=== PATIENT | male | born 1950 | race Two or more races ===

== ENCOUNTER 2024-05-26 13:40 | Emergency (ER) | payer OTHER, SELFPAY ==
[2024-05-26 13:55] VITALS: BP 110/67; PULSE 75; RESP 20; TEMP 36.7; O2SAT 96; BMI 31.6
--- NOTE | 2024-05-26 14:04 | XR_ITS ---
Examination: AP chest single view Technique one AP upright portable chest single view Exam date and time: May 26, 2024 1440 hours INDICATIONS: Patient fell today with injury of the chest, chest pain FINDINGS: Moderate enlargement cardiac contour Central vascular congestion No pneumothorax Clavicles ribs appear intact IMPRESSION: No pneumothorax pulmonary contusion or hemothorax
--- NOTE | 2024-05-26 14:04 | EKG_ITS ---
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: : 1950 Requested By: Sonya Eden Order Number: [id number] Reading MD: Sonya Eden Measurements Intervals Gaines Rate: 73 P: 60 FL: 280 QRS: -85 QRSD: 170 T: 83 QT: 463 QTc: 513 Interpretive Statements SINUS RHYTHM WITH FIRST DEGREE AV BLOCK RIGHT BUNDLE BRANCH BLOCK [120+ ms QRS DURATION, UPRIGHT V1, 40+ ms S IN I/aVL/V4/V5/V6] POSSIBLE ANTERIOR MYOCARDIAL INFARCTION , OF INDETERMINATE AGE [30 ms Q WAVE IN V3/V4, OR R < 0.2 mV IN V4] INFERIOR MYOCARDIAL INFARCTION , POSSIBLY ACUTE [40+ ms Q WAVE AND/OR ST/T ABNORMALITY IN II/aVF] ACUTE [place] Compared to ECG 04/26/2024 18:10:35 Right bundle-branch block now present Ectopic atrial rhythm no longer present Intraventricular conduction delay no longer present Myocardial infarct finding still present /store/S0/[id number]
--- NOTE | 2024-05-26 14:05 | XR_ITS ---
Examination: CT cervical spine without contrast 2-D sagittal reconstructions 2-D coronal reconstructions 3-D reconstructions. Exam date and time:May 26, 2024 1424 hours INDICATIONS: Patient fell today with into the neck, neck pain CTDI:vol (mGy) 8.73 DLP: (mGycm) 202 Technique: Multiple 2 mm axial sections of the cervical spine have been obtained. The coronal and sagittal reconstructions have been obtained. 3-D reconstructions have been obtained. Low dose protocols were performed. One or more of the following dose reduction techniques were used; automated exposure control, adjustment of the mA and/or KV according to patient size, use of iterative reconstruction technique. Findings: Axial sections demonstrate intact base of the skull. C1 exhibit satisfactory relationship to the odontoid. No acute cervical vertebral body fracture seen. Alignment posterior spinous processes satisfactory. Impression: No acute cervical fracture.
--- NOTE | 2024-05-26 14:05 | XR_ITS ---
Examination: CT brain head without contrast. 2-D sagittal coronal reconstructions Date and time of exam:May 26, 2024 at 1424 hours INDICATIONS: Patient fell today with injury to the head, laceration scalp head pain CTDI: vol (mGy):58.3 DLP: (mGycm):1269 Technique: Multiple CT axial sections of the brain have been obtained, 5 mm slice thickness. Contrast has not been administered. 2-D sagittal, coronal reconstructions have been obtained Low dose protocols were performed. One or more of the following dose reduction techniques were used; automated exposure control, adjustment of the mA and/or KV according to patient size, use of iterative reconstruction technique. Findings: No significant ventricular enlargement. 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 No mass effect or midline shift Basal cisterns are not remarkable. Fourth ventricle is midline. Cranial vault intact. Impression: Negative for acute hemorrhage, mass effect or midline shift
--- NOTE | 2024-05-26 14:06 | EDNOTE_ITS ---
ED Head Injury RME/HPI General Chief complaint: Head Injury Stated complaint: HEAD INJURY POST FALL W/ LOC; PREV TIA & THINNERS Time Seen by Provider: 05/26/24 13:51 Arrival date/time: 05/26/24 13:40 RME / HPI RME / HPI Narrative: 74-year-old male patient with significant history of TIA, on blood thinner, came in for evaluation regarding syncope. Patient was on the porch suddenly developed sudden onset of dizziness, and fell on his face resulting into abrasion, laceration, left forehead. Patient denies any neck pain. Patient does not remember for few minutes what happened. Patient denies any upper or lower extremity weakness, did not denies any slurring of speech, patient is talking normal complete sentences. Denies any other complaints no medications taken prior to arrival. Related Data Home Medications ?Medication ?Instructions ?Recorded ?Confirmed albuterol sulfate 90 mcg/actuation 2 puff inhalation Q6H PRN Wheezing 10/09/18 04/25/24 aerosol inhaler (ProAir HFA) aspirin 81 mg capsule 81 mg PO QDAY 04/25/24 04/25/24 atorvastatin 80 mg tablet 80 mg PO QDAY 04/25/24 04/25/24 bumetanide 1 mg tablet 1 mg PO BID 04/25/24 04/25/24 empagliflozin 10 mg tablet 10 mg PO QDAY 04/25/24 04/25/24 metoprolol succinate 25 mg 25 mg PO QDAY 04/25/24 04/25/24 tablet,extended release 24 hr sacubitril 24 mg-valsartan 26 mg 1 tab PO BID 04/25/24 04/25/24 tablet sitagliptin 50 mg tablet 50 mg PO QDAY 04/25/24 04/25/24 Previous Rx's ?Medication ?Instructions ?Recorded cephalexin 500 mg capsule 500 mg PO TID 7 days #21 caps 05/26/24 Allergies Allergy/AdvReac Type Severity Reaction Status Date / Time No Known Drug Allergies Allergy Unknown Verified 05/26/24 13:43 Review of Systems Review of Systems Narrative Review of Systems: Review of system reviewed and within normal limits except mentioned in HPI ED Exam Narrative Physical exam: VITAL SIGNS: Reviewed. GENERAL APPEARANCE: Alert and interactive, follows commands, no acute distress, HEAD AND FACE: + 2 cm gaping laceration left forehead, with abrasions noted surrounding ENT: PERRL, pink conjunctivitis, eyelid no trauma, Mucous membrane moist. NECK: Supple, nontender, no nuchal rigidity. CHEST: No tenderness, no crepitus, no paradoxical movement, no retractions. LUNGS: Clear, well ventilated, symmetric, no rales, no wheezing, no ronchi, no stridor, good breath sounds bilaterally. HEART: Regular rate, regular rhythm, no murmur, no gallops. ABDOMEN: Soft, positive bowel sounds, nondistended, no guarding, nontender, no rebound, no masses, RECTAL: Deferred. GENITAL: Deferred. NEUROLOGICAL: Gross motor function intact sensory function intact, Appropriate for age. MUSCULOSKELETAL: low back nontender, full range of motion. EXTREMITIES: Nontender, full range of motion. SKIN: Color pink, dry, no rash, no lacerations, no abrasions, no contusions. LYMPHATICS: Deferred. Course Quality Measures none Orders Category Date Time Status EKG (ED ONLY) *Do not use* NOW Care 05/26/24 14:[address] cervical spine wo con Stat Exams 05/26/24 14:[address] head/brain wo con Stat Exams 05/26/24 14:05 Completed EKG (ED Only) Stat Exams 05/26/24 14:04 Draft XR chest 1V Stat Exams 05/26/24 14:04 Completed B-Type Natriuretic Peptide Stat Lab 05/26/24 14:37 Completed CBC Stat Lab 05/26/24 14:37 Completed Comprehensive Metabolic Panel Stat Lab 05/26/24 14:37 Completed Partial Thromboplastin Time Stat Lab 05/26/24 14:37 Completed Prothrombin Time with INR Stat Lab 05/26/24 14:37 Completed Troponin I Stat Lab 05/26/24 14:37 Completed Urinalysis, C/S if Indicated Stat Lab 05/26/24 15:50 Completed cephALEXin [Keflex] Med 05/26/24 16:31 Discontinued 500 mg PO X1 ONE Vital Signs Vital signs: Vital Signs Temperature 98.0 F 05/26/24 13:55 Pulse Rate 75 05/26/24 13:55 Respiratory Rate 20 05/26/24 13:55 Blood Pressure 110/67 05/26/24 13:55 Pulse Oximetry (%) 96 05/26/24 13:55 Oxygen Delivery Method Room Air 05/26/24 13:55 Procedures -ED Laceration Laceration 1: Site: face (Forehead) Side (If applicable): left Size (cm): 2 Description: linear and clean Depth: simple, single layer Local Anesthetic: lidocaine 1% Amount of anesthesia used (mL): 3 Pre-repair: wound explored, irrigated extensively and deep structures intact Skin layer closed with: nylon Size (cm): 4-0 Number of sutures: 3 Technique: simple, interrupted Head Injury MDM Narrative MDM Narrative:: CT scan of the head came back unremarkable. CT scan of the cervical spine came back unremarkable. Laboratory enriqueta came back unremarkable. Except for BNP of more than 3280. Creatinine was also noted to be 2.0, which is chronic patient's baseline. Patient data External records reviewed:: None Clinical information provided by:: patient Social determinants that could affect healthcare access:: none Patient has the following chronic illnesses:: Chronic kidney disease, congestive heart failure, How is presenting disease/condition affected by chronic disease/condition?: exacerbated by Evaluation data The following diagnostics were reviewed and interpreted by me:: lab results, radiology exam(s) and EKG tracing(s) Lab and/or radiology exams considered but not ordered:: None Interpretation Summary: EKG showed sinus rhythm, ventricular rate of 83 bpm, no ST segment elevation depression noted CT scan of the head came back unremarkable. CT scan of the cervical spine came back unremarkable. Chest x-ray showed no acute pathology. Medications / Prescriptions Medications or Prescriptions considered but not ordered:: None Medication administrations:: Medication Administration History Discontinued Medications Cephalexin HCl (Cephalexin 250 Mg Capsule) 500 mg PO X1 ONE Stop: 05/26/24 16:32 Keflex Consultations Consultation(s) initiated? (list below): No Diagnosis Differential diagnosis head injury: other (Fall, forehead laceration, syncope) Most likely diagnosis given after review of the tests above:: Forehead laceration, syncope Admission Indicated Admission indicated?: not indicated Explain why admission is indicated or not indicated:: Patient stable for discharge. Patient was noted to be ambulatory in the ED. As witnessed by me Admission Request Was there a request for admission?: No Disposition Plan Disposition Plan: Discharge Discharge Attestation Discharge Attestation: The patient was given an opportunity to ask questions and understood the discharge instructions. Discharge instructions specifically effects, indications for sooner follow up or return to the emergency department, and the expected course of current diagnosis. Patient condition: Stable Discharge Plan Plan Patient Disposition: HOME (Self Care) Disposition Comment: Stable Prescriptions/Referrals Prescriptions/Med Rec: New cephalexin 500 mg capsule 500 mg PO TID 7 Days Qty: 21 0RF No Action albuterol sulfate [ProAir HFA] 90 mcg/actuation Hfa Aerosol Inhaler 2 puff INHALATION Q6H PRN (Reason: Wheezing) atorvastatin 80 mg Tablet 80 mg PO QDAY bumetanide 1 mg Tablet 1 mg PO BID metoprolol succinate 25 mg Tablet Extended Release 24 Hr 25 mg PO QDAY empagliflozin 10 mg Tablet 10 mg PO QDAY sacubitril-valsartan 24-26 mg Tablet 1 tab PO BID aspirin 81 mg Capsule 81 mg PO QDAY sitagliptin 50 mg Tablet 50 mg PO QDAY Problem List Clinical Impression: Forehead laceration, Syncope Patient/Caregiver Discharge Instructions Discharge Activity: activity as tolerated Education Materials: ED Head Injury (Adult) Additional Instructions: Thank you for the opportunity for serving you today. You are stable for discharged . You are advised to: Follow-up with your PCP in 1 to 2 days Return to ED for worsening of symptoms Increase oral fluids Take medication as prescribed Daily dressing Congespirin For removal of stitches in 7 days Print Language: Nigerian Stand Alone Forms: Sloane Award Info., Patient Portal Info Letter THERESA/SHER Supervising Physician THERESA/SHER Supervising Physician: MD Joseph
[2024-05-26 15:16] LABS: Basophils % (Auto) 0 % (0-2.5); Eosinophils % (Auto) 0 % (0-10); Hematocrit 40.8 % (41.0-53.0); Hemoglobin 13.2 g/dL (13.5-16.0); Immature Granulocytes % (Auto) 0 % (0-0); Immature Granulocytes Auto 0.03 Thou/mm3 (0.00-0.00); Lymphocytes # (Auto) 0.5 Thou/mm3 (1.0-4.8); Lymphocytes % (Auto) 6 % (10-50); Mean Corpuscular HGB Conc 32.4 g/dl (31.0-37.0); Mean Corpuscular Hemoglobin 31.8 pg (25.0-35.0); Mean Corpuscular Volume 98 fL (80-100); Monocytes # (Auto) 0.4 Thou/mm3 (0.0-0.8); Monocytes % (Auto) 5 % (0-12); Neutrophils # (Auto) 7.4 Thou/mm3 (1.8-7.7); Neutrophils % (Auto) 89 % (37-80); Nucleated Red Blood Cell % 0 /100 WBC (0); Platelet Count 247 Thou/mm3 (140-440); Red Blood Count 4.15 Miln/mm3 (4.50-5.90); White Blood Count 8.3 Thou/mm3 (3.8-10.6)
[2024-05-26 15:48] LABS: B-Type Natriuretic Peptide > 3280 pg/mL (0-100)
[2024-05-26 15:51] LABS: Alanine Aminotransferase 16 U/L (10-49); Albumin/Globulin Ratio 1.3 (1.2-2.2); Alkaline Phosphatase 95 U/L (46-116); Anion Gap 8 (7-16); Aspartate Amino Transferase 21 U/L (0-34); BUN/Creatinine Ratio 34 Ratio (12-20); Bilirubin,Total 0.5 mg/dL (0.3-1.2); Blood Urea Nitrogen 68 mg/dL (9-23); Calcium 9.2 mg/dL (8.3-10.6); Calcium (Corrected) 9.2 mg/dL (8.5-10.1); Carbon Dioxide 27.8 mMol/L (20.0-31.0); Chloride 103 mMol/L (98-107); Glucose 174 mg/dL (74-106); Osmolality,Calculated 301 (275-295); Potassium 4.7 mMol/L (3.4-5.1); Sodium 139 mMol/L (136-145); Troponin I 0.032 ng/mL (0.0-0.045); eGFR 35 See Note
[2024-05-26 15:57] LABS: Collection Type, Urine Clean Catch; Squamous Epithelial Cell,Urine 0 /hpf (0-5)
[2024-05-26 15:58] LABS: INR 1.4 (0.9-1.3); Partial Thromboplastin Time 27.6 Seconds (22.0-36.0)
[2024-05-26 16:08] LABS: Bilirubin,Urine Negative (Negative); Blood,Urine Negative (Negative); Clarity,Urine Clear (Clear/Hazy); Color,Urine Lt-Yellow (Lt Yel-Yel); Culture Indicated,Urine Not Indicated; Glucose, Urine 4+ (Negative); Ketones,Urine Negative (Negative); Leukocyte Esterase,Urine Negative (Negative); Nitrite,Urine Negative (Negative); PH,Urine 6.5 (5.0-7.0); Protein,Urine Trace (Neg - Trace); RBC,Urine < 1 /hpf (0-3); Specific Gravity,Urine 1.015 (1.001-1.035); Urobilinogen,Urine Negative mg/dL (0.0-1.0); WBC,Urine 1 /hpf (0-5)
== END 2024-05-26 19:01 | disposition home or self-care (01) ==
LOC: SERX 19:16
PROVIDERS: Nurse Practitioner Family; Emergency Provider Emergency Medicine
DX: S01.81XA Laceration without foreign body of other part of head, initial encounter (principal); S29.9XXA Unspecified injury of thorax, initial encounter; R55 Syncope and collapse; I44.0 Atrioventricular block, first degree; I45.10 Unspecified right bundle-branch block; W18.39XA Other fall on same level, initial encounter
CPT/HCPCS: 12011; 36415; 70450; 71045; 72125; 80053; 81001; 83880; 84484; 85025; 85610; 85730; 93005; 99284

== ENCOUNTER 2024-06-08 15:38 | Emergency (ER) | payer MEDICARE, OTHER, SELFPAY ==
[2024-06-08 16:04] VITALS: BP 99/61; PULSE 66; RESP 18; TEMP 36.9; O2SAT 96
--- NOTE | 2024-06-08 16:21 | EDNOTE_ITS ---
ED General RME/HPI General Chief complaint: Medical Clearance Stated complaint: removal of stitches Time Seen by Provider: 06/08/24 16:16 Arrival date/time: 06/08/24 15:38 RME / HPI RME / HPI narrative: 74-year-old male patient came in for evaluation regarding request for removal of stitches in the forehead. Patient sustained a ground-level fall about 2 weeks ago, sustaining abrasion/laceration to the forehead. No complaints on the area. Patient is ambulatory denies fever. Related Data Home Medications ?Medication ?Instructions ?Recorded ?Confirmed albuterol sulfate 90 mcg/actuation 2 puff inhalation Q6H PRN Wheezing 10/09/18 05/28/24 aerosol inhaler (ProAir HFA) aspirin 81 mg capsule 81 mg PO QDAY 04/25/24 05/28/24 atorvastatin 80 mg tablet 80 mg PO QDAY 04/25/24 05/28/24 bumetanide 1 mg tablet 1 mg PO BID 04/25/24 05/28/24 empagliflozin 10 mg tablet 10 mg PO QDAY 04/25/24 05/28/24 sacubitril 24 mg-valsartan 26 mg 1 tab PO BID 04/25/24 05/28/24 tablet nicotine 14 mg/24 hr daily See Rx Instructions .Route .COMPLEX 05/28/24 05/28/24 transdermal patch (Nicoderm CQ) Previous Rx's ?Medication ?Instructions ?Recorded carvedilol 3.125 mg tablet 3.125 mg PO BID 30 days #60 tabs 06/01/24 Allergies Allergy/AdvReac Type Severity Reaction Status Date / Time No Known Drug Allergies Allergy Unknown Verified 05/26/24 13:43 Review of Systems Review of Systems Narrative Review of Systems: Review of system reviewed and within normal limits except mentioned in HPI ED Exam Narrative Physical exam: VITAL SIGNS: Reviewed. GENERAL APPEARANCE: Alert and interactive, follows commands, no acute distress, HEAD AND FACE: Healed laceration left side of the forehead with stitches x 3, no drainage noted no redness nontender ENT: PERRL, pink conjunctivitis, eyelid no trauma, Mucous membrane moist. NECK: Supple, nontender, no nuchal rigidity. CHEST: No tenderness, no crepitus, no paradoxical movement, no retractions. LUNGS: Clear, well ventilated, symmetric, no rales, no wheezing, no ronchi, no stridor, good breath sounds bilaterally. HEART: Regular rate, regular rhythm, no murmur, no gallops. ABDOMEN: Soft, positive bowel sounds, nondistended, no guarding, nontender, no rebound, no masses, RECTAL: Deferred. GENITAL: Deferred. NEUROLOGICAL: Gross motor function intact sensory function intact, Appropriate for age. MUSCULOSKELETAL: low back nontender, full range of motion. EXTREMITIES: Nontender, full range of motion. SKIN: Color pink, dry, no rash, no lacerations, no abrasions, no contusions. LYMPHATICS: Deferred. Course Quality Measures none Vital Signs Vital signs: Vital Signs Temperature 98.5 F 06/08/24 16:04 Pulse Rate 66 06/08/24 16:04 Respiratory Rate 18 06/08/24 16:04 Blood Pressure 99/61 06/08/24 16:04 Pulse Oximetry (%) 96 06/08/24 16:04 Oxygen Delivery Method Room Air 06/08/24 16:04 [facility] Patient data External records reviewed:: None Clinical information provided by:: none Social determinants that could affect healthcare access:: none Patient has the following chronic illnesses:: Hypertension congestive heart failure How is presenting disease/condition affected by chronic disease/condition?: uneffected by Evaluation data The following diagnostics were reviewed and interpreted by me:: other (specify) (None) Lab and/or radiology exams considered but not ordered:: None Interpretation Summary: Plan Medications Medications considered but not ordered:: None Medication administrations:: None Consultations Consultation(s) initiated? (list below): No Diagnosis Differential Diagnosis ED Complaint MDM: Encounter with removal of sutures, wound check Most likely diagnosis given after review of the tests above:: Encounter with removal of suture Admission Indicated Admission indicated?: not indicated Explain why admission is indicated or not indicated:: Stable for discharge Admission Request Was there a request for admission?: No Disposition Plan Disposition Plan: Discharge Discharge Attestation Discharge Attestation: The patient and all family members were given an opportunity to ask questions and understood the discharge instructions. Discharge instructions specifically effects, indications for sooner follow up or return to the emergency department, and the expected course of current diagnosis. Patient condition: Stable Medical Decision Making Differential Diagnosis Differential Diagnosis: Encounter with removal of sutures, wound check Discharge Plan Plan Patient Disposition: HOME (Self Care) Disposition Comment: Stable Prescriptions/Referrals Prescriptions/Med Rec: No Action albuterol sulfate [ProAir HFA] 90 mcg/actuation Hfa Aerosol Inhaler 2 puff INHALATION Q6H PRN (Reason: Wheezing) atorvastatin 80 mg Tablet 80 mg PO QDAY bumetanide 1 mg Tablet 1 mg PO BID empagliflozin 10 mg Tablet 10 mg PO QDAY sacubitril-valsartan 24-26 mg Tablet 1 tab PO BID Hold Instructions: Resume on 06/01/24. Restart after seeing your PCP or Dr. Horta, depending on your BP. aspirin 81 mg Capsule 81 mg PO QDAY nicotine [Nicoderm CQ] 14 mg/24 hr Patch 24 Hour See Rx Instructions .ROUTE .COMPLEX Rx Instructions: for smoking cessation carvedilol 3.125 mg Tablet 3.125 mg PO BID 30 Days Qty: 60 0RF Problem List Clinical Impression: Encounter for removal of sutures Patient/Caregiver Discharge Instructions Discharge Activity: activity as tolerated Education Materials: ED Stitches/Staple Removal No ... Additional Instructions: Thank you for the opportunity for serving you today. You are stable for discharged . You are advised to: Follow-up with your PCP in 1 to 2 days Return to ED for worsening of symptoms Increase oral fluids Print Language: Hungarian Stand Alone Forms: Sloane Award Info., Patient Portal Info Letter THERESA/SHER Supervising Physician THERESA/SHER Supervising Physician: MD maryjo
== END 2024-06-08 16:24 | disposition home or self-care (01) ==
LOC: SERX 16:23
PROVIDERS: Emergency Provider Emergency Medicine
DX: S01.81XD Laceration without foreign body of other part of head, subsequent encounter (principal); W18.30XD Fall on same level, unspecified, subsequent encounter
CPT/HCPCS: 99282

== ENCOUNTER 2024-06-10 04:29 | Emergency (ER) | payer OTHER, SELFPAY ==
[2024-06-10 04:30] VITALS: BMI 34.4
[2024-06-10 04:33] VITALS: BP 121/83; PULSE 81; RESP 16; TEMP 36.7; O2SAT 97
--- NOTE | 2024-06-10 05:26 | EDRME_ITS ---
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 Patient denies CP and SOB. Patient has been taking his meds as prescribed. Chief Complaint: Extremity Problem,Nontraumatic Vital signs: Vital Signs Temperature 98.1 F 06/10/24 04:33 Pulse Rate 81 06/10/24 04:33 Respiratory Rate 16 06/10/24 04:33 Blood Pressure 121/83 06/10/24 04:33 Pulse Oximetry (%) 97 06/10/24 04:33 Oxygen Delivery Method Room Air 06/10/24 04:33
--- NOTE | 2024-06-10 05:42 | PD.EDEXREM ---
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 Patient denies CP and SOB. Patient has been taking his meds as prescribed. Dr. Laurent: Patient denies any emergency medical condition. Related Data Home Medications ?Medication ?Instructions ?Recorded ?Confirmed albuterol sulfate 90 mcg/actuation 2 puff inhalation Q6H PRN Wheezing 10/09/18 05/28/24 aerosol inhaler (ProAir HFA) aspirin 81 mg capsule 81 mg PO QDAY 04/25/24 05/28/24 atorvastatin 80 mg tablet 80 mg PO QDAY 04/25/24 05/28/24 bumetanide 1 mg tablet 1 mg PO BID 04/25/24 05/28/24 empagliflozin 10 mg tablet 10 mg PO QDAY 04/25/24 05/28/24 sacubitril 24 mg-valsartan 26 mg 1 tab PO BID 04/25/24 05/28/24 tablet nicotine 14 mg/24 hr daily See Rx Instructions .Route .COMPLEX 05/28/24 05/28/24 transdermal patch (Nicoderm CQ) Previous Rx's ?Medication ?Instructions ?Recorded carvedilol 3.125 mg tablet 3.125 mg PO BID 30 days #60 tabs 06/01/24 Allergies Allergy/AdvReac Type Severity Reaction Status Date / Time No Known Drug Allergies Allergy Unknown Verified 06/10/24 04:32 Review of Systems Review of Systems Systems Reviewed: All systems reviewed, normal except as documented ED Exam Narrative Physical exam: Patient is [place] General Limitations: Present no limitations General appearance: Present alert and in no apparent distress Eye Eye exam: Present normal appearance Neck Neck exam: Present normal inspection Respiratory Respiratory exam: Present normal lung sounds bilaterally and respiratory distress Cardiovascular Cardiovascular exam: Present regular rate and normal rhythm Abdominal Exam Abdominal exam: Present soft Extremities Exam Extremities exam: Present other (Patient has 2+ BLE pretibial edema as well as chronic stasis dermatitis of BLE) Course Quality Measures none Orders Category Date Time Status BNP [B-Type Natriuretic Peptide] Stat Lab 06/10/24 05:48 Completed CBC Stat Lab 06/10/24 05:48 Completed CMP [Comprehensive Metabolic Panel] Stat Lab 06/10/24 05:48 Completed Urinalysis, C/S if Indicated Stat Lab 06/10/24 07:03 Completed Vital Signs Vital signs: Vital Signs Temperature 98.1 F 06/10/24 04:33 Pulse Rate 81 06/10/24 04:33 Respiratory Rate 16 06/10/24 04:33 Blood Pressure 121/83 06/10/24 04:33 Pulse Oximetry (%) 97 06/10/24 04:33 Oxygen Delivery Method Room Air 06/10/24 04:33 Extremity Problem Patient data External records reviewed:: [facility] previous records Clinical information provided by:: patient Social determinants that could affect healthcare access:: none Patient has the following chronic illnesses:: Meth. CHF How is presenting disease/condition affected by chronic disease/condition?: caused by Evaluation data The following diagnostics were reviewed and interpreted by me:: lab results Lab and/or radiology exams considered but not ordered:: Noted Interpretation Summary: Noted Medications / Prescriptions Medications or Prescriptions considered but not ordered:: Patient eloped Medication administrations:: NA Consultations Consultation(s) initiated? (list below): No Diagnosis Most likely diagnosis given after review of the tests above:: Edema Admission Indicated Admission indicated?: not indicated Admission Request Was there a request for admission?: No Disposition Plan Disposition Plan: Discharge Discharge Attestation Discharge Attestation: The patient and all family members were given an opportunity to ask questions and understood the discharge instructions. Discharge instructions specifically effects, indications for sooner follow up or return to the emergency department, and the expected course of current diagnosis. Patient condition: Stable Discharge Plan Plan Patient Disposition: Elopement Prescriptions/Referrals Prescriptions/Med Rec: No Action albuterol sulfate [ProAir HFA] 90 mcg/actuation Hfa Aerosol Inhaler 2 puff INHALATION Q6H PRN (Reason: Wheezing) atorvastatin 80 mg Tablet 80 mg PO QDAY bumetanide 1 mg Tablet 1 mg PO BID empagliflozin 10 mg Tablet 10 mg PO QDAY sacubitril-valsartan 24-26 mg Tablet 1 tab PO BID Hold Instructions: Resume on 06/01/24. Restart after seeing your PCP or Dr. Horta, depending on your BP. aspirin 81 mg Capsule 81 mg PO QDAY nicotine [Nicoderm CQ] 14 mg/24 hr Patch 24 Hour See Rx Instructions .ROUTE .COMPLEX Rx Instructions: for smoking cessation carvedilol 3.125 mg Tablet 3.125 mg PO BID 30 Days Qty: 60 0RF Referrals: No Primary/Family,Physician [Primary Care Provider] - In 1 week Problem List Clinical Impression: Edema Patient/Caregiver Discharge Instructions Print Language: Slovenian
[2024-06-10 06:16] LABS: Basophils # (Auto) 0.1 Thou/mm3 (0.0-0.2); Basophils % (Auto) 1 % (0-2.5); Eosinophils # (Auto) 0.3 Thou/mm3 (0.0-0.5); Eosinophils % (Auto) 4 % (0-10); Hematocrit 39.1 % (41.0-53.0); Hemoglobin 12.6 g/dL (13.5-16.0); Immature Granulocytes % (Auto) 0 % (0-0); Immature Granulocytes Auto 0.03 Thou/mm3 (0.00-0.00); Lymphocytes # (Auto) 1.5 Thou/mm3 (1.0-4.8); Lymphocytes % (Auto) 16 % (10-50); Mean Corpuscular HGB Conc 32.2 g/dl (31.0-37.0); Mean Corpuscular Hemoglobin 30.9 pg (25.0-35.0); Mean Corpuscular Volume 96 fL (80-100); Monocytes # (Auto) 0.7 Thou/mm3 (0.0-0.8); Monocytes % (Auto) 8 % (0-12); Neutrophils # (Auto) 6.5 Thou/mm3 (1.8-7.7); Neutrophils % (Auto) 72 % (37-80); Nucleated Red Blood Cell % 0 /100 WBC (0); Platelet Count 144 Thou/mm3 (140-440); RDW Standard Deviation 56.7 fL (35.1-43.9); Red Blood Count 4.08 Miln/mm3 (4.50-5.90)
[2024-06-10 06:53] LABS: Alanine Aminotransferase 19 U/L (10-49); Albumin, Serum 3.9 gm/dL (3.4-4.8); Albumin/Globulin Ratio 1.4 (1.2-2.2); Alkaline Phosphatase 100 U/L (46-116); Anion Gap 5 (7-16); Aspartate Amino Transferase 26 U/L (0-34); BUN/Creatinine Ratio 22 Ratio (12-20); Blood Urea Nitrogen 44 mg/dL (9-23); Calcium 9.5 mg/dL (8.3-10.6); Calcium (Corrected) 9.6 mg/dL (8.5-10.1); Carbon Dioxide 29.4 mMol/L (20.0-31.0); Chloride 108 mMol/L (98-107); Estimated Creatinine Clearance 37.6 mL/min (>60); Globulin 2.7 gm/dL (2.3-3.5); Glucose 103 mg/dL (74-106); Osmolality,Calculated 294 (275-295); Potassium 4.6 mMol/L (3.4-5.1); Sodium 142 mMol/L (136-145); Total Protein 6.6 gm/dL (5.7-8.2); eGFR 35 See Note
[2024-06-10 07:28] LABS: Collection Type, Urine Clean Catch
[2024-06-10 07:46] LABS: Bilirubin,Urine Negative (Negative); Blood,Urine Negative (Negative); Clarity,Urine Clear (Clear/Hazy); Color,Urine Lt-Yellow (Lt Yel-Yel); Culture Indicated,Urine Not Indicated; Glucose, Urine 4+ (Negative); Ketones,Urine Negative (Negative); Leukocyte Esterase,Urine Negative (Negative); Nitrite,Urine Negative (Negative); PH,Urine 6.5 (5.0-7.0); Protein,Urine Trace (Neg - Trace); RBC,Urine < 1 /hpf (0-3); Specific Gravity,Urine 1.017 (1.001-1.035); Squamous Epithelial Cell,Urine < 1 /hpf (0-5); Urobilinogen,Urine Negative mg/dL (0.0-1.0); WBC,Urine < 1 /hpf (0-5)
[2024-06-10 07:58] VITALS: BP 129/77; PULSE 79; RESP 20; TEMP 36.9; O2SAT 97
--- NOTE | 2024-06-10 10:18 | PC.NURSE ---
pt eloped from triage @1000
[2024-06-10 11:09] LABS: Bilirubin,Total 0.6 mg/dL (0.3-1.2)
[2024-06-10 12:05] LABS: B-Type Natriuretic Peptide > 3280 pg/mL (0-100)
== END 2024-06-10 10:00 | disposition left against medical advice (07) ==
PROVIDERS: Physician Assistant; Emergency Provider Emergency Medicine
DX: R60.0 Localized edema (principal)
CPT/HCPCS: 36415; 80053; 81001; 83880; 85025; 99283

== ENCOUNTER 2024-06-22 10:13 | Emergency (ER) | payer OTHER, SELFPAY ==
[2024-06-22] VITALS (8 sets, daily range): BP systolic 105–121; BP diastolic 70–89; PULSE 60–72; RESP 13–24; TEMP 36.8–37.1; O2SAT 90–99; BMI 31.6
--- NOTE | 2024-06-22 10:25 | EKG_ITS ---
[facility] Test Date: 2024-06-22 Pat Name: MEREDITH AYALA Department: Room: - Gender: Male Director Mortgage: : 1950 Requested By: Wei Prince (CLARA) Order Number: [id number] Reading MD: Wei Prince (DEMURRAGE WORKER) Measurements Intervals Jachin Rate: 61 P: -48 MD: 314 QRS: 252 QRSD: 187 T: 82 QT: 479 QTc: 484 Interpretive Statements ELECTRONIC ATRIAL PACEMAKER ELECTRONIC VENTRICULAR PACEMAKER ABNORMAL RHYTHM ECG Compared to ECG 05/28/2024 08:59:56 Sinus rhythm no longer present Ventricular premature complex(es) no longer present First degree AV block no longer present Left-axis deviation no longer present Intraventricular conduction delay no longer present Myocardial infarct finding no longer present /store/S0/[id number]
--- NOTE | 2024-06-22 10:31 | PD.EDRME ---
Rapid Medical Screening Exam RME Arrival date/time: 06/22/24 10:13 74-year-old male with history of hypertension, CHF, methamphetamine abuse presents the emergency department today with complaints of shortness of breath Chief Complaint: Extremity Problem,Nontraumatic Time Seen by Provider: 06/22/24 10:23 Vital signs: Vital Signs Temperature 98.2 F 06/22/24 10:30 Pulse Rate 60 06/22/24 10:30 Respiratory Rate 22 H 06/22/24 10:30 Blood Pressure 121/79 06/22/24 10:30 Pulse Oximetry (%) 95 06/22/24 10:30 Oxygen Delivery Method Room Air 06/22/24 10:30
[2024-06-22 10:57] LABS: Basophils # (Auto) 0.1 Thou/mm3 (0.0-0.2); Basophils % (Auto) 1 % (0-2.5); Eosinophils # (Auto) 0.4 Thou/mm3 (0.0-0.5); Eosinophils % (Auto) 5 % (0-10); Hematocrit 40.8 % (41.0-53.0); Hemoglobin 12.9 g/dL (13.5-16.0); Immature Granulocytes % (Auto) 0 % (0-0); Immature Granulocytes Auto 0.02 Thou/mm3 (0.00-0.00); Lymphocytes # (Auto) 1.3 Thou/mm3 (1.0-4.8); Lymphocytes % (Auto) 19 % (10-50); Mean Corpuscular HGB Conc 31.6 g/dl (31.0-37.0); Mean Corpuscular Hemoglobin 30.6 pg (25.0-35.0); Mean Corpuscular Volume 97 fL (80-100); Monocytes # (Auto) 0.6 Thou/mm3 (0.0-0.8); Monocytes % (Auto) 8 % (0-12); Neutrophils # (Auto) 4.6 Thou/mm3 (1.8-7.7); Neutrophils % (Auto) 67 % (37-80); Nucleated Red Blood Cell % 0 /100 WBC (0); Platelet Count 137 Thou/mm3 (140-440); RDW Standard Deviation 56.3 fL (35.1-43.9); Red Blood Count 4.22 Miln/mm3 (4.50-5.90); White Blood Count 6.9 Thou/mm3 (3.8-10.6)
--- NOTE | 2024-06-22 10:58 | XR_ITS ---
Examination: AP chest single view TECHNIQUE: AP portable upright chest single view Exam date and time: June 22, 2024 1126 hours Comparison May 28, 2024 INDICATIONS: Shortness of breath today FINDINGS: Bilateral moderate enlargement cardiac contour Moderate vascular congestion Opacity right base consistent with pneumonia Moderate osteopenia IMPRESSION: Right base pneumonia
[2024-06-22] MEDS: predniSONE 20 MG TABLET 60 MG PO (11:07)
[2024-06-22] MEDS: FUROSEMIDE INJ 10 MG/ML 4ML VIAL 40 MG IVP ×2 (11:07→12:51)
[2024-06-22 11:12] LABS: INR 1.4 (0.9-1.3)
[2024-06-22] MEDS: ALBUTEROL RT 2.5 MG/0.5 ML NEBU 10 MG INH (11:14)
[2024-06-22] MEDS: IPRATROPIUM RT 0.5 MG/ 2.5 ML NEBU 1 MG INH (11:14)
[2024-06-22 11:27] LABS: Alanine Aminotransferase 24 U/L (10-49); Albumin, Serum 4.2 gm/dL (3.4-4.8); Albumin/Globulin Ratio 1.4 (1.2-2.2); Alkaline Phosphatase 119 U/L (46-116); Anion Gap 6 (7-16); Aspartate Amino Transferase 30 U/L (0-34); BUN/Creatinine Ratio 26 Ratio (12-20); Bilirubin,Total 0.7 mg/dL (0.3-1.2); Blood Urea Nitrogen 52 mg/dL (9-23); Calcium 9.3 mg/dL (8.3-10.6); Calcium (Corrected) 9.3 mg/dL (8.5-10.1); Carbon Dioxide 26.9 mMol/L (20.0-31.0); Chloride 106 mMol/L (98-107); Globulin 3.1 gm/dL (2.3-3.5); Glucose 92 mg/dL (74-106); Magnesium 2.9 mg/dL (1.6-2.6); Osmolality,Calculated 291 (275-295); Potassium 4.6 mMol/L (3.4-5.1); Sodium 139 mMol/L (136-145); Total Protein 7.3 gm/dL (5.7-8.2); Troponin I 0.029 ng/mL (0.0-0.045); eGFR 35 See Note
[2024-06-22 11:32] LABS: B-Type Natriuretic Peptide > 3280 pg/mL (0-100)
[2024-06-22 11:49] LABS: Amphetamine/Methamp Scrn,U Negative (Negative); Barbiturate Screen,Urine Negative (Negative); Benzodiazepines Screen,Urine Negative (Negative); Benzoylecgonine Screen, Ur Negative (Negative); Fentanyl Screen,Urine Negative (Negative); Opiate Screen,Urine Negative (Negative); THC Screen,Urine Negative (Negative)
--- NOTE | 2024-06-22 12:59 | PC.NURSE ---
Pt given sandwich, hips, and drink, per pt request.
--- NOTE | 2024-06-22 17:02 | PD.EDSOB ---
ED SOB =RME/HPI General Chief Complaint: Extremity Problem,Nontraumatic Stated Complaint: BILAT LEG SWELLING AND SOB/WHEEZING X YESTERDAY Time Seen by Provider: 06/22/24 10:23 Arrival date/time: 06/22/24 10:13 RME / HPI RME / HPI Narrative: 06/22/24 10:13 74-year-old male with history of hypertension, CHF, methamphetamine abuse presents the emergency department today with complaints of shortness of breath KUAH HPI: 74-year-old male with a history of CHF, COPD (on 2 L nasal cannula), past methamphetamine use (last use over 1 year ago) who presents to the emergency department with worsening shortness of breath, productive cough, and lower extremity swelling. He denies chest pain. He denies fevers chills or sweats. He denies sick contact. He notes copious productive action of yellow to green sputum without blood or brawny streaks. Related Data Home Medications ?Medication ?Instructions ?Recorded ?Confirmed albuterol sulfate 90 mcg/actuation 2 puff inhalation Q6H PRN Wheezing 10/09/18 05/28/24 aerosol inhaler (ProAir HFA) aspirin 81 mg capsule 81 mg PO QDAY 04/25/24 05/28/24 atorvastatin 80 mg tablet 80 mg PO QDAY 04/25/24 05/28/24 bumetanide 1 mg tablet 1 mg PO BID 04/25/24 05/28/24 empagliflozin 10 mg tablet 10 mg PO QDAY 04/25/24 05/28/24 sacubitril 24 mg-valsartan 26 mg 1 tab PO BID 04/25/24 05/28/24 tablet nicotine 14 mg/24 hr daily See Rx Instructions .Route .COMPLEX 05/28/24 05/28/24 transdermal patch (Nicoderm CQ) Previous Rx's ?Medication ?Instructions ?Recorded carvedilol 3.125 mg tablet 3.125 mg PO BID 30 days #60 tabs 06/01/24 doxycycline monohydrate 100 mg 100 mg PO BID #10 caps 06/22/24 capsule oseltamivir 75 mg capsule (Tamiflu) 75 mg PO Q12H 5 days #10 caps 06/22/24 prednisone 50 mg tablet 50 mg PO QDAY 5 days #5 tabs 06/22/24 Allergies Allergy/AdvReac Type Severity Reaction Status Date / Time No Known Drug Allergies Allergy Unknown Verified 06/22/24 10:14 Review of Systems Review of Systems Systems Reviewed: All systems reviewed, normal except as documented ED Exam Narrative Physical exam: GENERAL APPEARANCE: AxOx4, chronically ill-appearing, tachypneic, with audible coarse rhonchi when speaking HEENT: NC, AT. MMM. EOMI, clear conjunctiva, oropharynx clear. NECK: Supple without lymphadenopathy. No stiffness or restricted ROM. HEART: Normal rate and regular rhythm, normal S1/S1, no m/r/g LUNGS: Diminished breath sounds in all lung burton, marte expiratory wheezes, diffuse rhonchi in all lung burton. ABDOMEN: Soft, nontender, nondistended with good bowel sounds heard. BACK: No midline C/T/L spine pain or deformity, No CVAT, no obvious deformity. EXTREMITIES: Without cyanosis, clubbing or 3+ bilateral lower extremity pitting edema. MUSCULOSKELETAL: FROM of all major joints, no chest tenderness NEUROLOGICAL: Grossly nonfocal. Alert and oriented, moving all 4 extremities. CN not formally tested but appear grossly intact. Observed to ambulate with normal gait. Skin: Warm and dry without any rash. Course Quality Measures none Orders Category Date Time Status EKG (ED ONLY) *Do not use* NOW Care 06/22/24 10:25 Completed EKG (ED Only) Stat Exams 06/22/24 10:25 Draft XR chest 1V Stat Exams 06/22/24 10:58 Completed B-Type Natriuretic Peptide Stat Lab 06/22/24 10:43 Completed CBC Stat Lab 06/22/24 10:43 Completed Comprehensive Metabolic Panel Stat Lab 06/22/24 10:43 Completed Drug Screen,Urine Stat Lab 06/22/24 11:25 Completed Magnesium Stat Lab 06/22/24 10:43 Completed Partial Thromboplastin Time Stat Lab 06/22/24 10:43 Completed Prothrombin Time with INR Stat Lab 06/22/24 10:43 Completed Troponin I Stat Lab 06/22/24 10:43 Completed ALBUTEROL RT 0.5ml [Proventil Rt 0.5ml] Med 06/22/24 10:57 Discontinued 10 mg INH X1 ONE Furosemide Inj [Lasix Inj] Med 06/22/24 10:57 Discontinued 40 mg IVP X1 ONE Furosemide Inj [Lasix Inj] Med 06/22/24 12:20 Discontinued 40 mg IVP X1 ONE Ipratropium [place] Rt Kayleigh [Atrovent Rt Kayleigh] Med 06/22/24 10:57 Discontinued 1 mg INH X1 ONE Sodium Chloride Rt Kayleigh 0.9% [NS Rt Kayleigh 0.9%] Med 06/22/24 10:57 Active 3 ml INH PRN PRN predniSONE Med 06/22/24 10:57 Discontinued 60 mg PO X1 ONE Reevaluation(s) Reevaluation #1: Patient noted little over 1 urinal container of urine output since diuresis. He is able to ambulate to the bathroom and back with minimal shortness of breath. He feels like he would like to go home. Time: 16:30 Vital Signs Vital signs: Vital Signs Temperature 98.2 F 06/22/24 10:30 Pulse Rate 60 06/22/24 10:30 Respiratory Rate 22 H 06/22/24 10:30 Blood Pressure 121/79 06/22/24 10:30 Pulse Oximetry (%) 95 06/22/24 10:30 Oxygen Delivery Method Room Air 06/22/24 10:30 SpO2 95% on room air, patient is not hypoxic Shortness of Breath / Dyspnea MDM Narrative MDM Narrative:: Mr. Rudd has a history of CHF and COPD who presents with clinical exam more consistent with a COPD exacerbation with acute bronchitis. As a result he was treated aggressively with nebulized bronchodilators and oral steroids while in the emergency department. Laboratory testing was sent via the [facility] process which is significant for normal white blood cell count, a borderline elevated creatinine at 2.0 (baseline compared to previous laboratory testing) and a BNP of 3200. I suspect this is more of a component of chronic CHF and renal insufficiency based on his physical exam. However since he does have chronic CHF he was diuresed as well here in the emergency department. After aggressive treatment he noted significant improvement in his respiratory effort and feels comfortable going home. He is ambulatory here in the emergency department does feel much and appear much better. Chest x-ray my interpretation shows cardiomegaly, and faint interstitial margin consistent with a mild CHF exacerbation. I did review the radiology interpretation and find that the right lower lobe infiltrate is questionable as he has several leads and wires that are blocking the diaphragm. Regardless given he does have a relatively copious productive cough he will require oral antibiotics in addition to oral steroids to treat his COPD exacerbation. Regardless his he is now improved significantly symptomatically, as stable vital signs, he is appropriate for outpatient management. Patient data External records reviewed:: [facility] previous records Clinical information provided by:: patient Social determinants that could affect healthcare access:: none Patient has the following chronic illnesses:: CHF, COPD, chronic renal insufficiency How is presenting disease/condition affected by chronic disease/condition?: caused by Evaluation data The following diagnostics were reviewed and interpreted by me:: lab results, radiology exam(s) and EKG tracing(s) Lab and/or radiology exams considered but not ordered:: None Interpretation Summary: EKG shows a paced rhythm without acute ST or T wave changes. None Medications / Prescriptions Medications or Prescriptions considered but not ordered:: None Medication administrations:: Medication Administration History Sodium Chloride (Sodium Chloride Rt Kayleigh 0.9% 3 Ml Nebu) 3 ml INH PRN PRN PRN Reason: SOLN Stop: 07/22/24 10:56 Discontinued Medications Albuterol (Albuterol Rt 2.5 Mg/0.5 Ml Nebu) 10 mg INH X1 ONE Stop: 06/22/24 10:58 Last Admin: 06/22/24 11:14 Dose: 10 mg Documented By: LO Furosemide (Furosemide Inj 10 Mg/Ml 4ml Vial) 40 mg IVP X1 ONE Stop: 06/22/24 10:58 Last Admin: 06/22/24 11:07 Dose: 40 mg Documented By: AM Furosemide (Furosemide Inj 10 Mg/Ml 4ml Vial) 40 mg IVP X1 ONE Stop: 06/22/24 12:21 Last Admin: 06/22/24 12:51 Dose: 40 mg Documented By: AM Ipratropium [place] (Ipratropium Rt 0.5 Mg/ 2.5 Ml Nebu) 1 mg INH X1 ONE Stop: 06/22/24 10:58 Last Admin: 06/22/24 11:14 Dose: 1 mg Documented By: LO Prednisone (Prednisone 20 Mg Tablet) 60 mg PO X1 ONE Stop: 06/22/24 10:58 Last Admin: 06/22/24 11:07 Dose: 60 mg Documented By: AM Above Consultations Consultation(s) initiated? (list below): No Diagnosis Shortness of Breath Differential Diagnosis: acute exacerbation of chronic obstructive airways disease, congestive heart failure, community acquired pneumonia and asthma with exacerbation Most likely diagnosis given after review of the tests above:: See below Admission Indicated Admission indicated?: not indicated Admission Request Was there a request for admission?: No Disposition Plan Disposition Plan: Discharge Discharge Attestation Discharge Attestation: The patient and all family members were given an opportunity to ask questions and understood the discharge instructions. Discharge instructions specifically effects, indications for sooner follow up or return to the emergency department, and the expected course of current diagnosis. Patient condition: Stable Critical Care Time Critical Care Time Critical Care Time: Yes Total Critical Care Time (min.): 35 Attestation: Excluding billable procedures for the rapid response, analysis, management, treatment, and documentation to vent the very possible risk of cardio pulmonary decompensation or Discharge Plan Plan Patient Disposition: HOME (Self Care) Prescriptions/Referrals Prescriptions/Med Rec: New doxycycline monohydrate 100 mg capsule 100 mg PO BID Qty: 10 0RF oseltamivir [Tamiflu] 75 mg capsule 75 mg PO Q12H 5 Days Qty: 10 0RF prednisone 50 mg tablet 50 mg PO QDAY 5 Days Qty: 5 0RF No Action albuterol sulfate [ProAir HFA] 90 mcg/actuation Hfa Aerosol Inhaler 2 puff INHALATION Q6H PRN (Reason: Wheezing) atorvastatin 80 mg Tablet 80 mg PO QDAY bumetanide 1 mg Tablet 1 mg PO BID empagliflozin 10 mg Tablet 10 mg PO QDAY sacubitril-valsartan 24-26 mg Tablet 1 tab PO BID Hold Instructions: Resume on 06/01/24. Restart after seeing your PCP or Dr. Horta, depending on your BP. aspirin 81 mg Capsule 81 mg PO QDAY nicotine [Nicoderm CQ] 14 mg/24 hr Patch 24 Hour See Rx Instructions .ROUTE .COMPLEX Rx Instructions: for smoking cessation carvedilol 3.125 mg Tablet 3.125 mg PO BID 30 Days Qty: 60 0RF Referrals: No Primary/Family,Physician [Primary Care Provider] - In 1 week Problem List Clinical Impression: Acute exacerbation of chronic obstructive airways disease, CHF (congestive heart failure), Bronchitis Patient/Caregiver Discharge Instructions Education Materials: ED Bronchitis with Wheezing (Adult), ED COPD Flare Additional Instructions: Stop smoking cigarettes. Increase your home oxygen to 3 L for the next 3 days. Use your inhaler 1 puff every 6 hours while awake for the next 3 days. Steroids and antibiotics tablets have been sent to the pharmacy, please pharmacy picking technician tomorrow morning and take as prescribed. Follow-up with your primary care doctor in 2 to 3 days for recheck. You can return to your nearest emergency department symptoms worsen or if you notice any new, concerning issues. Print Language: Bengali Stand Alone Forms: [facility] Award Info., Patient Portal Info Letter
== END 2024-06-22 17:03 | disposition home or self-care (01) ==
PROVIDERS: Nurse Practitioner Primary Care; Emergency Provider Emergency Medicine
DX: J44.1 Chronic obstructive pulmonary disease with (acute) exacerbation (principal); J44.0 Chronic obstructive pulmonary disease with (acute) lower respiratory infection; J20.9 Acute bronchitis, unspecified; I11.0 Hypertensive heart disease with heart failure; I50.9 Heart failure, unspecified; R94.31 Abnormal electrocardiogram [ECG] [EKG]; Z95.0 Presence of cardiac pacemaker; Z99.81 Dependence on supplemental oxygen
CPT/HCPCS: 36415; 71045; 80053; 80307; 83735; 83880; 84484; 85025; 85610; 85730; 93005; 94640; 96374; 96375; 99291; J1940; J7512

== ENCOUNTER 2024-07-07 09:29 | Inpatient (IN) | payer OTHER, SELFPAY ==
[2024-07-07] VITALS (16 sets, daily range): BP systolic 92–114; BP diastolic 63–77; PULSE 54–91; RESP 13–92; TEMP 36.2–36.8; O2SAT 92–100; BMI 30.9
--- NOTE | 2024-07-07 10:09 | EKG_ITS ---
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) [place] Order Number: [id number] Reading MD: Cherlele Mahoney ([facility]) [place] Measurements Intervals Boss Rate: 60 P: 61 WY: 135 QRS: 227 QRSD: 235 T: 58 QT: 538 QTc: 538 Interpretive Statements ELECTRONIC ATRIAL PACEMAKER ELECTRONIC VENTRICULAR PACEMAKER ABNORMAL RHYTHM ECG Compared to ECG 06/22/2024 10:39:10 No significant changes /store/S0/[id number].pdf
--- NOTE | 2024-07-07 10:09 | XR_ITS ---
Examination: AP chest single view Technique one AP portable upright chest single view Exam date and time: July 07, 2024 1043 hours Comparison March 23, 2024 INDICATIONS: Onset chest pain today. FINDINGS: Early heart failure Mild enlargement cardiac contour Prominent vascular congestion including central vascular engorgement Early septal edema at the lung bases Stable position cardiac leads IMPRESSION: Early heart failure
--- NOTE | 2024-07-07 10:09 | PD.EDRME ---
Rapid Medical Screening Exam RME Arrival date/time: 07/07/24 09:29 This is a 74-year-old male presents to the emergency department with complaints of shortness of breath chest pain. I have greeted and performed a focused initial assessment of this patient. Initial appropriate labs ordered at this time. A comprehensive ED assessment and evaluation of the patient and analysis of all test and completion of medical decision making process will be conducted by additional ED provider. Chief Complaint: Shortness of Breath/Dyspnea Time Seen by Provider: 07/07/24 10:02 Vital signs: Vital Signs Pulse Rate 65 07/07/24 09:34 Respiratory Rate 22 H 07/07/24 09:34 Pulse Oximetry (%) 93 L 07/07/24 09:34 Oxygen Delivery Method Room Air 07/07/24 09:34
[2024-07-07 10:34] LABS: Basophils # (Auto) 0.1 Thou/mm3 (0.0-0.2); Basophils % (Auto) 1 % (0-2.5); Eosinophils # (Auto) 0.6 Thou/mm3 (0.0-0.5); Eosinophils % (Auto) 6 % (0-10); Hematocrit 41.5 % (41.0-53.0); Hemoglobin 12.8 g/dL (13.5-16.0); Immature Granulocytes % (Auto) 0 % (0-0); Immature Granulocytes Auto 0.03 Thou/mm3 (0.00-0.00); Lymphocytes # (Auto) 1.2 Thou/mm3 (1.0-4.8); Lymphocytes % (Auto) 12 % (10-50); Mean Corpuscular HGB Conc 30.8 g/dl (31.0-37.0); Mean Corpuscular Hemoglobin 30.3 pg (25.0-35.0); Mean Corpuscular Volume 98 fL (80-100); Monocytes # (Auto) 0.8 Thou/mm3 (0.0-0.8); Monocytes % (Auto) 9 % (0-12); Neutrophils % (Auto) 73 % (37-80); Nucleated Red Blood Cell % 0 /100 WBC (0); Platelet Count 132 Thou/mm3 (140-440); Red Blood Count 4.23 Miln/mm3 (4.50-5.90); White Blood Count 9.6 Thou/mm3 (3.8-10.6)
[2024-07-07 10:52] LABS: INR 1.3 (0.9-1.3); Partial Thromboplastin Time 30.9 Seconds (22.0-36.0); Prothrombin Time 13.7 Seconds (9.0-12.2)
--- NOTE | 2024-07-07 10:58 | EDNOTE_ITS ---
ED SOB =RME/HPI General Chief Complaint: Shortness of Breath/Dyspnea Stated Complaint: SOB Time Seen by Provider: 07/07/24 10:02 Arrival date/time: 07/07/24 09:29 RME / HPI RME / HPI Narrative: 07/07/24 09:29 This is a 74-year-old male presents to the emergency department with complaints of shortness of breath chest pain. I have greeted and performed a focused initial assessment of this patient. Initial appropriate labs ordered at this time. A comprehensive ED assessment and evaluation of the patient and analysis of all test and completion of medical decision making process will be conducted by additional ED provider. DR. ESQUIVEL MAIN ED EVALUATION 74 year old male with history of CVA, cardiomyopathy, HFrEF 10-15% 04/2024, on 2L nasal cannula, hypertension presents to the ED for complaint of shortness of breath beginning 4 days ago. Accompanied by a cough producing yellow phlegm. Denies fevers, chest pain, nausea, vomiting, diarrhea, abdominal pain, or urinary symptoms. No known modifying factors at home. Patient mentioned he quit smoking 4 days ago. Related Data Home Medications ?Medication ?Instructions ?Recorded ?Confirmed albuterol sulfate 90 mcg/actuation 2 puff inhalation Q6H PRN Wheezing 10/09/18 05/28/24 aerosol inhaler (ProAir HFA) aspirin 81 mg capsule 81 mg PO QDAY 04/25/24 05/28/24 atorvastatin 80 mg tablet 80 mg PO QDAY 04/25/24 05/28/24 bumetanide 1 mg tablet 1 mg PO BID 04/25/24 05/28/24 empagliflozin 10 mg tablet 10 mg PO QDAY 04/25/24 05/28/24 sacubitril 24 mg-valsartan 26 mg 1 tab PO BID 04/25/24 05/28/24 tablet nicotine 14 mg/24 hr daily See Rx Instructions .Route .COMPLEX 05/28/24 05/28/24 transdermal patch (Nicoderm CQ) Previous Rx's ?Medication ?Instructions ?Recorded doxycycline monohydrate 100 mg 100 mg PO BID #10 caps 06/22/24 capsule Allergies Allergy/AdvReac Type Severity Reaction Status Date / Time No Known Drug Allergies Allergy Unknown Verified 07/07/24 11:17 Review of Systems Review of Systems Narrative Review of Systems: GEN: No fever, no chills, no weight loss EYES: No discharge, no visual changes, no pain HEENT: No ear pain, no congestion, no sore throat PULM: + shortness of breath, +cough CV: No chest pain, no palpitations GI: No nausea, no vomiting, no diarrhea, no pain, no constipation : No frequency, no urgency and no dysuria MUSC/SKEL No joint pain, no back pain SKIN: No rash NEURO: No weakness, no headache Past Medical History Past Medical History NEUROLOGIC: Positive Cerebrovascular Accident CARDIAC: Positive Cardiac Disorders, Angina, Coronary Artery Disease, Congestive Heart Failure, Edema and Hypertension RESPIRATORY: Positive Asthma and Bronchitis MUSCULOSKELETAL: Positive Musculoskeletal Disorders PSYCHO/SOCIAL: Positive Recreational Drug Use Family History FAMILY HISTORY: Positive Family Cardiac Disorders Social History SMOKING STATUS: Current some day smoker SUBSTANCE USE: former substance user, amphetamines and methamphetamine ED Exam Narrative Physical exam: GENERAL APPEARANCE: Well hydrated, well nourished, in no acute distress. VITALS: All vitals were reviewed and the pulse ox is 93% on room air which is low. HEENT: Normocephalic, atramatic, EOMI, EACs are patent. There is no bulge or retraction. Throat without erythema or exudate. Moist oromucosa. No jaundice NECK: Supple, no JVD or bruits. CARDIOVASCULAR: Heart regular without S3-S4 or murmur. No rubs or gallops. LUNGS/CHEST: Wheezing and rhonchi bilaterally. No rales. ABDOMEN: Soft, nontender, with normal bowel sounds. No pulsatile masses. No rebound, rigidity, or guarding. No incarcerated hernia. Normal inspection and palpation. EXTREMITIES: Normal inspection and palpation. No edema, clubbing, or cyanosis. Intact CSM SKIN: Warm and dry without rashes. Normal inspection. MUSCULOSKELETAL: Normal inspection. No gross deformity, full ROM all extremities NEURO: Alert and oriented x3. Cranial nerves II through XII grossly intact. There are no other motor or sensory deficits noted. PSYCHIATRIC: Normal mood and affect. No psychosis. Course Course Course Narrative: chest xray ordered to help determine etiology of shortness of breath. Quality Measures none Orders Category Date Time Status Process Engineering Intern STAT Care 07/07/24 10:09 Active Continuous Pulse Oximetry ONCE Care 07/07/24 10:09 Completed EKG (ED ONLY) *Do not use* NOW Care 07/07/24 10:09 Completed Insert IV STAT Care 07/07/24 10:09 Active EKG (ED Only) Stat Exams 07/07/24 10:09 Draft XR chest 1V portable Stat Exams 07/07/24 10:09 Completed B-Type Natriuretic Peptide Stat Lab 07/07/24 10:22 Completed CBC Stat Lab 07/07/24 10:22 Completed Comprehensive Metabolic Panel Stat Lab 07/07/24 10:22 Completed Lipase Stat Lab 07/07/24 10:22 Completed Magnesium Stat Lab 07/07/24 10:22 Completed Partial Thromboplastin Time Stat Lab 07/07/24 10:22 Completed Prothrombin Time with INR Stat Lab 07/07/24 10:22 Completed Troponin I Stat Lab 07/07/24 10:22 Completed ALBUTEROL RT 0.5ml [Proventil Rt 0.5ml] Med 07/07/24 11:05 Discontinued 10 mg HHN X1 ONE Bumetanide Inj [Bumex Inj] Med 07/07/24 11:05 Discontinued 1 mg IVP X1 ONE MethylPREDNISolone.* [SoluMEDROL Inj] Med 07/07/24 11:06 Discontinued 125 mg IVP X1 ONE Sodium Chloride Rt Kayleigh 0.9% [NS Rt Kayleigh 0.9%] Med 07/07/24 11:05 Active 3 ml INH PRN PRN BiPAP / CPAP NOW RT 07/07/24 11:05 Active Oxygen Delivery NOW RT 07/07/24 10:09 Active Vital Signs Vital signs: Vital Signs Pulse Rate 65 07/07/24 09:34 Respiratory Rate 22 H 07/07/24 09:34 Pulse Oximetry (%) 93 L 07/07/24 09:34 Oxygen Delivery Method Room Air 07/07/24 09:34 Shortness of Breath / Dyspnea MDM Narrative MDM Narrative:: Meera Farooq am scribing for and in the presence of Dr. Esquivel. On exam the patient lungs she is wheezing and rhonchitic. Nebulizer treatment being given. And BiPAP is being given. Solu-Medrol also given. Bumex is also given. Chest x-ray interpreted by me: Enlarged heart. Pacemaker. Evidence of mild CHF. No infiltrate. Normal mediastinum. Normal bones. Twelve-lead EKG that was done at 10:17 AM and interpreted by me: Pacemaker rhythm. Heart rate of 60. No ST elevation or depression. No PVC. No STEMI. Regular rate and rhythm. CBC unremarkable. CMP showing a creatinine of 1.8 consistent with chronic renal insufficiency. Lipase negative. Troponin negative. BNP is more than 3000 consistent with CHF. Magnesium is 2.7. 11:50 AM, I spoke to and discussed with Dr. Dell Madrigal, resident on-call. She accepted to admit the patient for further evaluation and treatment. Thank you very much Critical care time is approximately 35 minutes excluding any procedure. The high probability of sudden, clinically significant deterioration in the patient?s condition required the highest level of my preparedness to intervene urgently. The services I provided to this patient were to treat and/or prevent clinically significant deterioration. Services included the following: chart data review, reviewing nursing notes and/or old charts, documentation time, senior compensation consultant collaboration regarding findings and treatment options, medication orders and management, direct patient care, vital sign assessments and ordering, interpreting and reviewing diagnostic studies and lab tests. Aggregate critical care time includes only time during which I was engaged in work directly related to the patient?s care, as described above, whether at bedside or elsewhere in the Emergency Department. It did not include time spent performing other reported procedures or the services of residents, students, nurses or physician assistants. Patient data External records reviewed:: [facility] previous records (I reviewed ED visit on 06/22/2024) Clinical information provided by:: patient Social determinants that could affect healthcare access:: other (specify) (Tobacco smoker) Patient has the following chronic illnesses:: CVA, cardiomyopathy, HFrEF 10-15% 04/2024, on 2L nasal cannula, hypertension How is presenting disease/condition affected by chronic disease/condition?: exacerbated by Evaluation data The following diagnostics were reviewed and interpreted by me:: lab results, radiology exam(s) and EKG tracing(s) Lab and/or radiology exams considered but not ordered:: None Interpretation Summary: Ordering Physician: Cherelle Mahoney Date of Service: 07/07/24 Procedure(s): XR chest 1V portable Accession Number(s): [id number] cc: Andrew Eddy MD; Cherelle Mahoney~ Examination: AP chest single view Technique one AP portable upright chest single view Exam date and time: July 07, 2024 1043 hours Comparison March 23, 2024 INDICATIONS: Onset chest pain today. FINDINGS: Early heart failure Mild enlargement cardiac contour Prominent vascular congestion including central vascular engorgement Early septal edema at the lung bases Stable position cardiac leads IMPRESSION: Early heart failure Dictated By: Andrew Eddy MD Signed By: <Electronically signed by Andrew dEdy MD in OV> 07/07/24 1039 Medications / Prescriptions Medications or Prescriptions considered but not ordered:: None Medication administrations:: Medication Administration History Sodium Chloride (Sodium Chloride Rt Kayleigh 0.9% 3 Ml Nebu) 3 ml INH PRN PRN PRN Reason: SOLN Stop: 08/06/24 11:04 Last Admin: 07/07/24 11:34 Dose: 3 ml Documented By: LO Discontinued Medications Albuterol (Albuterol Rt 2.5 Mg/0.5 Ml Nebu) 10 mg HHN X1 ONE Stop: 07/07/24 11:06 Last Admin: 07/07/24 11:34 Dose: 10 mg Documented By: LO Bumetanide (Bumetanide Inj 0.25 Mg/Ml Vial 4 Ml) 1 mg IVP X1 ONE Stop: 07/07/24 11:06 Last Admin: 07/07/24 11:24 Dose: 1 mg Documented By: AM Methylprednisolone Sodium Succinate (Methylprednisolone Sod Succ 62.5 Mg/Ml 2ml Vial) 125 mg IVP X1 ONE Stop: 07/07/24 11:07 Last Admin: 07/07/24 11:24 Dose: 125 mg Documented By: AM See above Consultations Consultation(s) initiated? (list below): Yes Consultation #1 (Physician, Specialty, Details): I spoke with hospitalist team regarding admission as noted above. Diagnosis Shortness of Breath Differential Diagnosis: acute exacerbation of chronic obstructive airways disease, congestive heart failure, community acquired pneumonia and other (Viral illness) Most likely diagnosis given after review of the tests above:: CHF Acute exacerbation of COPD Admission Indicated Admission indicated?: indicated Admission Request Was there a request for admission?: Yes Admission Attestation Admission request attestation: Discussed case with [] from Hospitalist service regarding admission. Discussed patients ED course, exam findings, labs, and radiology results. The Hospitalist [agrees,declines] to accept the patient for admission. Disposition Plan Disposition Plan: Admit Discharge Plan Plan Patient Disposition: Admit Acute Care w/in Hospital Disposition Comment: Stable for admit Prescriptions/Referrals Prescriptions/Med Rec: No Action albuterol sulfate [ProAir HFA] 90 mcg/actuation Hfa Aerosol Inhaler 2 puff INHALATION Q6H PRN (Reason: Wheezing) atorvastatin 80 mg Tablet 80 mg PO QDAY bumetanide 1 mg Tablet 1 mg PO BID empagliflozin 10 mg Tablet 10 mg PO QDAY sacubitril-valsartan 24-26 mg Tablet 1 tab PO BID Hold Instructions: Resume on 06/01/24. Restart after seeing your PCP or Dr. Horta, depending on your BP. aspirin 81 mg Capsule 81 mg PO QDAY nicotine [Nicoderm CQ] 14 mg/24 hr Patch 24 Hour See Rx Instructions .ROUTE .COMPLEX Rx Instructions: for smoking cessation doxycycline monohydrate 100 mg capsule 100 mg PO BID Qty: 10 0RF Referrals: No Primary/Family,Physician [Primary Care Provider] - In 1 week Problem List Clinical Impression: CHF (congestive heart failure), Acute exacerbation of chronic obstructive airways disease Patient/Caregiver Discharge Instructions Print Language: Amharic Stand Alone Forms: [facility] Info., Patient Portal Info Letter
[2024-07-07 11:01] LABS: Alanine Aminotransferase 22 U/L (10-49); Albumin, Serum 4.3 gm/dL (3.4-4.8); Albumin/Globulin Ratio 1.7 (1.2-2.2); Alkaline Phosphatase 97 U/L (46-116); Anion Gap 7 (7-16); Aspartate Amino Transferase 27 U/L (0-34); BUN/Creatinine Ratio 22 Ratio (12-20); Bilirubin,Total 0.8 mg/dL (0.3-1.2); Blood Urea Nitrogen 39 mg/dL (9-23); Calcium 8.9 mg/dL (8.3-10.6); Calcium (Corrected) 8.9 mg/dL (8.5-10.1); Carbon Dioxide 30.6 mMol/L (20.0-31.0); Chloride 102 mMol/L (98-107); Creatinine (Component) 1.8 mg/dL (0.6-1.3); Estimated Creatinine Clearance 40.9 mL/min (>60); Globulin 2.6 gm/dL (2.3-3.5); Glucose 102 mg/dL (74-106); Lipase 33 U/L (12-53); Magnesium 2.7 mg/dL (1.6-2.6); Osmolality,Calculated 288 (275-295); Potassium 3.5 mMol/L (3.4-5.1); Sodium 140 mMol/L (136-145); Total Protein 6.9 gm/dL (5.7-8.2); Troponin I 0.031 ng/mL (0.0-0.045); eGFR 39 See Note
[2024-07-07 11:08] LABS: B-Type Natriuretic Peptide > 3280 pg/mL (0-100)
--- NOTE | 2024-07-07 11:18 | PC.NURSE ---
Pt placed on bipap now
[2024-07-07] MEDS: BUMETANIDE INJ 0.25 MG/ML VIAL 4 ML 1 MG IVP (11:24)
[2024-07-07] MEDS: MethylPREDNISolone SOD SUCC 62.5 MG/ML 2ML VIAL 125 MG IVP (11:24)
[2024-07-07] MEDS: SODIUM CHLORIDE RT SOL 0.9% 3 ML NEBU INH (11:34)
[2024-07-07] MEDS: ALBUTEROL RT 2.5 MG/0.5 ML NEBU 10 MG HHN (11:34)
--- NOTE | 2024-07-07 13:48 | PD.RESHP ---
Documentation for date of: 07/07/24 [facility] History of Present Illness History of present illness: CC: Shortness of Breath Patient is a 74 year old male with a past medical history of CHF Systolic Dysfunciton EF 10-15% (04/25/2024) RSVP 50 mmHg, HTN, HLD, CKD, Chronic Obstuctive Pulmonary Disease-smoking 1 pack of day for greater than 20 years, obstructive sleep apnea, CVA, history of methamphetamine use who was admitted for acute CHF exacerbation and possible COPD exacerbation. Enoc presented to the emergency room with a chief complain of dyspnea who was who uses home oxygen at home during sleep and when he feels short of breath. Patient stated he has had a cronchi cough that began 4 days ago, which is product appearing yellow and transparent. Pateint's grandchild was sick with an upper respiratory infection. Patient has continued smoking about 1 pack per day and stopped about 4 days ago when symptoms worsened. Patient is unsure if he has orthopnea or NPO as he sleeps with oxygen on board, likely given history of CHF. Enoc denied chest pain. Patient denied fever or chills. Unsure he has ever been diagnosed with COPD but per cardiology note in 2020-noted to have Chronic Obstructive Pulmonary Disease. Past Surgical History: Back Surgery Colonoscopy (07/10/2024): Diverticulosis and Hemorrhoids Home Medication: Aspirin 81 mg Metoprolol 25 mg Qday Entrestro Atorvastatin Bumex 1 mg Qday Empagliflozin Sitagliptin Social History: Smoker >20+ with history of smoking 1 pack per day history of substance use disorder Allergies: None Code Status: Full Code Review of Systems Review of Systems Narrative Review of Systems: General appearance: NO weight change, NO fatigue, NO weakness, NO fever, NO chills, NO night sweats, Yes cough-increasing cough Skin: NO rash, NO itching, NO sores, NO moles HEENT: NO Trauma, NO nausea, NO vomiting, NO visual changes, NO blurry vision, NO double vision, NO tinnitus, NO vertigo, NO ear discharge, NO rhinorrhea, NO stuffiness, NO sneezing, NO allergy, NO epistaxis. NO Hoarseness, NO sore throat, NO swollen neck. Cardiac: NO Palpitations, YES dyspnea on exertion, YES orthopnea, NO paroxysmal nocturnal dyspnea-does use oxygen at night-thus possible PND, Yes edema Respiratory: NO Shortness of Breath, NO Wheezing, YES Cough, YES Sputum, NO hemoptysis GI:NO appetite, NO nausea, NO vomiting, NO dysphagia, NO changes in bowel frequency, NO stool color, NO diarrhea, NO constipation, NO hemetemesis, NO hemorrhoids, NO melena, NO hematechezia, NO abdominal pain, NO jaundice Renal: NO frequency, NO hesitancy, NO urgency, NO hematuria, NO nocturia, NO incontinence MSK: NO muscle weakness, NO gout, NO arthritis, NO muscle stiffness Neuro: NO headaches, NO tremors, NO weakness, NO paralysis, NO seizures, NO loss of consciousness, NO numbness. Hem: NO anemia, NO easy bruising/bleeding, NO petechiae, NO purpura Endo: NO heat/cold intolerance, NO excessive sweating, NO polyuria, NO polydipsia, NO polyphagia, NO thyroid problems, NO diabetes Pysch: NO mood, NO anxiety, NO depression Exam Vital Signs Temp Pulse Resp BP Pulse Ox O2 Del Method FiO2 97.6 F 61 23 H 92/72 100 Room Air 40 07/07/24 12:30 07/07/24 12:30 07/07/24 12:30 07/07/24 12:30 07/07/24 12:30 07/07/24 12:30 07/07/24 11:35 Narrative Exam General Appearance: Alert & Oriented X3, well-nourished male who is lying in bed in mild discomfort with increased work of breathing HEENT: Skull symmetrical and atraumatic. Conjunctivae pink and moist. Pupils equal, round, reactive to light and accommodation (PERRL). External ear without lesion or discharge. Straight, nares patient, mucosa pink, no discharge. Cardio: Normal Rate and Rhythm with S1 and S2 heart sounds. No murmurs difficult to appreciate given body habits. No bruits on carotid. 2 peripheral edema. No JVD appreciated. Lungs: Symmetric with good expansion. Chest and back non-tender. Breath sounds vesicular without crackles, wheezing or rhonchi Abdomen: Non-tender, Non-distended, Normal Reactive Bowel Sounds Neuro: Alert, cooperative, oriented to person, place, and time. Speech clear. CN grossly intact. Upper motor strength 5/5 and Lower motor strength 5/5. Sensation intact. Results: Labs 07/08/24 04:55 07/08/24 04:55 Labs: Short CBC 07/07/24 Range/Units 10:22 WBC 9.6 (3.8-10.6) Thou/mm3 Hgb 12.8 L (13.5-16.0) g/dL Hct 41.5 (41.0-53.0) % Plt Count 132 L (140-440) Thou/mm3 BMP 07/07/24 10:22 Sodium 140 Potassium 3.5 Chloride 102 Carbon Dioxide 30.6 BUN 39 H Creatinine 1.8 H Glucose 102 Calcium 8.9 Cardiac Enzymes 07/07/24 Range/Units 10:22 Troponin I 0.031 (0.0-0.045) ng/mL Liver Function 07/07/24 Range/Units 10:22 Total Bilirubin 0.8 (0.3-1.2) mg/dL AST 27 (0-34) U/L ALT 22 (10-49) U/L Alkaline Phosphatase 97 (46-116) U/L Albumin 4.3 (3.4-4.8) gm/dL Quality Measures Quality Measures none Advance care planning discussed with:: patient and child Medications Home Medications and Allergies Home Medications ?Medication ?Instructions ?Recorded ?Confirmed ?Type albuterol sulfate 90 mcg/actuation 2 puff inhalation Q6H PRN Wheezing 10/09/18 07/07/24 History aerosol inhaler (ProAir HFA) aspirin 81 mg capsule 81 mg PO QDAY 04/25/24 07/07/24 History atorvastatin 80 mg tablet 40 mg PO HS 04/25/24 07/07/24 History bumetanide 1 mg tablet 3 mg PO BID 04/25/24 07/07/24 History empagliflozin 10 mg tablet 10 mg PO QDAY 04/25/24 07/07/24 History sacubitril 24 mg-valsartan 26 mg 0.5 tab PO BID 04/25/24 07/07/24 History tablet metoprolol succinate 25 mg 12.5 mg PO DAILY 07/07/24 07/07/24 History tablet,extended release 24 hr sitagliptin 25 mg tablet 25 mg PO DAILY 07/07/24 07/07/24 History Allergies Allergy/AdvReac Type Severity Reaction Status Date / Time No Known Drug Allergies Allergy Unknown Verified 07/07/24 11:17 Visit Medications Acetaminophen (Acetaminophen 325 Mg Tablet) 650 mg PO Q6H PRN PRN Reason: Mild Pain 1-3 or Fever >100.4 Stop: 08/06/24 12:44 Albuterol/Ipratropium (Albuterol/Ipratropium (Duoneb) Rt Kayleigh 3 Ml Nebu) 3 ml INH Q4HRRT PRN PRN Reason: shortness Stop: 08/06/24 14:59 Aspirin (Aspirin Ec 81 Mg Tabec) 81 mg PO QDAY [facility] Stop: 08/06/24 13:14 Atorvastatin Calcium (Atorvastatin Calcium 20 Mg Tablet) 80 mg PO HS [facility] Stop: 08/06/24 20:59 Bumetanide (Bumetanide 0.5 Mg Tablet) 2 mg PO QDAY [facility] Stop: 08/06/24 13:29 Dextrose (Dextrose 50%-Water Inj 50 Ml Syringe) 25 ml IV Q15MIN PRN PRN Reason: BG 50-70 responsive npo pt Stop: 08/06/24 12:48 Dextrose (Dextrose 50%-Water Inj 50 Ml Syringe) 50 ml IV Q15MIN PRN PRN Reason: BG <50 OR BG <70 & pt unresponsive Stop: 08/06/24 12:48 Glucagon (Glucagon Inj 1 Mg Vial) 1 mg IM Q15MIN PRN PRN Reason: BG <70, and no IV access Heparin Sodium (Porcine) (Heparin Sod Inj 5000 Unit/Ml Vial) 5,000 unit SC Q12HR [facility] Stop: 07/21/24 20:59 Insulin Human Lispro (Insulin Lispro (Admelog) 1 Unit/0.01 Ml Unit) 0 unit SC [facility]; Protocol Stop: 08/06/24 16:59 Nicotine (Nicotine Patch 7 Mg/24 Hr Patch.Td24) 7 mg TOP QDAY [facility] Stop: 08/06/24 12:59 Sodium Chloride (Sodium Chloride Rt Kayleigh 0.9% 3 Ml Nebu) 3 ml INH PRN PRN PRN Reason: SOLN Stop: 08/06/24 11:04 Last Admin: 07/07/24 11:34 Dose: 3 ml Discontinued Medications Albuterol (Albuterol Rt 2.5 Mg/0.5 Ml Nebu) 10 mg HHN X1 ONE Stop: 07/07/24 11:06 Last Admin: 07/07/24 11:34 Dose: 10 mg Albuterol/Ipratropium (Albuterol/Ipratropium (Duoneb) Rt Kayleigh 3 Ml Nebu) 3 ml INH Q4HRRT [facility] Stop: 08/06/24 14:59 Bumetanide (Bumetanide Inj 0.25 Mg/Ml Vial 4 Ml) 1 mg IVP X1 ONE Stop: 07/07/24 11:06 Last Admin: 07/07/24 11:24 Dose: 1 mg Azithromycin 500 mg/ Sodium (Chloride) 250 mls @ 250 mls/hr IV QDAY [facility] Stop: 07/14/24 12:48 Furosemide 200 mg/ Sodium (Chloride) 100 mls @ 5 mls/hr IV .Q20H [facility] Stop: 08/06/24 13:29 Methylprednisolone Sodium Succinate (Methylprednisolone Sod Succ 62.5 Mg/Ml 2ml Vial) 125 mg IVP X1 ONE Stop: 07/07/24 11:07 Last Admin: 07/07/24 11:24 Dose: 125 mg Assessment & Plan Plan Patient is a 74 year old male with a past medical history of CHF Systolic Dysfunciton EF 10-15% (04/25/2024) RSVP 50 mmHg, HTN, HLD, CKD, Chronic Obstuctive Pulmonary Disease-smoking 1 pack of day for greater than 20 years, obstructive sleep apnea, CVA, history of methamphetamine use who was admitted for acute CHF exacerbation. #Acute hypoxic respiratory failure, placed on Bipap #Congestive Heart Failure Systolic Dysfunction EF 10-15% #RSVP 50 mmHg #Obstructive Sleep Apnea Etiology: CHF exacerbation can not be ruled out given poor systolic dysfunction with a severely reduce EF. Lower pedal edema noted. Pulmonary vascular congestion on Cxr. Elevated BNP which could be falsely high given BMI and entresto use. CHF exacerbation likely triggered by viral infection DDx: COPD can not be ruled out given history of chronic smoker with albuterol use at home and clinically appearing as a chronic bronchitis patient. Breathing treatments add, consider Azithromycin vs CA less likey given within range troponins. TSH (07/07/2024): 1.16 Lipid (04/26/2024): Triglycerides 46, Cholesterol 90, LDL 44, HDL 37 NYHA Class: IV Well's Criteria 0 Plan: -Bumex 1 mg PO Qday -Duonebs Q4HR Scheduled -Add Cpap at night, call respiratory AM -Covid, influenza, and blood cultures pending -K>4 and Mg >2 -Fluid Restriction and Sodium Restriction 2 g per day -SpO <90%, support PRN -Daily Weights, Strict Ins and Outs, Fluid Striation (1500), Sodium Restriction 2 grams per day -Cardiology Consult, Dr. Horta, appreciate recommendations. #CKD III #HTN Patient has a past medical history of chronic kidney disease. Previous BUN 52 and CR 2.0 which hovers near patients baseline.No change in Cr >0.3. Less likely TYLOR from pre-renal causes. Intrinsci injury secondary to cardio renal and to diabetes mellitus type II. Diagnostics: -Previous GFR 35 BUN 52 Cr 2.0-->(07/07/2024): BUN 39, Cr 1.8, GFR 39, Crcl 40.9, BUN/Cr 22 Plan: -Holding Metoprolol and Entresto -Renally dose medication -avoid nephrotoxins -follow on Cr #CVA #HLD Patient has a past medical history of stroke with no motor function deficits as reported by daughter at bedside. Continue home medication. ASCVD Risk-31% risk of cardio vascular event in 10 years High intensity statin Plan: Aspirin 81 mg QDay Atorvastatin 80 mg HS #Diabetes Mellitus Type 6-gea-iabpiip Dependent Patient has a past medical history of diabetes mellitus type 2 non-insulin dependent with a previous A1c 5.5 on home medication Empagliflozin and sitagliptin. Plan -Sliding scale Lispro -Follow up with Fasting Morning Glucose -Empagliflozin (SLGT-2) caution in GFR <30, Sitagliptin (DDP 4) caution in GFR <45/Heart failure risk (HOME MEDICATION) #Active Smoker Plan -Nicotine Patch #Polysubstance Use Disorder, Meth Preferred drug of choice, Meth. Last positive urine toxicology-April 2024. Plan -Consider Utox in AM .-No acitve intervention Health Maintenance: Disp: Pt is currently admitted to floors for further management of CHF exacerbation, awaiting clinical improvement FEN: Cardiac, 2 gram Na DVT: on subQ heparin Code: Full Code - The patient's plan was discussed with attending Dr. Diane Orourke MD PGY1 Internal Medicine Attending Provider Attestation/Addendum I reviewed labs, imaging, EKG, home medications and prior available records. Face to face evaluation was performed by me. I have personally examined the patient and discussed assessment and plan with the IM team. I reviewed the resident note and agree with the plan with exceptions as below. Acute hypoxic respiratory failure CHF exacerbation Severe cardiomyopathy EF 10 to 15% status post AICD History of methamphetamine abuse CKD stage IIIb Type 2 diabetes mellitus History of CVA Start the patient on IV diuretics Avoid beta-blockers and calcium channel blockers in the setting of possible cardiogenic shock Monitor I's and O's. Fluid restriction Consult cardiology Monitor kidney function. Avoid nephrotoxins. Renally dosed medications.
[2024-07-07] MEDS: ASPIRIN EC 81 MG TABEC PO (13:49)
[2024-07-07 14:12] LABS: D-Dimer 354 ng/mL (<600)
[2024-07-07] MEDS: BUMETANIDE 0.5 MG TABLET 2 MG PO (14:33)
[2024-07-07] MEDS: NICOTINE PATCH 7 MG/24 HR PATCH.TD24 TOP (14:34)
--- NOTE | 2024-07-07 15:39 | PC.NURSE ---
Pt sleeping in [facility]. No distress. Pt has been on nasal cannula and satting 98% on 4 L nc.
--- NOTE | 2024-07-07 17:25 | ESCONSULT_ITS ---
<Statement entered by Anurag Horta MD - 07/08/24 13:17> I evaluated the patient along with the resident physician in the emergency department patient continues to have shortness of breath underwent DOCUMENTATION CLERK defibrillator implant he recently has mild congestive heart failure symptoms as well and multiple issues I agree with the treatment plan recommendation patient clinically appears to have a lot of bronchospasm more than heart failure could be due to heart failure causing bronchospasm versus bronchitis recommend treating with bronchodilators including inhaled steroids. Agree with the treatment treatment plan recommendation as documented by Dr. 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 Patient recently underwent DOCUMENTATION CLERK-D implantation on 05/31/2024. At bedside, patient's is accompanying him and states that patient has been compliant with his medication but for the last 2 days he has been having increasing shortness of breath with mild exertion and yellow phlegm productive cough. Patient denied fever, chills, palpitations, chest pain/pressure, abdominal pain, dysuria or other associated symptoms. Patient is a 20 pack-year chronic cigarette smoker (quit cigarettes 4 days ago). On last admission patient was discharged on home oxygen, currently using 2 to 3 L. In ED patient was saturating 93% on room air, rest of vitals were significant for BP 94/64 and respiratory rate of 22. Labs were significant for BNP greater than 3280, creatinine of 1.8 (baseline 1.7) and troponin was negative. Chest x-ray reading indicated early heart failure. Cardiology was consulted for further management. Medical Hx: Nonischemic cardiomyopathy, HFrEF (EF 10 to 15%), methamphetamine abuse, DM2, HTN, SEGUNDO, CVA, chronic smoker Medications (need reconciliation): Metoprolol XL 25 Mg, ASA 81 mg, Entresto, Bumex 1 Mg, atorvastatin, empagliflozin, sitagliptin Surgeries: Back surgery Social Hx: More than [id number] cigarette smoking, history of methamphetamine abuse, lives with Allergies: NKDA CODE STATUS full code 07/07/24: Patient examined at bedside, labs and x-ray reviewed. Patient does not seem to be fluid overloaded, he does have bilateral wheezing. Given his history of chronic cigarette smoking, shortness of breath and productive yellow cough, symptoms seem to be asthma/COPD exacerbation. On physical exam patient does not seem to be fluid overloaded. Patient should receive scheduled breathing treatments and continued home medications as tolerated with Bumex 1 mg daily. cc:: cc: Karel Contreras MD Review of Systems Review of Systems Systems Reviewed: All systems reviewed, normal except as documented Exam Vital Signs Temp Pulse Resp BP Pulse Ox O2 Del Method O2 Flow Rate 97.2 F 79 27 H 114/77 96 Nasal Cannula 6 07/07/24 16:29 07/07/24 16:29 07/07/24 16:29 07/07/24 16:29 07/07/24 16:29 07/07/24 16:29 07/07/24 16:29 FiO2 28 07/07/24 13:51 Narrative Exam Constitutional: well-developed, well-nourished, in no acute distress, lying in bed HEENT: NCAT, EOMI, reactive round pupils b/l, patent nares b/l, moist mucous membranes Lung: Vesicular breathing with b/l wheezing, no crackles or rhonchi Heart: Regular S1S2, no murmurs, gallops, or rubs Abdomen: Soft, non-distended, non-tender, bowel sounds present throughout Extremities: No cyanosis, clubbing, + trace edema, LE pulses present b/l Neurologic: No focal sensory or motor deficits noted, AOx3, appropriate affect Skin: Warm, dry, no lesions or rashes noted Results Labs 07/07/24 10:22 07/07/24 10:22 Labs: Short CBC 07/07/24 Range/Units 10:22 WBC 9.6 (3.8-10.6) Thou/mm3 Hgb 12.8 L (13.5-16.0) g/dL Hct 41.5 (41.0-53.0) % Plt Count 132 L (140-440) Thou/mm3 BMP 07/07/24 10:22 Sodium 140 Potassium 3.5 Chloride 102 Carbon Dioxide 30.6 BUN 39 H Creatinine 1.8 H Glucose 102 Calcium 8.9 Cardiac Enzymes 07/07/24 Range/Units 10:22 Troponin I 0.031 (0.0-0.045) ng/mL Liver Function 07/07/24 Range/Units 10:22 Total Bilirubin 0.8 (0.3-1.2) mg/dL AST 27 (0-34) U/L ALT 22 (10-49) U/L Alkaline Phosphatase 97 (46-116) U/L Albumin 4.3 (3.4-4.8) gm/dL Quality Measures Quality Measures none Advance care planning discussed with:: other Medications Home Medications and Allergies Home Medications ?Medication ?Instructions ?Recorded ?Confirmed ?Type albuterol sulfate 90 mcg/actuation 2 puff inhalation Q6H PRN Wheezing 10/09/18 07/07/24 History aerosol inhaler (ProAir HFA) aspirin 81 mg capsule 81 mg PO QDAY 04/25/24 07/07/24 History atorvastatin 80 mg tablet 40 mg PO HS 04/25/24 07/07/24 History bumetanide 1 mg tablet 3 mg PO BID 04/25/24 07/07/24 History empagliflozin 10 mg tablet 10 mg PO QDAY 04/25/24 07/07/24 History sacubitril 24 mg-valsartan 26 mg 0.5 tab PO BID 04/25/24 07/07/24 History tablet metoprolol succinate 25 mg 12.5 mg PO DAILY 07/07/24 07/07/24 History tablet,extended release 24 hr sitagliptin 25 mg tablet 25 mg PO DAILY 07/07/24 07/07/24 History Allergies Allergy/AdvReac Type Severity Reaction Status Date / Time No Known Drug Allergies Allergy Unknown Verified 07/07/24 11:17 Visit Medications Acetaminophen (Acetaminophen 325 Mg Tablet) 650 mg PO Q6H PRN PRN Reason: Mild Pain 1-3 or Fever >100.4 Stop: 08/06/24 12:44 Albuterol/Ipratropium (Albuterol/Ipratropium (Duoneb) Rt Kayleigh 3 Ml Nebu) 3 ml INH Q4HRRT PRN PRN Reason: shortness Stop: 08/06/24 14:59 Aspirin (Aspirin Ec 81 Mg Tabec) 81 mg PO QDAY PINKY Stop: 08/06/24 13:14 Last Admin: 07/07/24 13:49 Dose: 81 mg Atorvastatin Calcium (Atorvastatin Calcium 20 Mg Tablet) 80 mg PO HS [facility] Stop: 08/06/24 20:59 Bumetanide (Bumetanide 0.5 Mg Tablet) 1 mg PO QDAY [facility] Stop: 08/07/24 08:59 Dextrose (Dextrose 50%-Water Inj 50 Ml Syringe) 25 ml IV Q15MIN PRN PRN Reason: BG 50-70 responsive npo pt Stop: 08/06/24 12:48 Dextrose (Dextrose 50%-Water Inj 50 Ml Syringe) 50 ml IV Q15MIN PRN PRN Reason: BG <50 OR BG <70 & pt unresponsive Stop: 08/06/24 12:48 Glucagon (Glucagon Inj 1 Mg Vial) 1 mg IM Q15MIN PRN PRN Reason: BG <70, and no IV access Heparin Sodium (Porcine) (Heparin Sod Inj 5000 Unit/Ml Vial) 5,000 unit SC Q12HR [facility] Stop: 07/21/24 20:59 Insulin Human Lispro (Insulin Lispro (Admelog) 1 Unit/0.01 Ml Unit) 0 unit SC [facility]; Protocol Stop: 08/06/24 16:59 Nicotine (Nicotine Patch 7 Mg/24 Hr Patch.Td24) 7 mg TOP QDAY [facility] Stop: 08/06/24 12:59 Last Admin: 07/07/24 14:34 Dose: 7 mg Sodium Chloride (Sodium Chloride Rt Kayleigh 0.9% 3 Ml Nebu) 3 ml INH PRN PRN PRN Reason: SOLN Stop: 08/06/24 11:04 Last Admin: 07/07/24 11:34 Dose: 3 ml Discontinued Medications Albuterol (Albuterol Rt 2.5 Mg/0.5 Ml Nebu) 10 mg HHN X1 ONE Stop: 07/07/24 11:06 Last Admin: 07/07/24 11:34 Dose: 10 mg Albuterol/Ipratropium (Albuterol/Ipratropium (Duoneb) Rt Kayleigh 3 Ml Nebu) 3 ml INH Q4HRRT [facility] Stop: 08/06/24 14:59 Bumetanide (Bumetanide Inj 0.25 Mg/Ml Vial 4 Ml) 1 mg IVP X1 ONE Stop: 07/07/24 11:06 Last Admin: 07/07/24 11:24 Dose: 1 mg Bumetanide (Bumetanide 0.5 Mg Tablet) 2 mg PO QDAY [facility] Stop: 08/06/24 13:29 Last Admin: 07/07/24 14:33 Dose: 2 mg Azithromycin 500 mg/ Sodium (Chloride) 250 mls @ 250 mls/hr IV QDAY PINKY Stop: 07/14/24 12:48 Last Admin: 07/07/24 14:33 Dose: Not Given Furosemide 200 mg/ Sodium (Chloride) 100 mls @ 5 mls/hr IV .Q20H PINKY Stop: 08/06/24 13:29 Methylprednisolone Sodium Succinate (Methylprednisolone Sod Succ 62.5 Mg/Ml 2ml Vial) 125 mg IVP X1 ONE Stop: 07/07/24 11:07 Last Admin: 07/07/24 11:24 Dose: 125 mg Assessment & Plan Plan 74-year-old male patient with significant medical history of 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 Patient recently underwent DOCUMENTATION CLERK-D implantation on 05/31/2024. Patient admitted for AHRF 2/2 to CHF vs COPD exacerbation. 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 Moderate RV dilation. Moderate RV dysfunction. Estimated RVSP 50 mmHg. Severe biatrial dilation. Plan: - Admit to telemetry - Continue home Bumex 1mg Qday - Withhold ESTEFANI/ARBs in setting of TYLOR - GDMT as tolerated by patient - Strict TERRY's - Low sodium diet - Keep Mag > 2 and K > 4 - Fluid restriction - Daily weights - DuoNeb breathing treatments scheduled - Consider Azithromycin #Hyperlipidemia #Hx of CVA Patient with history of non-residual deficit TIA Plan: - Continue ASA and statin #TYLOR #DM2 #Polysubstance abuse -Management per primary team This patient care was discussed with my attending Dr. Mychal Davis MD PGY-2 Disclaimer: Minor errors in chemist organic may be present since this note was dictated by speech recognition software.
[2024-07-07 17:33] LABS: Base Excess 3 (-3-3); HCO3 30 mEq/L (20-26); Inspired O2, VO2 Liters 4 L/min; Inspired Oxygen, FIO2 21 %; O2 Saturation 94 % (91-98); PCO2 54 mmHg (32.0-48.0); PO2 73 mmHg (83-108); pH, Arterial 7.36 (7.35-7.45)
[2024-07-07 17:40] LABS: Allen Test Performed/OK; Puncture Site Right Radial
[2024-07-07] MEDS: INSULIN LISPRO (AdmeLOG) 1 UNIT/0.01 ML UNIT SC ×2 (18:02→21:52)
[2024-07-07] MEDS: ATORVASTATIN CALCIUM 20 MG TABLET 80 MG PO (21:51)
[2024-07-07] MEDS: HEPARIN SOD INJ 5000 UNIT/ML VIAL SC (21:52)
[2024-07-07] MEDS: ALBUTEROL/IPRATROPIUM (Duoneb) RT SOL 3 ML NEBU INH (22:30)
[2024-07-08] VITALS (15 sets, daily range): BP systolic 95–110; BP diastolic 58–73; PULSE 66–93; RESP 15–28; TEMP 36.1–36.7; O2SAT 95–99
[2024-07-08 05:21] LABS: Basophils % (Auto) 0 % (0-2.5); Eosinophils % (Auto) 0 % (0-10); Hematocrit 40.9 % (41.0-53.0); Hemoglobin 12.9 g/dL (13.5-16.0); Immature Granulocytes % (Auto) 0 % (0-0); Immature Granulocytes Auto 0.04 Thou/mm3 (0.00-0.00); Lymphocytes # (Auto) 0.6 Thou/mm3 (1.0-4.8); Lymphocytes % (Auto) 5 % (10-50); Mean Corpuscular HGB Conc 31.5 g/dl (31.0-37.0); Mean Corpuscular Hemoglobin 30.6 pg (25.0-35.0); Mean Corpuscular Volume 97 fL (80-100); Monocytes # (Auto) 0.2 Thou/mm3 (0.0-0.8); Monocytes % (Auto) 2 % (0-12); Neutrophils % (Auto) 92 % (37-80); Nucleated Red Blood Cell % 0 /100 WBC (0); Platelet Count 142 Thou/mm3 (140-440); RDW Standard Deviation 56.6 fL (35.1-43.9); Red Blood Count 4.22 Miln/mm3 (4.50-5.90); White Blood Count 10.9 Thou/mm3 (3.8-10.6)
[2024-07-08 05:53] LABS: Anion Gap 9 (7-16); BUN/Creatinine Ratio 25 Ratio (12-20); Blood Urea Nitrogen 45 mg/dL (9-23); Calcium 8.9 mg/dL (8.3-10.6); Carbon Dioxide 30.3 mMol/L (20.0-31.0); Cardiac Risk Estimate 2.4 RATIO (4.0-6.7); Chloride 104 mMol/L (98-107); Cholesterol 106 mg/dL (132-200); Creatinine (Component) 1.8 mg/dL (0.6-1.3); Estimated Creatinine Clearance 40.7 mL/min (>60); Glucose 146 mg/dL (74-106); HDL Cholesterol 44 mg/dL (40-60); LDL Cholesterol,Calculated 52 mg/dL (0-130); Magnesium 2.7 mg/dL (1.6-2.6); Osmolality,Calculated 299 (275-295); Phosphorous 3.3 mg/dL (2.4-5.1); Sodium 143 mMol/L (136-145); Triglycerides 48 mg/dL (30-150); eGFR 39 See Note
--- NOTE | 2024-07-08 06:07 | PC.NURSE ---
SPOKE W/DR. LANDON REGARDING BIGEMINAL PVC'S. MOST CURRENT BP 96/54.PT ASYMPTOMATIC. CONTINUES TO HAVE FINE CRACKLES, CONGESTED. PT HOME MED INCLUDES METOPROLOL BUT NOT CURRENTLY TAKING IN HOSPITAL, ALSO RELAYED THAT PT IS ON BUMEX 3 MG PO BID AT HOME WHILE HE IS ON 1 MG PO DAILY IN HOSPITAL. STATES THAT SHE WILL SPEAK WITH HAND OFF TEAM AND DECIDE IF OK TO START HOME MEDS.
[2024-07-08] MEDS: INSULIN LISPRO (AdmeLOG) 1 UNIT/0.01 ML UNIT SC ×3 (08:09→20:23)
[2024-07-08] MEDS: ASPIRIN EC 81 MG TABEC PO (08:10)
[2024-07-08] MEDS: BUMETANIDE 0.5 MG TABLET 1 MG PO (08:10)
[2024-07-08] MEDS: NICOTINE PATCH 7 MG/24 HR PATCH.TD24 TOP (08:11)
[2024-07-08] MEDS: HEPARIN SOD INJ 5000 UNIT/ML VIAL SC ×2 (08:20→20:23)
[2024-07-08] MEDS: AZITHROMYCIN 250 MG TABLET 500 MG PO (09:13)
[2024-07-08] MEDS: ALBUTEROL/IPRATROPIUM (Duoneb) RT SOL 3 ML NEBU INH ×4 (10:13→22:52)
[2024-07-08] MEDS: BENZONATATE 100 MG CAPSULE 200 MG PO (10:31)
[2024-07-08 10:42] LABS: Influenza A Ag Negative; Influenza B Ag Negative
[2024-07-08 11:21] LABS: Amphetamine/Methamp Scrn,U Negative (Negative); Barbiturate Screen,Urine Negative (Negative); Benzodiazepines Screen,Urine Negative (Negative); Benzoylecgonine Screen, Ur Negative (Negative); Fentanyl Screen,Urine Negative (Negative); Opiate Screen,Urine Negative (Negative); THC Screen,Urine Negative (Negative)
--- NOTE | 2024-07-08 12:35 | PD.RESPRO ---
Documentation for date of: 07/08/24 Subjective Subjective Interval history: Patient is a 74 year old male with a past medical history of CHF Systolic Dysfunciton EF 10-15% (04/25/2024) RSVP 50 mmHg, HTN, HLD, CKD, Chronic Obstuctive Pulmonary Disease-smoking 1 pack of day for greater than 20 years, obstructive sleep apnea, CVA, history of methamphetamine who was admitted on 07/07/2024 for possible CHF exacerbation. Overnight, PVC reported. Patient examined at beside, denied any chest pain overnight. Patient is off bipap and on N.C with improved work of breathing and improved dyspnea. Denied any fevers overnight. On telemetry box, during morning rounds, it was noted to be reading at HR 40 bpm. Manual pulse taken, reading at 80 bph. Updated nursing staff twice and asked for telemetry boxed to be switched out, likely secondary to leads being faulty. Exam Vital Signs Temp Pulse Resp BP Pulse Ox O2 Del Method O2 Flow Rate 97.0 F 93 22 H 105/73 98 Nasal Cannula 2 07/08/24 08:00 07/08/24 10:14 07/08/24 10:14 07/08/24 08:10 07/08/24 10:14 07/08/24 08:00 07/08/24 10:14 FiO2 28 07/08/24 08:00 Narrative Exam General Appearance: Alert & Oriented X3, well-nourished male who is lying in bed in mild discomfort with increased work of breathing HEENT: Skull symmetrical and atraumatic. Conjunctivae pink and moist. Pupils equal, round, reactive to light and accommodation (PERRL). External ear without lesion or discharge. Straight, nares patient, mucosa pink, no discharge. Cardio: Normal Rate and Rhythm with S1 and S2 heart sounds. No murmurs difficult to appreciate given body habits. No bruits on carotid. 1 peripheral edema. No JVD appreciated. Lungs: Symmetric with good expansion. Chest and back non-tender. Breath sounds vesicular with Wheezing noted. Abdomen: Non-tender, Non-distended, Normal Reactive Bowel Sounds Neuro: Alert, cooperative, oriented to person, place, and time. Speech clear. CN grossly intact. Upper motor strength 5/5 and Lower motor strength 5/5. Sensation intact. Objective Labs 07/09/24 05:04 12/22/24 05:04 Labs: Laboratory Results - last 24 hr 07/07/24 07/07/24 07/08/24 10:22 17:21 04:55 WBC 10.9 H RBC 4.22 L Hgb 12.9 L Hct 40.9 L MCV 97 MCH 30.6 MCHC 31.5 RDW Std Deviation 56.6 H Plt Count 142 Neut % (Auto) 92 H Lymph % (Auto) 5 L Johnson % (Auto) 2 Eos % (Auto) 0 Baso % (Auto) 0 Neut # (Auto) 10.0 H Lymph # (Auto) 0.6 L Johnson # (Auto) 0.2 Eos # (Auto) 0.0 Baso # (Auto) 0.0 Immature Gran # (Auto) 0.04 H Absolute Nucleated RBC 0.00 Immature Gran % 0 Nucleated RBC % 0 D-Dimer 354 Puncture Site Right Radial ABG pH 7.36 ABG pCO2 54 H ABG pO2 73 L ABG HCO3 30 H ABG O2 Saturation 94 ABG Base Excess 3 Oxygen Liter Flow 4 FiO2 21 Sodium 143 Potassium 4.0 D Chloride 104 Carbon Dioxide 30.3 Anion Gap 9 BUN 45 H Creatinine 1.8 H Estim Creat Clear Calc 40.7 L eGFR 39 L BUN/Creatinine Ratio 25 H Glucose 146 H Calculated Osmolality 299 H Calcium 8.9 Phosphorus 3.3 Magnesium 2.7 H Triglycerides 48 Cholesterol 106 L LDL Cholesterol, Calc 52 HDL Cholesterol 44 Cholesterol/HDL Ratio 2.4 L Urine Opiates Screen Urine Fentanyl Screen Ur Barbiturates Screen U Amphetamin/Meth Scrn U Benzodiazepines Scrn U Cocaine Metab Screen U Marijuana (THC) Screen Influenza A (Rapid) Influenza B (Rapid) 07/08/24 07/08/24 08:22 08:34 WBC RBC Hgb Hct MCV MCH MCHC RDW Std Deviation Plt Count Neut % (Auto) Lymph % (Auto) Johnson % (Auto) Eos % (Auto) Baso % (Auto) Neut # (Auto) Lymph # (Auto) Johnson # (Auto) Eos # (Auto) Baso # (Auto) Immature Gran # (Auto) Absolute Nucleated RBC Immature Gran % Nucleated RBC % D-Dimer Puncture Site ABG pH ABG pCO2 ABG pO2 ABG HCO3 ABG O2 Saturation ABG Base Excess Oxygen Liter Flow FiO2 Sodium Potassium Chloride Carbon Dioxide Anion Gap BUN Creatinine Estim Creat Clear Calc eGFR BUN/Creatinine Ratio Glucose Calculated Osmolality Calcium Phosphorus Magnesium Triglycerides Cholesterol LDL Cholesterol, Calc HDL Cholesterol Cholesterol/HDL Ratio Urine Opiates Screen Negative Urine Fentanyl Screen Negative Ur Barbiturates Screen Negative U Amphetamin/Meth Scrn Negative U Benzodiazepines Scrn Negative U Cocaine Metab Screen Negative U Marijuana (THC) Screen Negative Influenza A (Rapid) Negative Influenza B (Rapid) Negative ABG Interpretation ABG results: 07/07/24 17:21 ABG pH 7.36 ABG pCO2 54 H ABG pO2 73 L ABG HCO3 30 H ABG O2 Saturation 94 ABG Base Excess 3 Quality Measures Quality Measures none Advance care planning discussed with:: patient Assessment & Plan Assessment Current Active Medications: Generic Name Dose Route Start Last Admin Trade Name Freq PRN Reason Stop Dose Admin Acetaminophen 650 mg 07/07/24 12:45 Acetaminophen 325 Mg Tablet PO 08/06/24 12:44 Q6H PRN Mild Pain 1-3 or Fever >100.4 Albuterol/Ipratropium 3 ml 07/08/24 11:00 07/08/24 10:13 Albuterol/Ipratropium (Duoneb) Rt Kayleigh 3 Ml Nebu INH 08/07/24 10:59 3 ml Q4HRRT PINKY Administration Aspirin 81 mg 07/07/24 13:15 07/08/24 08:10 Aspirin Ec 81 Mg Tabec PO 08/06/24 13:14 81 mg QDAY PINKY Administration Atorvastatin Calcium 80 mg 07/07/24 21:00 07/07/24 21:51 Atorvastatin Calcium 20 Mg Tablet PO 08/06/24 20:59 80 mg HS PINKY Administration Azithromycin 500 mg 07/08/24 09:00 07/08/24 09:13 Azithromycin 250 Mg Tablet PO 07/15/24 08:59 500 mg QDAY PINKY Administration Benzonatate 200 mg 07/08/24 10:22 07/08/24 10:31 Benzonatate 100 Mg Capsule PO 08/07/24 10:21 200 mg Q8HR PRN Administration COUGH Protocol Bumetanide 1 mg 07/08/24 09:00 07/08/24 08:10 Bumetanide 0.5 Mg Tablet PO 08/07/24 08:59 1 mg QDAY PINKY Administration Dextrose 25 ml 07/07/24 12:49 Dextrose 50%-Water Inj 50 Ml Syringe IV 08/06/24 12:48 Q15MIN PRN BG 50-70 responsive npo pt Dextrose 50 ml 07/07/24 12:49 Dextrose 50%-Water Inj 50 Ml Syringe IV 08/06/24 12:48 Q15MIN PRN BG <50 OR BG <70 & pt unresponsive Glucagon 1 mg 07/07/24 12:49 Glucagon Inj 1 Mg Vial IM Q15MIN PRN BG <70, and no IV access Guaifenesin 600 mg 07/08/24 21:00 Guaifenesin Er 600 Mg Tabcr PO 08/07/24 20:59 BID PINKY Heparin Sodium (Porcine) 5,000 unit 07/07/24 21:00 07/08/24 08:20 Heparin Sod Inj 5000 Unit/Ml Vial SC 07/21/24 20:59 5,000 unit Q12HR PINKY Administration Insulin Human Lispro 0 unit 07/07/24 17:00 07/08/24 11:27 Insulin Lispro (Admelog) 1 Unit/0.01 Ml Unit SC 08/06/24 16:59 1 unit ACHS PINKY Administration Protocol Nicotine 7 mg 07/07/24 13:00 07/08/24 08:11 Nicotine Patch 7 Mg/24 Hr Patch.Td24 TOP 08/06/24 12:59 7 mg QDAY PINKY Administration Sodium Chloride 3 ml 07/07/24 11:05 07/07/24 11:34 Sodium Chloride Rt Kayleigh 0.9% 3 Ml Nebu INH 08/06/24 11:04 3 ml PRN PRN Administration SOLN Plan Patient is a 74 year old male with a past medical history of CHF Systolic Dysfunciton EF 10-15% (04/25/2024) RSVP 50 mmHg, HTN, HLD, CKD, Chronic Obstuctive Pulmonary Disease-smoking 1 pack of day for greater than 20 years, obstructive sleep apnea, CVA, history of methamphetamine use who was admitted for acute CHF exacerbation. #COPD exacerbation Etiology: Likely COPD exacerbation as wheezing was hear on physical exam this morning. Patient has an extensive history of smoking, although x-ray does not have a flatten diaphgram or elongated torso. Patient does pursed lips when blowing off oxygen. Patient clinically appears as a chronic bronchitis patient. Plan -Continue duonebs -Azithromycin (07/08/2024-) -Goal: SpO2 88%-92% #Acute hypoxic respiratory failure, improved #Congestive Heart Failure Systolic Dysfunction EF 10-15% #RSVP 50 mmHg #Obstructive Sleep Apnea Etiology: CHF exacerbation can not be ruled out given poor systolic dysfunction with a severely reduce EF. Lower pedal edema noted. Pulmonary vascular congestion on Cxr. Elevated BNP which could be falsely high given BMI and entresto use. CHF exacerbation likely triggered by viral infection. Denied Carvedilol but previous discharge summary listed as such. Pending medication reconciliation. DDx: COPD can not be ruled out given history of chronic smoker with albuterol use at home and clinically appearing as a chronic bronchitis patient. Breathing treatments add, consider Azithromycin vs ME less likey given within range troponins. TSH (07/07/2024): 1.16 Lipid (04/26/2024): Triglycerides 46, Cholesterol 90, LDL 44, HDL 37 Influenza NEGATIVE and COVID NEGATIVE Weight 05/07/2024 92.136-->07/08/2024 91.172 NYHA Class: IV Well's Criteria 0 Plan: -Bumex 1 mg PO Qday -Metoprolol Succinate 25 PO Daily, if this is too much, go down to 12.5 mg PO Qday as this is listed under instructions -Holding Entresto, considering adding based on cardiology recs. -Duonebs Q4HR Scheduled -Add Cpap at night, call respiratory AM--> patient stated he does not want to use it. -Covid, influenza, and blood cultures pending -K>4 and Mg >2 -Fluid Restriction and Sodium Restriction 2 g per day -SpO <90%, support PRN -Daily Weights, Strict Ins and Outs, Fluid Striation (1500), Sodium Restriction 2 grams per day -Cardiology Consult, Dr. Horta, appreciate recommendations. #CKD III #HTN Patient has a past medical history of chronic kidney disease. Previous BUN 52 and CR 2.0 which hovers near patients baseline.No change in Cr >0.3. Less likely TYLOR from pre-renal causes. Intrinsci injury secondary to cardio renal and to diabetes mellitus type II. Plan: -Holding Entresto -Renally dose medication -avoid nephrotoxins -follow on Cr #CVA #HLD Patient has a past medical history of stroke with no motor function deficits as reported by daughter at bedside. Continue home medication. ASCVD Risk-31% risk of cardio vascular event in 10 years High intensity statin Plan: Aspirin 81 mg QDay Atorvastatin 80 mg HS #Diabetes Mellitus Type 3-[id number] Dependent Patient has a past medical history of diabetes mellitus type 2 non-insulin dependent with a previous A1c 5.5 on home medication Empagliflozin and sitagliptin. Plan -Sliding scale Lispro -Follow up with Fasting Morning Glucose -Empagliflozin (SLGT-2) caution in GFR <30, Sitagliptin (DDP 4) caution in GFR <45/Heart failure risk (HOME MEDICATION) #Active Smoker Plan -Nicotine Patch #Polysubstance Use Disorder, Meth Preferred drug of choice, Meth. Last positive urine toxicology-April 2024. Plan -Consider Utox in AM .-No acitve intervention Health Maintenance: Disp: Pt is currently admitted to floors for further management of CHF exacerbation, awaiting clinical improvement FEN: Cardiac, 2 gram Na DVT: on subQ heparin Code: Full Code - The patient's plan was discussed with attending Dr. Elder and senior Dr. Paolo Orourke MD PGY1 Internal Medicine Attending Provider Attestation/Addendum I have discussed and was present for the essential components of the history, physical examination, diagnosis, and treatment plan with the resident. I agree with the patient's care as documented by the resident and amended herein by me. Prem Elder DO. Although this document has been carefully reviewed, there may still be some phonetic and other typographical errors. These errors are purely grammatical due to imperfections in the software program and should not be construed in any way to compromise the substance of the patient's medical care during this visit.
[2024-07-08] MEDS: POLYETHYLENE GLYCOL 17 GM PACKET PO (16:53)
[2024-07-08] MEDS: METOPROLOL SUCCINATE XL 25 MG TABCR PO (16:54)
[2024-07-08] MEDS: guaiFENesin ER 600 MG TABCR PO (20:24)
[2024-07-08] MEDS: ATORVASTATIN CALCIUM 20 MG TABLET 80 MG PO (20:24)
[2024-07-08] MEDS: SENNA TABLET 1 TAB PO (23:33)
[2024-07-09] VITALS (16 sets, daily range): BP systolic 99–117; BP diastolic 65–75; PULSE 58–85; RESP 16–28; TEMP 35.9–36.6; O2SAT 92–100
[2024-07-09] MEDS: ALBUTEROL/IPRATROPIUM (Duoneb) RT SOL 3 ML NEBU INH ×6 (02:28→22:20)
[2024-07-09 06:05] LABS: Anion Gap 6 (7-16); BUN/Creatinine Ratio 29 Ratio (12-20); Blood Urea Nitrogen 46 mg/dL (9-23); Calcium 9.1 mg/dL (8.3-10.6); Chloride 103 mMol/L (98-107); Creatinine (Component) 1.6 mg/dL (0.6-1.3); Estimated Creatinine Clearance 46.3 mL/min (>60); Glucose 111 mg/dL (74-106); Magnesium 2.8 mg/dL (1.6-2.6); Osmolality,Calculated 294 (275-295); Phosphorous 3.5 mg/dL (2.4-5.1); Potassium 3.9 mMol/L (3.4-5.1); Sodium 141 mMol/L (136-145); eGFR 45 See Note
[2024-07-09 06:47] LABS: Basophils % (Auto) 0 % (0-2.5); Eosinophils # (Auto) 0.1 Thou/mm3 (0.0-0.5); Eosinophils % (Auto) 1 % (0-10); Hematocrit 40.1 % (41.0-53.0); Hemoglobin 12.6 g/dL (13.5-16.0); Immature Granulocytes % (Auto) 0 % (0-0); Immature Granulocytes Auto 0.05 Thou/mm3 (0.00-0.00); Lymphocytes # (Auto) 1.7 Thou/mm3 (1.0-4.8); Lymphocytes % (Auto) 12 % (10-50); Mean Corpuscular HGB Conc 31.4 g/dl (31.0-37.0); Mean Corpuscular Hemoglobin 30.2 pg (25.0-35.0); Mean Corpuscular Volume 96 fL (80-100); Monocytes # (Auto) 0.7 Thou/mm3 (0.0-0.8); Monocytes % (Auto) 5 % (0-12); Neutrophils # (Auto) 11.8 Thou/mm3 (1.8-7.7); Neutrophils % (Auto) 82 % (37-80); Nucleated Red Blood Cell % 0 /100 WBC (0); Platelet Count 129 Thou/mm3 (140-440); RDW Standard Deviation 57.9 fL (35.1-43.9); Red Blood Count 4.17 Miln/mm3 (4.50-5.90); White Blood Count 14.3 Thou/mm3 (3.8-10.6)
[2024-07-09] MEDS: ASPIRIN EC 81 MG TABEC PO (08:00)
[2024-07-09] MEDS: BUMETANIDE 0.5 MG TABLET 1 MG PO ×2 (08:00→21:02)
[2024-07-09] MEDS: POLYETHYLENE GLYCOL 17 GM PACKET PO (08:00)
[2024-07-09] MEDS: NICOTINE PATCH 7 MG/24 HR PATCH.TD24 TOP (08:00)
[2024-07-09] MEDS: AZITHROMYCIN 250 MG TABLET 500 MG PO (08:00)
[2024-07-09] MEDS: METOPROLOL SUCCINATE XL 25 MG TABCR PO (08:00)
[2024-07-09] MEDS: guaiFENesin ER 600 MG TABCR PO ×2 (08:01→21:00)
[2024-07-09] MEDS: HEPARIN SOD INJ 5000 UNIT/ML VIAL SC ×2 (08:01→20:59)
--- NOTE | 2024-07-09 08:58 | XR_ITS ---
Examination: AP chest single view Technique one AP portable semiupright chest single view Exam date and time: June 09, 2024 0923 hrs. Comparison July 07, 2024 Indications: Inpatient with worsening hypoxia shortness of breath Findings: Mild to moderate CHF Moderate enlargement cardiac contour Prominent vascular congestion central vascular engorgement Perihilar basilar edema Cardiac leads stable position Impression: Mild to moderate CHF
--- NOTE | 2024-07-09 09:26 | ESPR_ITS ---
Documentation for date of: 07/09/24 Subjective Subjective Interval history: Patient was seen and examined at the bedside. Patient reported that he does not feel short of breath and has been feeling better since yesterday. No acute overnight events were reported. Vitals showed blood pressure on softer side with 101/65 regular heart rate and saturating well on 4 L NC. Labs revealed mild elevation in white count with stable hemoglobin. Mild drop in platelet count. Mild contraction alkalosis with bicarb 32. Kidney functions improved with BUN 46 and creatinine 1.6. Repeat chest x-ray showed mild heart failure pattern. Patient did not show good diuresis output therefore Bumex dose was increased to 1 p.o. twice daily continue metoprolol succinate 25 mg once daily. Antibiotics were discontinued given less concern for pneumonia as blood cultures showing no growth for 24 hours. Cardiology recommendations pending. Exam Vital Signs Temp Pulse Resp BP Pulse Ox O2 Del Method O2 Flow Rate 97.8 F 68 17 105/75 98 High Flow Nasal Cannula 40 07/09/24 07:57 07/09/24 08:00 07/09/24 07:57 07/09/24 08:00 07/09/24 07:57 07/09/24 07:57 07/09/24 07:57 FiO2 100 07/09/24 07:57 Narrative Exam GENERAL APPEARANCE: Patient is AOx3, conversational saturating well on 4 l NC. HEENT: NC, AT. MMM. EOMI, clear conjunctiva, oropharynx clear. NECK: Supple without lymphadenopathy. No stiffness or restricted ROM. HEART: Regular rate and regular rhythm, normal S1/S2, no m/r/g LUNGS: Bilateral decreased breath sounds with mild inspiratory crackles on auscultation ABDOMEN: Soft, nontender, nondistended with good bowel sounds heard. BACK: No CVAT, no obvious deformity. EXTREMITIES: Without cyanosis, clubbing or edema. NEUROLOGICAL: Grossly nonfocal. Alert and oriented, moving all 4 extremities. CN not formally tested but appear grossly intact. Skin: Warm and dry without any rash. Psych: Appropriate mood and affect Objective Labs 07/09/24 05:04 07/09/24 05:04 Labs: Laboratory Results - last 24 hr 07/08/24 07/08/24 07/09/24 08:22 08:34 05:04 WBC 14.3 H RBC 4.17 L Hgb 12.6 L Hct 40.1 L MCV 96 MCH 30.2 MCHC 31.4 RDW Std Deviation 57.9 H Plt Count 129 L Neut % (Auto) 82 H Lymph % (Auto) 12 [place] % (Auto) 5 Eos % (Auto) 1 Baso % (Auto) 0 Neut # (Auto) 11.8 H Lymph # (Auto) 1.7 [place] # (Auto) 0.7 Eos # (Auto) 0.1 Baso # (Auto) 0.0 Immature Gran # (Auto) 0.05 H Absolute Nucleated RBC 0.00 Immature Gran % 0 Nucleated RBC % 0 Sodium 141 Potassium 3.9 Chloride 103 Carbon Dioxide 32.0 H Anion Gap 6 L BUN 46 H Creatinine 1.6 H Estim Creat Clear Calc 46.3 L eGFR 45 L BUN/Creatinine Ratio 29 H Glucose 111 H Calculated Osmolality 294 Calcium 9.1 Phosphorus 3.5 Magnesium 2.8 H Urine Opiates Screen Negative Urine Fentanyl Screen Negative Ur Barbiturates Screen Negative U Amphetamin/Meth Scrn Negative U Benzodiazepines Scrn Negative U Cocaine Metab Screen Negative U Marijuana (THC) Screen Negative Influenza A (Rapid) Negative Influenza B (Rapid) Negative ABG Interpretation ABG results: 07/07/24 17:21 ABG pH 7.36 ABG pCO2 54 H ABG pO2 73 L ABG HCO3 30 H ABG O2 Saturation 94 ABG Base Excess 3 Quality Measures Quality Measures VTE prophylaxis Advance care planning discussed with:: patient Assessment & Plan Assessment Current Active Medications: Generic Name Dose Route Start Last Admin Trade Name Freq PRN Reason Stop Dose Admin Acetaminophen 650 mg 07/07/24 12:45 Acetaminophen 325 Mg Tablet PO 08/06/24 12:44 Q6H PRN Mild Pain 1-3 or Fever >100.4 Albuterol/Ipratropium 3 ml 07/08/24 11:00 07/09/24 06:48 Albuterol/Ipratropium (Duoneb) Rt Kayleigh 3 Ml Nebu INH 08/07/24 10:59 3 ml Q4HRRT PINKY Administration Aspirin 81 mg 07/07/24 13:15 07/09/24 08:00 Aspirin Ec 81 Mg Tabec PO 08/06/24 13:14 81 mg QDAY PINKY Administration Atorvastatin Calcium 80 mg 07/07/24 21:00 07/08/24 20:24 Atorvastatin Calcium 20 Mg Tablet PO 08/06/24 20:59 80 mg HS PINKY Administration Azithromycin 500 mg 07/08/24 09:00 07/09/24 08:00 Azithromycin 250 Mg Tablet PO 07/15/24 08:59 500 mg QDAY PINKY Administration Benzonatate 200 mg 07/08/24 10:22 07/08/24 10:31 Benzonatate 100 Mg Capsule PO 08/07/24 10:21 200 mg Q8HR PRN Administration COUGH Protocol Bumetanide 1 mg 07/09/24 21:00 Bumetanide 0.5 Mg Tablet PO 08/08/24 20:59 BID PINKY Dextrose 25 ml 07/07/24 12:49 Dextrose 50%-Water Inj 50 Ml Syringe IV 08/06/24 12:48 Q15MIN PRN BG 50-70 responsive npo pt Dextrose 50 ml 07/07/24 12:49 Dextrose 50%-Water Inj 50 Ml Syringe IV 08/06/24 12:48 Q15MIN PRN BG <50 OR BG <70 & pt unresponsive Glucagon 1 mg 07/07/24 12:49 Glucagon Inj 1 Mg Vial IM Q15MIN PRN BG <70, and no IV access Guaifenesin 600 mg 07/08/24 21:00 07/09/24 08:01 Guaifenesin Er 600 Mg Tabcr PO 08/07/24 20:59 600 mg BID PINKY Administration Heparin Sodium (Porcine) 5,000 unit 07/07/24 21:00 07/09/24 08:01 Heparin Sod Inj 5000 Unit/Ml Vial SC 07/21/24 20:59 5,000 unit Q12HR PINKY Administration Insulin Human Lispro 0 unit 07/07/24 17:00 07/09/24 07:14 Insulin Lispro (Admelog) 1 Unit/0.01 Ml Unit SC 08/06/24 16:59 Not Given ACHS PINKY Protocol Metoprolol Succinate 25 mg 07/08/24 16:45 07/09/24 08:00 Metoprolol Succinate Xl 25 Mg Tabcr PO 08/07/24 16:44 25 mg QDAY PINKY Administration Mupirocin 0 gm 07/09/24 08:00 Mupirocin Oint 2% 22 Gm Tube TOP 07/16/24 07:59 TID PINKY Nicotine 7 mg 07/07/24 13:00 07/09/24 08:00 Nicotine Patch 7 Mg/24 Hr Patch.Td24 TOP 08/06/24 12:59 7 mg QDAY PINKY Administration Polyethylene Glycol 17 gm 07/08/24 16:45 07/09/24 08:00 Polyethylene Glycol 17 Gm Packet PO 08/07/24 16:44 17 gm QDAY PINKY Administration Sodium Chloride 3 ml 07/07/24 11:05 07/07/24 11:34 Sodium Chloride Rt Kayleigh 0.9% 3 Ml Nebu INH 08/06/24 11:04 3 ml PRN PRN Administration SOLN Plan This patient is a 74 year old male with a past medical history of CHF Systolic Dysfunciton EF 10-15% (04/25/2024) RSVP 50 mmHg, HTN, HLD, CKD, Chronic Obstuctive Pulmonary Disease-smoking 1 pack of day for greater than 20 years, obstructive sleep apnea, CVA, history of methamphetamine use who was admitted for acute CHF exacerbation. Currently continuing p.o. diuresis with Bumex 1 mg twice daily. #Acute hypoxic respiratory failure, improved #Congestive Heart Failure Systolic Dysfunction EF 10-15% #RSVP 50 mmHg #Obstructive Sleep Apnea Etiology: CHF exacerbation can not be ruled out given poor systolic dysfunction with a severely reduce EF. Lower pedal edema noted. Pulmonary vascular congestion on Cxr. Elevated BNP which could be falsely high given BMI and entresto use. CHF exacerbation likely triggered by viral infection. Denied Carvedilol but previous discharge summary listed as such. Pending medication reconciliation. DDx: COPD can not be ruled out given history of chronic smoker with albuterol use at home and clinically appearing as a chronic bronchitis patient. Breathing treatments add, consider Azithromycin vs KS less likey given within range troponins. TSH (07/07/2024): 1.16 Lipid (04/26/2024): Triglycerides 46, Cholesterol 90, LDL 44, HDL 37 Influenza NEGATIVE and COVID NEGATIVE Weight 05/07/2024 92.136-->07/08/2024 91.172 NYHA Class: IV Well's Criteria 0 Plan: -Increase Bumex to 1 mg p.o. twice daily for good diuresis, 07/09 -Continuing Metoprolol Succinate 25 PO Daily, if this is too much, go down to 12.5 mg PO Qday as this is listed under instructions -Holding Entresto, considering adding based on cardiology recs. -Duonebs Q4HR Scheduled -Add Cpap at night, call respiratory AM--> patient stated he does not want to use it. -Covid, influenza, and blood cultures negative for first 24 hours -K>4 and Mg >2 -Fluid Restriction and Sodium Restriction 2 g per day -SpO <90%, support PRN -Daily Weights, Strict Ins and Outs, Fluid Striation (1500), Sodium Restriction 2 grams per day -Cardiology Consult, Dr. Horta, appreciate recommendations. #COPD exacerbation Etiology: Likely COPD exacerbation as wheezing was hear on physical exam this morning. Patient has an extensive history of smoking, although x-ray does not have a flatten diaphgram or elongated torso. Patient does pursed lips when blowing off oxygen. Patient clinically appears as a chronic bronchitis patient. Plan -Continue duonebs -Discontinued azithromycin (07/08/2024-07/09/2024) -Goal: SpO2 88%-92% #CKD STAGE III #HTN Patient has a past medical history of chronic kidney disease. Previous BUN 52 and CR 2.0 which hovers near patients baseline.No change in Cr >0.3. Less likely TYLOR from pre-renal causes. Intrinsci injury secondary to cardio renal and to diabetes mellitus type II. Plan: -Kidney functions showing improvement with diuresis -Holding Entresto -Renally dose medication -avoid nephrotoxins -follow on Cr #CVA #HLD Patient has a past medical history of stroke with no motor function deficits as reported by daughter at bedside. Continue home medication. ASCVD Risk-31% risk of cardio vascular event in 10 years High intensity statin Plan: Aspirin 81 mg QDay Atorvastatin 80 mg HS #Diabetes Mellitus Type 1-lib-slbdasj Dependent Patient has a past medical history of diabetes mellitus type 2 non-insulin dependent with a previous A1c 5.5 on home medication Empagliflozin and sitagliptin. Plan -Sliding scale Lispro -Follow up with Fasting Morning Glucose -Empagliflozin (SLGT-2) caution in GFR <30, Sitagliptin (DDP 4) caution in GFR <45/Heart failure risk (HOME MEDICATION) #Active Smoker Plan -Nicotine Patch #Polysubstance Use Disorder, Meth Preferred drug of choice, Meth. Last positive urine toxicology-April 2024. Plan -Consider Utox in AM -No acitve intervention Health Maintenance: FEN: Cardiac, 2 gram Na DVT: on subQ heparin Code: Full Code Disp: Pt is currently admitted to floors for further management of CHF exacerbation, awaiting clinical improvement on p.o. diuresis. Community- acquired pneumonia was ruled out. - Patient was seen and discussed with attending physician, Dr. Jael Daily MD, PGY 2 Attending Provider Attestation/Addendum I have discussed and was present for the essential components of the history, physical examination, diagnosis, and treatment plan with the resident. I agree with the patient's care as documented by the resident and amended herein by me. Prem Elder, DO. No acute events overnight, vital signs stable, patient afebrile, I/oh 1440/1375. White count slight uptrending to 14 today, creatinine down trended to 1.6, BUN 46. Will continue Bumex 1 mg twice daily today, GDMT as tolerated, continue aspirin, atorvastatin and metoprolol succinate. Repeat chest x-ray also ordered today for increased O2 requirements early a.m. although patient has been weaned down at time of bedside visit. Cardiology consulted, appreciate recommendations. Although this document has been carefully reviewed, there may still be some phonetic and other typographical errors. These errors are purely grammatical due to imperfections in the software program and should not be construed in any way to compromise the substance of the patient's medical care during this visit.
[2024-07-09] MEDS: MUPIROCIN OINT 2% 22 GM TUBE TOP ×3 (09:51→21:11)
[2024-07-09] MEDS: POTASSIUM CHLORIDE 20 mEq TABCR 40 MEQ PO (11:20)
[2024-07-09] MEDS: INSULIN LISPRO (AdmeLOG) 1 UNIT/0.01 ML UNIT SC ×2 (11:20→20:59)
--- NOTE | 2024-07-09 14:54 | PC.SS ---
This is 74-year-old, , male who presented to the ED due to suffering from shortness of breath. Patient appeared alert and oriented to self, place and situation. Patient was pleasant. Patient resides at home with her daughter and grandsons. Patient reported that he uses a cane and 2L of O2 at home. Patient is semi-independent with ADLs. Patient assigned his daughter, Kory Gaytan ([phone]) as his medical decision maker. Patient's PCP is at the [facility] in [place] and grommet man is in [place]. When medically clear, patient will return home, no transportation needed. Discharge plan: return home Next of Kin: kory Gaytan, daughter.
[2024-07-09] MEDS: ATORVASTATIN CALCIUM 20 MG TABLET 80 MG PO (21:06)
[2024-07-10] VITALS (14 sets, daily range): BP systolic 96–124; BP diastolic 1–83; PULSE 65–84; RESP 17–28; TEMP 36.2–36.6; O2SAT 90–100
[2024-07-10] MEDS: ALBUTEROL/IPRATROPIUM (Duoneb) RT SOL 3 ML NEBU INH ×3 (02:48→10:17)
[2024-07-10] MEDS: MUPIROCIN OINT 2% 22 GM TUBE TOP ×2 (05:41→14:09)
[2024-07-10 06:01] LABS: Basophils # (Auto) 0.1 Thou/mm3 (0.0-0.2); Basophils % (Auto) 1 % (0-2.5); Eosinophils # (Auto) 0.3 Thou/mm3 (0.0-0.5); Eosinophils % (Auto) 2 % (0-10); Hematocrit 41.9 % (41.0-53.0); Immature Granulocytes % (Auto) 0 % (0-0); Immature Granulocytes Auto 0.05 Thou/mm3 (0.00-0.00); Lymphocytes # (Auto) 1.8 Thou/mm3 (1.0-4.8); Lymphocytes % (Auto) 14 % (10-50); Mean Corpuscular Hemoglobin 30.7 pg (25.0-35.0); Mean Corpuscular Volume 99 fL (80-100); Monocytes # (Auto) 0.7 Thou/mm3 (0.0-0.8); Monocytes % (Auto) 6 % (0-12); Neutrophils # (Auto) 10.4 Thou/mm3 (1.8-7.7); Neutrophils % (Auto) 78 % (37-80); Nucleated Red Blood Cell % 0 /100 WBC (0); Platelet Count 173 Thou/mm3 (140-440); RDW Standard Deviation 58.8 fL (35.1-43.9); Red Blood Count 4.23 Miln/mm3 (4.50-5.90); White Blood Count 13.4 Thou/mm3 (3.8-10.6)
[2024-07-10 06:25] LABS: Anion Gap 8 (7-16); BUN/Creatinine Ratio 29 Ratio (12-20); Blood Urea Nitrogen 47 mg/dL (9-23); Calcium 9.1 mg/dL (8.3-10.6); Chloride 102 mMol/L (98-107); Creatinine (Component) 1.6 mg/dL (0.6-1.3); Estimated Creatinine Clearance 46.4 mL/min (>60); Glucose 91 mg/dL (74-106); Magnesium 2.7 mg/dL (1.6-2.6); Osmolality,Calculated 291 (275-295); Phosphorous 3.2 mg/dL (2.4-5.1); Potassium 4.4 mMol/L (3.4-5.1); Sodium 140 mMol/L (136-145); eGFR 45 See Note
[2024-07-10] MEDS: guaiFENesin ER 600 MG TABCR PO (08:37)
[2024-07-10] MEDS: METOPROLOL SUCCINATE XL 25 MG TABCR PO (08:37)
[2024-07-10] MEDS: NICOTINE PATCH 7 MG/24 HR PATCH.TD24 TOP (08:37)
[2024-07-10] MEDS: POLYETHYLENE GLYCOL 17 GM PACKET PO (08:38)
[2024-07-10] MEDS: BUMETANIDE 0.5 MG TABLET 1 MG PO (08:38)
[2024-07-10] MEDS: HEPARIN SOD INJ 5000 UNIT/ML VIAL SC (08:39)
[2024-07-10] MEDS: ASPIRIN EC 81 MG TABEC PO (08:39)
--- NOTE | 2024-07-10 13:50 | PC.SS ---
SS received a call from patient's nurse Jaz and informed SS that patient does not have full 02 tank. SS attempted to contact Nayeli, however does not answer. SS was on hold for 15 Min.
--- NOTE | 2024-07-10 14:40 | ESPR_ITS ---
<Statement entered by Anurag Horta MD - 07/12/24 19:13> The patient evaluated by me personally along with resident physician agree with the treatment plan recommendation as documented by Dr. 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 Patient recently underwent INVENTORY ACCOUNTANT-D implantation on 05/31/2024. At bedside, patient's is accompanying him and states that patient has been compliant with his medication but for the last 2 days he has been having increasing shortness of breath with mild exertion and yellow phlegm productive cough. Patient denied fever, chills, palpitations, chest pain/pressure, abdominal pain, dysuria or other associated symptoms. Patient is a 20 pack-year chronic cigarette smoker (quit cigarettes 4 days ago). On last admission patient was discharged on home oxygen, currently using 2 to 3 L. In ED patient was saturating 93% on room air, rest of vitals were significant for BP 94/64 and respiratory rate of 22. Labs were significant for BNP greater than 3280, creatinine of 1.8 (baseline 1.7) and troponin was negative. Chest x-ray reading indicated early heart failure. Cardiology was consulted for further management. 07/07/24: Patient examined at bedside, labs and x-ray reviewed. Patient does not seem to be fluid overloaded, he does have bilateral wheezing. Given his history of chronic cigarette smoking, shortness of breath and productive yellow cough, symptoms seem to be asthma/COPD exacerbation. On physical exam patient does not seem to be fluid overloaded. Patient should receive scheduled breathing treatments and continued home medications as tolerated with Bumex 1 mg daily. 07/10/24: No significant overnight events. Vitals and labs stable. From cardiology point of view, patient safe to be discharged on Metoprolol XL 25 mg, 1/2 tab Entresto and Bumex 1 mg Qday Exam Vital Signs Temp Pulse Resp BP Pulse Ox O2 Del Method O2 Flow Rate 97.8 F 84 18 108/83 100 Nasal Cannula 2 07/10/24 12:00 07/10/24 14:30 07/10/24 14:30 07/10/24 12:00 07/10/24 14:30 07/10/24 12:00 07/10/24 14:30 FiO2 100 07/10/24 12:00 Narrative Exam Constitutional: well-developed, well-nourished, in no acute distress, lying in bed HEENT: NCAT, EOMI, reactive round pupils b/l, patent nares b/l, moist mucous membranes Lung: Vesicular breathing with b/l wheezing, no crackles or rhonchi Heart: Regular S1S2, no murmurs, gallops, or rubs Abdomen: Soft, non-distended, non-tender, bowel sounds present throughout Extremities: No cyanosis, clubbing, no edema, LE pulses present b/l Neurologic: No focal sensory or motor deficits noted, AOx3, appropriate affect Skin: Warm, dry, no lesions or rashes noted Objective Labs 07/10/24 05:04 07/10/24 05:04 Labs: Laboratory Results - last 24 hr 07/10/24 05:04 WBC 13.4 H RBC 4.23 L Hgb 13.0 L Hct 41.9 MCV 99 MCH 30.7 MCHC 31.0 RDW Std Deviation 58.8 H Plt Count 173 D Neut % (Auto) 78 Lymph % (Auto) 14 [place] % (Auto) 6 Eos % (Auto) 2 Baso % (Auto) 1 Neut # (Auto) 10.4 H Lymph # (Auto) 1.8 [place] # (Auto) 0.7 Eos # (Auto) 0.3 Baso # (Auto) 0.1 Immature Gran # (Auto) 0.05 H Absolute Nucleated RBC 0.00 Immature Gran % 0 Nucleated RBC % 0 Sodium 140 Potassium 4.4 D Chloride 102 Carbon Dioxide 30.0 Anion Gap 8 BUN 47 H Creatinine 1.6 H Estim Creat Clear Calc 46.4 L eGFR 45 L BUN/Creatinine Ratio 29 H Glucose 91 Calculated Osmolality 291 Calcium 9.1 Phosphorus 3.2 Magnesium 2.7 H ABG Interpretation ABG results: 07/07/24 17:21 ABG pH 7.36 ABG pCO2 54 H ABG pO2 73 L ABG HCO3 30 H ABG O2 Saturation 94 ABG Base Excess 3 Quality Measures Quality Measures VTE prophylaxis Advance care planning discussed with:: other Assessment & Plan Assessment Current Active Medications: Generic Name Dose Route Start Last Admin Trade Name Gay PRN Reason Stop Dose Admin Acetaminophen 650 mg 07/07/24 12:45 Acetaminophen 325 Mg Tablet PO 08/06/24 12:44 Q6H PRN Mild Pain 1-3 or Fever >100.4 Albuterol/Ipratropium 3 ml 07/08/24 11:00 07/10/24 10:17 Albuterol/Ipratropium (Duoneb) Rt Kayleigh 3 Ml Nebu INH 08/07/24 10:59 3 ml Q4HRRT PINKY Administration Aspirin 81 mg 07/07/24 13:15 07/10/24 08:39 Aspirin Ec 81 Mg Tabec PO 08/06/24 13:14 81 mg QDAY PINKY Administration Atorvastatin Calcium 80 mg 07/07/24 21:00 07/09/24 21:06 Atorvastatin Calcium 20 Mg Tablet PO 08/06/24 20:59 80 mg HS PINKY Administration Benzonatate 200 mg 07/08/24 10:22 07/08/24 10:31 Benzonatate 100 Mg Capsule PO 08/07/24 10:21 200 mg Q8HR PRN Administration COUGH Protocol Bumetanide 1 mg 07/09/24 21:00 07/10/24 08:38 Bumetanide 0.5 Mg Tablet PO 08/08/24 20:59 1 mg BID PINKY Administration Dextrose 25 ml 07/07/24 12:49 Dextrose 50%-Water Inj 50 Ml Syringe IV 08/06/24 12:48 Q15MIN PRN BG 50-70 responsive npo pt Dextrose 50 ml 07/07/24 12:49 Dextrose 50%-Water Inj 50 Ml Syringe IV 08/06/24 12:48 Q15MIN PRN BG <50 OR BG <70 & pt unresponsive Glucagon 1 mg 07/07/24 12:49 Glucagon Inj 1 Mg Vial IM Q15MIN PRN BG <70, and no IV access Guaifenesin 600 mg 07/08/24 21:00 07/10/24 08:37 Guaifenesin Er 600 Mg Tabcr PO 08/07/24 20:59 600 mg BID PINKY Administration Heparin Sodium (Porcine) 5,000 unit 07/07/24 21:00 07/10/24 08:39 Heparin Sod Inj 5000 Unit/Ml Vial SC 07/21/24 20:59 5,000 unit Q12HR PINKY Administration Insulin Human Lispro 0 unit 07/07/24 17:00 07/10/24 13:14 Insulin Lispro (Admelog) 1 Unit/0.01 Ml Unit SC 08/06/24 16:59 Not Given ACHS PINKY Protocol Metoprolol Succinate 25 mg 07/08/24 16:45 07/10/24 08:37 Metoprolol Succinate Xl 25 Mg Tabcr PO 08/07/24 16:44 25 mg QDAY PINKY Administration Mupirocin 0 gm 07/09/24 08:00 07/10/24 14:09 Mupirocin Oint 2% 22 Gm Tube TOP 07/16/24 07:59 1 appln TID PINKY Administration Nicotine 7 mg 07/07/24 13:00 07/10/24 08:37 Nicotine Patch 7 Mg/24 Hr Patch.Td24 TOP 08/06/24 12:59 7 mg QDAY PINKY Administration Polyethylene Glycol 17 gm 07/08/24 16:45 07/10/24 08:38 Polyethylene Glycol 17 Gm Packet PO 08/07/24 16:44 17 gm QDAY PINKY Administration Sodium Chloride 3 ml 07/07/24 11:05 07/07/24 11:34 Sodium Chloride Rt Kayleigh 0.9% 3 Ml Nebu INH 08/06/24 11:04 3 ml PRN PRN Administration SOLN Plan 74-year-old male patient with significant medical history of 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 Patient recently underwent INVENTORY ACCOUNTANT-D implantation on 05/31/2024. Patient admitted for AHRF 2/2 to CHF vs COPD exacerbation. #AHRF 2/2 #HFrEF (EF 10-15%) vs Asthma/COPD exacerbation #s/p INVENTORY ACCOUNTANT-D on 05/31/24 #Nonischemic cardiomyopathy #Hx of hypertension Patient with history of nonischemic cardiomyopathy secondary to chronic methamphetamine abuse Recently underwent INVENTORY ACCOUNTANT-D implantation on 05/31/24 On admission patient complaining of yellow productive cough and shortness of breath Patient on 2 L home oxygen post last hospital admission Patient with > 20 pack-year smoking history Admission labs significant for BNP > 3000, CXR reading showed early HF Most recent echocardiogram indicated: dilated cardiomyopathy with marked LV and diastolic diameter 7.5 cm with severe global hypokinesis and severe systolic dysfunction left ventricle EF 10-15%. Moderate RV dilation. Moderate RV dysfunction. Estimated RVSP 50 mmHg. Severe biatrial dilation. Plan: - Continue home Bumex 1mg Qday - Continue Metoprolol XL 25 mg Qday - Continue 1/2 tablet Entresto Qday - Strict TERRY's - Low sodium diet - Keep Mag > 2 and K > 4 - Fluid restriction - Daily weights - DuoNeb breathing treatments scheduled - Continue Azithromycin #Hyperlipidemia #Hx of CVA Patient with history of non-residual deficit TIA Plan: - Continue ASA and statin #TYLOR #DM2 #Polysubstance abuse -Management per primary team This patient care was discussed with my attending Dr. Mychal Davis MD PGY-2 Disclaimer: Minor errors in adult daycare coordinator may be present since this note was dictated by speech recognition software.
--- NOTE | 2024-07-10 14:48 | PC.SS ---
SS contacted patient's daughter Maria Esther however did not answer. SS contacted patient's grand daughter, Joana [phone], She informed that 02 Agency patient is established through [facility]. SS contacted Kori from [facility] and she informed they will deliver 02 at bedside. SS notified patient's nurse
--- NOTE | 2024-07-10 15:15 | ESDS_ITS ---
<Statement entered by Bradley Segovia MD - 07/11/24 06:45> I discussed with and supervised my co-resident involved in the care of this patient. I agree with the assessment and plan as documented above. Bradley Segovia,PGY-3 Disclaimer: Despite multiple revisions, due to the dictation software being used, the document below may not be free of grammatical errors including phonetic/typographic errors. However, this does not deter from our commitment to providing health care in the patient's best interest in mind. Planned Discharge Date 07/10/24 DS: Providers Provider Date of admission: 07/07/24 12:43 Primary care physician: Physician No Primary/Family Admitting Provider: Karel Contreras MD Attending Provider on Admission: Karel Contreras MD Consults: 07/07/24 12:56 Consult to Cardiology Urgent Comment: Consulting Provider: Anurag Horta Attending Provider on DC: Lana Orourke MD Discharging Provider: Lana Orourke MD DS: Diagnosis Problem List Completed Was Problem List Reviewed/Reconciled?: Yes Hospital Course Hospital Course Hospital course: Summary: Patient is a 74 year old male with a past medical history of CHF Systolic Dysfunciton EF 10-15% (04/25/2024) RSVP 50 mmHg, HTN, HLD, CKD, Chronic Obstuctive Pulmonary Disease-smoking 1 pack of day for greater than 20 years, obstructive sleep apnea, CVA, history of methamphetamine use who was admitted for Hypoxic Respiratory Failure secondary to acute CHF exacerbation and COPD exacerbation with wheezing on physical exam. ER Course: Vital: HR 65, RR 22, spO2 93 on RA with increased work of breathing, wheezing noted per chart review WBC 9.6, Hgb 12.8, Hct 41.5, MCV 98 CMP: Na 140, K 3.5, BUN 39, Cr 1.8, GFR 39, BUN/CR 22, BNP >3280 Troponin 0.031 Cxr (07/09/2024): Mild to Moderate CHF Hospital Course: On floors, patient was restarted on Bumex 2 mg once titrated down to Bumex 1 mg once a day. Metoprolol 25 mg daily reintroduced and Entresto half a tablet twice daily added again. Please follow-up with cardiology as outpatient, COPD exacerbation treated with Azithromycin, Duonebs, and oxygen support. Nicotine patch added.Dr. Horta. Patient likely experienced acute hypoxic respiratory failure secondary to CHF exacerbation and COPD exacerbation secondary to smoking requiring increased oxygen support from home based usually at 2 L. Patient placed on BiPAP and eventually down to a nasal cannula. Blood cultures returned negative for bacteria. Dry weight 94.064 kg. Instructions: -Bumex dosage was changed to 1 mg oral once day to reduce swelling from heart failure -Please continue metoprolol succinate 25 mg once a day for your heart failure -Please continue Entresto 24-26 mg, half a tablet twice a day for your heart failure -Please track your weight every day, if you notice an increase greater than 2 lbs within one day period, please follow up with your drying rack changer. You may need to increase your water pill (Bumex) -Please restrict your salt consumption to 2 grams per day to reduce water retention -Please continue Atorvastatin 40 mg once per night -Please continue Aspirin 81 mg one a day for stroke prevention -Please continue Albuterol inhaler for wheezing 2 puffs as needed every 6 hours -Please continue your diabetic medication Empagliflozin and Sitagliptin, please follow closely your renal function with your primary care provider or drying rack changer. -Morning glucose goal of under 130, please keep blood glucose after meals under 200. -If symptoms worsen, please seek immediate medical attention and return to the nearest emergency room -if you do not have a Primary Care Provider, may follow up with [facility], [address], [place] [address]; Phone Disposition: Home, Dry weight 94.064 kg #Acute hypoxic respiratory failure, improved #Congestive Heart Failure Systolic Dysfunction EF 10-15% #RSVP 50 mmHg #Obstructive Sleep Apnea #COPD exacerbation, improved #CKD STAGE III #HTN #CVA #HLD #Diabetes Mellitus Type 9-fco-weonwyt Dependent #Active Smoker #Polysubstance Use Disorder, Meth - The patient's plan was discussed with attending Dr. Elder and senior residents Dr. Juliette Orourke MD PGY1 Internal Medicine Time Spent with Patient Time attestation: Total time spent providing and/or coordinating discharge services:at least 35 minutes Exam Vital Signs Temp Pulse Resp BP Pulse Ox O2 Del Method O2 Flow Rate 97.8 F 84 18 108/83 100 Nasal Cannula 2 12/23/24 12:00 07/10/24 14:30 07/10/24 14:30 07/10/24 12:00 07/10/24 14:30 07/10/24 12:00 07/10/24 14:30 FiO2 100 07/10/24 12:00 Narrative Exam General Appearance: Alert & Oriented X3, well-nourished male who is lying in bed in no acute distress, with improved work of breathing back to baseline of home oxygen-2Liters HEENT: Skull symmetrical and atraumatic. Conjunctivae pale pink and moist. Pupils equal, round, reactive to light and accommodation (PERRL). External ear without lesion or discharge. Straight, nares patient, mucosa pink, no discharge. Cardio: Normal Rate and Rhythm with S1 and S2 heart sounds. No murmurs or extra heart sounds auscultated. No bruits on carotid auscultation. No peripheral edema or cyanosis. Lungs: Symmetric with good expansion. Chest and back non-tender. Breath sounds vesicular without crackles, wheezing or rhonchi Abdomen: Non-tender, Non-distended, Normal Reactive Bowel Sounds Neuro: Alert, cooperative, oriented to person, place, and time. Speech clear. CN grossly intact. Upper motor strength 5/5 and Lower motor strength 5/5. Sensation intact. Discharge Plan Plan Patient Disposition: HOME (Self Care) Disposition Comment: Stable for admit Care Plan Goals: Instructions: -Bumex dosage was changed to 1 mg oral once day to reduce swelling from heart failure -Please continue metoprolol succinate 25 mg once a day for your heart failure -Please continue Entresto 24-26 mg, half a tablet twice a day for your heart failure -Please track your weight every day, if you notice an increase greater than 2 lbs within one day period, please follow up with your drying rack changer. You may need to increase your water pill (Bumex) -Please restrict your salt consumption to 2 grams per day to reduce water retention -Please continue Atorvastatin 40 mg once per night -Please continue Aspirin 81 mg one a day for stroke prevention -Please continue Albuterol inhaler for wheezing 2 puffs as needed every 6 hours -Please continue your diabetic medication Empagliflozin and Sitagliptin, please follow closely your renal function with your primary care provider or drying rack changer. -Morning glucose goal of under 130, please keep blood glucose after meals under 200. -If symptoms worsen, please seek immediate medical attention and return to the nearest emergency room -if you do not have a Primary Care Provider, may follow up with [facility], [address], [place] [address]; Phone Prescriptions/Referrals Prescriptions/Med Rec: New metoprolol succinate 25 mg Tablet Extended Release 24 Hr 25 mg PO QDAY Qty: 30 0RF Continued albuterol sulfate [ProAir HFA] 90 mcg/actuation Hfa Aerosol Inhaler 2 puff INHALATION Q6H PRN (Reason: Wheezing) sitagliptin 25 mg Tablet 25 mg PO DAILY atorvastatin 80 mg Tablet 40 mg PO HS empagliflozin 10 mg Tablet 10 mg PO QDAY sacubitril-valsartan 24-26 mg Tablet 0.5 tab PO BID Hold Instructions: Resume on 06/01/24. Restart after seeing your PCP or Dr. Horta, depending on your BP. aspirin 81 mg Capsule 81 mg PO QDAY Changed bumetanide 1 mg Tablet 1 mg PO QDAY Qty: 30 0RF Discontinued metoprolol succinate 25 mg Tablet Extended Release 24 Hr 12.5 mg PO DAILY Referrals: No Primary/Family,Physician [Primary Care Provider] - Patient/Caregiver Discharge Instructions Discharge Activity: as per physical therapy Other Discharge Activity Instructions:: -Bumex dosage was changed to 1 mg oral once day to reduce swelling from heart failure -Please continue metoprolol succinate 25 mg once a day for your heart failure -Please continue Entresto 24-26 mg, half a tablet twice a day for your heart failure -Please track your weight every day, if you notice an increase greater than 2 lbs within one day period, please follow up with your drying rack changer. You may need to increase your water pill (Bumex) -Please restrict your salt consumption to 2 grams per day to reduce water retention -Please continue Atorvastatin 40 mg once per night -Please continue Aspirin 81 mg one a day for stroke prevention -Please continue Albuterol inhaler for wheezing 2 puffs as needed every 6 hours -Please continue your diabetic medication Empagliflozin and Sitagliptin, please follow closely your renal function with your primary care provider or drying rack changer. -Morning glucose goal of under 130, please keep blood glucose after meals under 200. -If symptoms worsen, please seek immediate medical attention and return to the nearest emergency room -if you do not have a Primary Care Provider, may follow up with [facility], [address], [place] [address]; Phone Education Materials: Quit-Smoking Tools Help for ..., Heart Failure Meds, What Is Heart Failure, Heart Failure Signs of Flare-Up, Heart Failure: Tracking Your Weight, Heart Failure: Being Active, Coping with Smoking Withdrawal, Staying Smoke-Free, Coping with Heart Failure, Discharge Instructions: COPD, Heart Failure Dc, Heart Failure Print Language: Citizen Of [place] Stand Alone Forms: [facility] Award Info., Patient Portal Info Letter Discharge Order Discharge Orders: Discharge (Routine); Ordered 07/10/24 Ordered By: Bradley Segovia Quality Discharge Quality Measures VTE prophylaxis MD Attestestation MD Attestation I have discussed and was present for the essential components of the discharge history, physical examination, diagnosis, and discharge treatment plan with the resident. I agree with the patient's discharge care as documented by the resident and amended herein by me. Prem Elder DO. The patient understood all discharge instructions, all questions were answered satisfactorily. The patient was instructed to return to the Emergency Department is symptoms worsened or persisted. Patient was afebrile, stable and tolerating p.o. intake at time of discharge. Although this document has been carefully reviewed, there may still be some phonetic and other typographical errors. These errors are purely grammatical due to imperfections in the software program and should not be construed in any way to compromise the substance of the patient's medical care during this visit.
[2024-07-10] MEDS: INSULIN LISPRO (AdmeLOG) 1 UNIT/0.01 ML UNIT SC (16:35)
== END 2024-07-10 17:35 | disposition home or self-care (01) | DRG 291 ==
LOC: SERX 11:51 → SERHOLD 12:58 → S2NX 20:38
PROVIDERS: Nurse Practitioner Primary Care; Admitting Provider Student in an Organized Health Care Education/Training Program; Emergency Provider Emergency Medicine; Visit Provider Student in an Organized Health Care Education/Training Program
DX: I13.0 Hypertensive heart and chronic kidney disease with heart failure and stage 1 through stage 4 chronic kidney disease, or unspecified chronic kidney disease (principal); I50.23 Acute on chronic systolic (congestive) heart failure; J96.01 Acute respiratory failure with hypoxia; E87.3 Alkalosis; J44.1 Chronic obstructive pulmonary disease with (acute) exacerbation; G47.33 Obstructive sleep apnea (adult) (pediatric); N18.32 Chronic kidney disease, stage 3b; F17.210 Nicotine dependence, cigarettes, uncomplicated; Z86.73 Personal history of transient ischemic attack (TIA), and cerebral infarction without residual deficits; E78.5 Hyperlipidemia, unspecified; E11.22 Type 2 diabetes mellitus with diabetic chronic kidney disease; F15.10 Other stimulant abuse, uncomplicated; I49.3 Ventricular premature depolarization; I42.0 Dilated cardiomyopathy
CPT/HCPCS: 36415; 36600; 71045; 80048; 80053; 80061; 80307; 82803; 83690; 83735; 83880; 84100; 84484; 85025; 85379; 85610; 85730; 87040; 87502; 87811; 93005; 94640; 94644; 94660; 94664; 96372; 96374; 96375; 99291; A9270; J1643; J1815; J2919; J3490; J1644

== ENCOUNTER 2024-07-10 21:50 | Inpatient (IN) | payer OTHER, SELFPAY ==
[2024-07-10 21:50] VITALS: BMI 30.4
--- NOTE | 2024-07-10 22:14 | EKG_ITS ---
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
[2024-07-10 22:24] VITALS: BP 110/76; PULSE 74; RESP 40; TEMP 37.2; O2SAT 94
--- NOTE | 2024-07-10 22:31 | XR_ITS ---
Examination: PA chest lateral 2 views Technique: PA lateral chest upright 2 views Exam date and time: July 10, 2024 10:44 PM Indications: Chest pain today. Findings: Mild heart failure Moderate enlargement cardiac contour Prominent vascular congestion including central vascular engorgement Early septal edema at the lung bases Cardiac leads satisfactory position Impression: Mild CHF
--- NOTE | 2024-07-10 22:33 | PD.EDRME ---
Rapid Medical Screening Exam RME Arrival date/time: 07/10/24 21:50 74-year-old male past medical history of CHF and COPD with home O2 presents emergency department complaining of difficulty breathing and shortness of breath. Chief Complaint: Shortness of Breath/Dyspnea Time Seen by Provider: 07/10/24 22:26 Vital signs: Vital Signs Temperature 98.9 F 07/10/24 22:24 Pulse Rate 74 07/10/24 22:24 Respiratory Rate 40 H 07/10/24 22:24 Blood Pressure 110/76 07/10/24 22:24 Pulse Oximetry (%) 94 L 07/10/24 22:24 Oxygen Delivery Method Room Air 07/10/24 22:24 Vital signs reviewed by provider: Yes
[2024-07-10] MEDS: ALBUTEROL/IPRATROPIUM (Duoneb) RT SOL 3 ML NEBU INH (23:15)
[2024-07-10 23:17] VITALS: PULSE 83; RESP 28; O2SAT 96
[2024-07-10 23:34] LABS: Basophils # (Auto) 0.1 Thou/mm3 (0.0-0.2); Basophils % (Auto) 1 % (0-2.5); Eosinophils # (Auto) 0.3 Thou/mm3 (0.0-0.5); Eosinophils % (Auto) 2 % (0-10); Hematocrit 44.2 % (41.0-53.0); Hemoglobin 13.5 g/dL (13.5-16.0); Immature Granulocytes % (Auto) 1 % (0-0); Immature Granulocytes Auto 0.07 Thou/mm3 (0.00-0.00); Lymphocytes # (Auto) 1.6 Thou/mm3 (1.0-4.8); Lymphocytes % (Auto) 12 % (10-50); Mean Corpuscular HGB Conc 30.5 g/dl (31.0-37.0); Mean Corpuscular Hemoglobin 29.9 pg (25.0-35.0); Mean Corpuscular Volume 98 fL (80-100); Monocytes # (Auto) 0.9 Thou/mm3 (0.0-0.8); Monocytes % (Auto) 6 % (0-12); Neutrophils # (Auto) 11.2 Thou/mm3 (1.8-7.7); Neutrophils % (Auto) 79 % (37-80); Nucleated Red Blood Cell % 0 /100 WBC (0); Platelet Count 153 Thou/mm3 (140-440); RDW Standard Deviation 57.9 fL (35.1-43.9); Red Blood Count 4.52 Miln/mm3 (4.50-5.90); White Blood Count 14.1 Thou/mm3 (3.8-10.6)
[2024-07-10 23:52] LABS: INR 1.3 (0.9-1.3); Partial Thromboplastin Time 29.1 Seconds (22.0-36.0); Prothrombin Time 13.7 Seconds (9.0-12.2)
[2024-07-10 23:53] LABS: B-Type Natriuretic Peptide > 3280 pg/mL (0-100)
[2024-07-10 23:54] LABS: Alanine Aminotransferase 48 U/L (10-49); Albumin, Serum 4.3 gm/dL (3.4-4.8); Albumin/Globulin Ratio 1.5 (1.2-2.2); Alkaline Phosphatase 107 U/L (46-116); Anion Gap 7 (7-16); Aspartate Amino Transferase 52 U/L (0-34); BUN/Creatinine Ratio 28 Ratio (12-20); Blood Urea Nitrogen 45 mg/dL (9-23); Calcium 9.5 mg/dL (8.3-10.6); Calcium (Corrected) 9.5 mg/dL (8.5-10.1); Carbon Dioxide 29.6 mMol/L (20.0-31.0); Chloride 101 mMol/L (98-107); Creatinine (Component) 1.6 mg/dL (0.6-1.3); Estimated Creatinine Clearance 45.6 mL/min (>60); Globulin 2.8 gm/dL (2.3-3.5); Glucose 102 mg/dL (74-106); Magnesium 2.6 mg/dL (1.6-2.6); Osmolality,Calculated 287 (275-295); Potassium 4.7 mMol/L (3.4-5.1); Sodium 138 mMol/L (136-145); Total Protein 7.1 gm/dL (5.7-8.2); Troponin I 0.034 ng/mL (0.0-0.045); eGFR 45 See Note
[2024-07-11] VITALS (19 sets, daily range): BP systolic 92–130; BP diastolic 54–83; PULSE 62–93; RESP 16–90; TEMP 35.7–37.4; O2SAT 93–100
--- NOTE | 2024-07-11 00:41 | PD.EDSOB ---
ED SOB =RME/HPI General Chief Complaint: Shortness of Breath/Dyspnea Stated Complaint: SOB D/C TODAY Time Seen by Provider: 07/10/24 22:26 Arrival date/time: 07/10/24 21:50 RME / HPI RME / HPI Narrative: 07/10/24 21:50 74-year-old male past medical history of CHF and COPD with home O2 presents emergency department complaining of difficulty breathing and shortness of breath. ---- This section includes all my notes and documentations, including HPI, PE, and ED course. Mitchell Flannery MD HPI: 74yo male with a history of CHF, COPD on 2L at home, HTN, HLD presents to the ED for a chief complaint of shortness of breath. Patient was just discharged from this facility a few hours ago after being admitted for COPD and CHF exacerbation. Patient states when he was discharged, he initially felt okay, but states when he got home and tried to get around the house, he became severely short of breath, so he came back in for further evaluation. He has an associated cough. He denies any fever, chills or any other associated symptoms. No other complaints reported. ROS: All negative except as documented in HPI. Physical Exam: General: Alert and oriented. In moderate to severe respiratory distress. Eyes: Conjunctivae and lids clear. ENT: No nasal congestion. Neck: Supple. No JVD. Heart: RRR. Lungs: Moderate to severe respiratory distress. Moderately decreased air movement with diffuse Rales. Abdomen: Soft and nontender. Legs: No clubbing, cyanosis, edema. Skin: Warm and dry. Neuro: Alert and oriented X 3. I reviewed all diagnostic test results. My interpretation of the EKG is paced rhythm. My interpretation of the chest x-ray is increased vascular congestion. My review of the chest CT report is pneumonia and CHF. Blood tests and urine tests remarkable for hypoxia, WBC 14.1, negative troponin, and BNP > 3280. At this point, diagnoses include acute respiratory failure with hypoxia, severe CHF, and hospital-acquired pneumonia. Treatment here included Lasix and morphine and topical NTG and vancomycin and cefepime. No significant improvement noted. I discussed the case with our hospitalist. About the presentation and exam and diagnostics and treatments here. And need of further care in the hospital. Will accept the patient. Mitchell Flannery MD Related Data Home Medications ?Medication ?Instructions ?Recorded ?Confirmed albuterol sulfate 90 mcg/actuation 2 puff inhalation Q6H PRN Wheezing 10/09/18 07/07/24 aerosol inhaler (ProAir HFA) aspirin 81 mg capsule 81 mg PO QDAY 04/25/24 07/07/24 atorvastatin 80 mg tablet 40 mg PO HS 04/25/24 07/07/24 empagliflozin 10 mg tablet 10 mg PO QDAY 04/25/24 07/07/24 sacubitril 24 mg-valsartan 26 mg 0.5 tab PO BID 04/25/24 07/07/24 tablet sitagliptin 25 mg tablet 25 mg PO DAILY 07/07/24 07/07/24 Previous Rx's ?Medication ?Instructions ?Recorded bumetanide 1 mg tablet 1 mg PO QDAY #30 tabs 07/10/24 metoprolol succinate 25 mg 25 mg PO QDAY #30 tabs 07/10/24 tablet,extended release 24 hr Allergies Allergy/AdvReac Type Severity Reaction Status Date / Time No Known Drug Allergies Allergy Unknown Verified 07/07/24 11:17 Review of Systems Review of Systems Systems Reviewed: All systems reviewed, normal except as documented ED Exam Narrative Physical exam: As noted in HPI. Course Course Course Narrative: CXR is ordered for determining the etiology of shortness of breath. Quality Measures none Orders Category Date Time Status Bedside Influenza A&B Antigen Test NOW Care 07/10/24 22:33 Active COVID-19 Screening Questionnaire NOW Care 07/11/24 04:[address] Screening NOW Care 07/11/24 01:00 Active Decision to Admit X1 Care 07/11/24 04:20 Active EKG (ED ONLY) *Do not use* NOW Care 07/10/24 22:14 Completed Wiggins [Urinary Catheter] QS Care 07/11/24 02:35 Active Saline [Insert IV] NOW Care 07/11/24 00:[address] angio chest Stat Exams 07/11/24 01:00 Taken EKG (ED Only) Stat Exams 07/10/24 22:14 Draft XR chest 2V Stat Exams 07/10/24 22:31 Completed ABG [Arterial Blood Gas] Stat Lab 07/11/24 01:11 Completed B-Type Natriuretic Peptide Stat Lab 07/10/24 22:53 Completed CBC Stat Lab 12/23/24 22:53 Completed Comprehensive Metabolic Panel Stat Lab 07/10/24 22:53 Completed D-Dimer Stat Lab 07/11/24 01:01 Completed Magnesium Stat Lab 07/10/24 22:53 Completed Partial Thromboplastin Time Stat Lab 07/10/24 22:53 Completed Prothrombin Time with INR Stat Lab 07/10/24 22:53 Completed Troponin I Stat Lab 07/10/24 22:53 Completed Urinalysis Stat Lab 07/10/24 02:29 Completed Albuterol/Ipratr Rt Kayleigh [Duoneb Rt Kayleigh] Med 07/10/24 22:33 Discontinued 3 ml INH X1 ONE Cefepime Inj [Maxipime Inj] 2 gm Med 07/11/24 04:19 Active Sodium Chloride 0.9% (P) [Ns 0.9% (P)] 50 ml IV X1 Furosemide Inj [Lasix Inj] Med 07/11/24 00:59 Discontinued 80 mg IVP X1 ONE MethylPREDNISolone.* [SoluMEDROL Inj] Med 07/11/24 00:59 Discontinued 125 mg IVP X1 ONE Morphine Inj Med 07/11/24 00:59 Discontinued 2 mg IVP X1 ONE Nitroglycerin Oint 2% [Nitro-paste Oint 2%] Med 07/11/24 00:59 Discontinued 2 inch TOP X1 ONE Ondansetron Inj [Zofran Inj] Med 07/11/24 02:04 Discontinued 4 mg IV Q4HR PRN Vancomycin Inj 2,000 mg Med 07/11/24 04:19 Active Sodium Chloride 0.9% 500 ml [Ns] 500 ml IV X1 Oxygen Delivery NOW RT 07/10/24 22:31 Active Vital Signs Vital signs: Vital Signs Temperature 98.9 F 07/10/24 22:24 Pulse Rate 74 07/10/24 22:24 Respiratory Rate 40 H 07/10/24 22:24 Blood Pressure 110/76 07/10/24 22:24 Pulse Oximetry (%) 94 L 07/10/24 22:24 Oxygen Delivery Method Room Air 07/10/24 22:24 Shortness of Breath / Dyspnea MDM Narrative MDM Narrative:: Scribe Attestation: 07/11/24 - Francisca Farooq am scribing for and in the presence of Dr. Flannery. Patient data External records reviewed:: [facility] previous records (Per chart review, patient was seen and admitted here on 07/07/24 for COPD exacerbation.) Clinical information provided by:: patient Social determinants that could affect healthcare access:: substance use Patient has the following chronic illnesses:: CHF Systolic Dysfunciton EF 10-15% (04/25/2024) RSVP 50 mmHg, HTN, HLD, CKD, Chronic Obstuctive Pulmonary Disease-smoking 1 pack of day for greater than 20 years, obstructive sleep apnea How is presenting disease/condition affected by chronic disease/condition?: exacerbated by Evaluation data The following diagnostics were reviewed and interpreted by me:: lab results, radiology exam(s) and EKG tracing(s) (Paced rhythm (78 bpm). Mitchell Flannery MD) Lab and/or radiology exams considered but not ordered:: none Interpretation Summary: Acute respiratory failure with hypoxia, CHF (congestive heart failure), hospital-acquired pneumonia Medications / Prescriptions Medications or Prescriptions considered but not ordered:: none Medication administrations:: Medication Administration History Cefepime HCl 2 gm/ Sodium (Chloride) 50 mls @ 100 mls/hr IV X1 ONE Stop: 07/11/24 04:48 Vancomycin HCl 2,000 mg/ (Sodium Chloride) 500 mls @ 150 mls/hr IV X1 ONE Stop: 07/11/24 07:38 Discontinued Medications Albuterol/Ipratropium (Albuterol/Ipratropium (Duoneb) Rt Kayleigh 3 Ml Nebu) 3 ml INH X1 ONE Stop: 07/10/24 22:34 Last Admin: 07/10/24 23:15 Dose: 3 ml Documented By: STANISLAV Furosemide (Furosemide Inj 10 Mg/Ml 4ml Vial) 80 mg IVP X1 ONE Stop: 07/11/24 01:00 Last Admin: 07/11/24 02:21 Dose: 80 mg Documented By: DB Methylprednisolone Sodium Succinate (Methylprednisolone Sod Succ 62.5 Mg/Ml 2ml Vial) 125 mg IVP X1 ONE Stop: 07/11/24 01:00 Last Admin: 07/11/24 02:20 Dose: 125 mg Documented By: DB Morphine Sulfate (Morphine Sulf Inj 10 Mg/Ml Vial) 2 mg IVP X1 ONE Stop: 07/11/24 01:00 Last Admin: 07/11/24 02:18 Dose: 2 mg Documented By: DB Nitroglycerin (Nitroglycerin Oint 2% 1 Inch Packet) 2 inch TOP X1 ONE Stop: 07/11/24 01:00 Last Admin: 07/11/24 02:24 Dose: 2 inch Documented By: DB Ondansetron HCl (Ondansetron Inj 2 Mg/Ml Inj 2 Ml) 4 mg IV Q4HR PRN; Protocol PRN Reason: NAUSEA Stop: 08/10/24 02:03 Lasix, morphine, topical NTG, cefepime, vancomycin Consultations Consultation(s) initiated? (list below): Yes Consultation #1 (Physician, Specialty, Details): Discussed case with [the resident physician, attending Dr. Su] from Hospitalist service regarding admission. Discussed patient's ED course, exam findings, labs, and radiology results. The Hospitalist [agrees] to accept the patient for admission. Time: 04:18 Diagnosis Shortness of Breath Differential Diagnosis: acute exacerbation of chronic obstructive airways disease, congestive heart failure, community acquired pneumonia, asthma with exacerbation, pulmonary embolism and other (Respiratory failure, hospital-acquired pneumonia) Most likely diagnosis given after review of the tests above:: Acute respiratory failure with hypoxia, CHF (congestive heart failure), hospital-acquired pneumonia Admission Indicated Admission indicated?: indicated Explain why admission is indicated or not indicated:: Acute respiratory failure Admission Request Was there a request for admission?: Yes Admission Attestation Admission request attestation: Discussed case with Hospitalist service regarding admission. Discussed patients ED course, exam findings, labs, and radiology results. The Hospitalist [agrees,declines] to accept the patient for admission. Disposition Plan Disposition Plan: Admit Critical Care Time Critical Care Time Critical Care Time: Yes Total Critical Care Time (min.): 40 Attestation: Due to a high probability of clinically significant, life threatening deterioration, the patient required my highest level of preparedness to intervene emergently and I personally spent this critical care time directly and personally managing the patient. This critical care time included obtaining a history; examining the patient; ordering and review of studies; arranging urgent treatment with development of a management plan; evaluation of patient's response to treatment; frequent reassessment; and discussions with family and other providers. It was exclusive of separately billable procedures and treating other patients and teaching time. Mitchell Flannery MD Discharge Plan Plan Patient Disposition: Admit Acute Care w/in Hospital Prescriptions/Referrals Prescriptions/Med Rec: No Action albuterol sulfate [ProAir HFA] 90 mcg/actuation Hfa Aerosol Inhaler 2 puff INHALATION Q6H PRN (Reason: Wheezing) sitagliptin 25 mg Tablet 25 mg PO DAILY metoprolol succinate 25 mg Tablet Extended Release 24 Hr 25 mg PO QDAY Qty: 30 0RF bumetanide 1 mg Tablet 1 mg PO QDAY Qty: 30 0RF atorvastatin 80 mg Tablet 40 mg PO HS empagliflozin 10 mg Tablet 10 mg PO QDAY sacubitril-valsartan 24-26 mg Tablet 0.5 tab PO BID Hold Instructions: Resume on 06/01/24. Restart after seeing your PCP or Dr. Horta, depending on your BP. aspirin 81 mg Capsule 81 mg PO QDAY Referrals: No Primary/Family,Physician [Primary Care Provider] - In 1 week Problem List Clinical Impression: Acute respiratory failure with hypoxia, CHF (congestive heart failure), HAP (hospital-acquired pneumonia) Patient/Caregiver Discharge Instructions Print Language: [place] Stand Alone Forms: [facility]loane Award Info., Patient Portal Info Letter
--- NOTE | 2024-07-11 01:00 | XR_ITS ---
Examination: CTA chest with intravenous contrast 2-D reconstructions 3-D reconstructions, vascular Date and time of exam: July 11, 2024 0301 hrs. Indications: Onset hypoxia shortness of breath chest pain today CTDI: vol (mGy) 102.82 DLP: (mGycm) 739 Technique: Multiple axial sections of the thorax have been obtained. 3 mm slice thickness, from below the hemidiaphragms to above the apices of the lungs. Mediastinal and lung density settings have been obtained. 2-D sagittal and coronal reconstructions. 3-D angiographic renderings, 3-D volume renderings, 3D post processing, vascular maximum intensity projections obtained. Contrast administered is 60 cc Isovue-300. Intravenous Low dose protocols were performed. One or more of the following dose reduction techniques were used; automated exposure control, adjustment of the mA and/or KV according to patient size, use of iterative reconstruction technique. Findings: Moderate enlargement cardiac contour Transvenous dual-chamber bipolar cardiac leads noted Prominent vascular congestion No significant thoracic aortic opacification AP dimension ascending thoracic aorta 3.8 cm Mean pulmonary artery segment 41 mm No pulmonary artery emboli Significant pneumonia right middle lobe lingular segment and both bases Mild to moderate right pleural effusion mild left pleural effusion No visualized liver or splenic lesion No definite gallstones No pancreatic mass Partial visualization bilateral renal cysts Impression: Moderate enlargement cardiac contour with prominent vascular congestion Negative for pulmonary artery emboli Significant pneumonia right middle lobe lingular segment left upper lobe and both bases
[2024-07-11 01:19] LABS: Allen Test Performed/OK; Base Excess 2 (-3-3); HCO3 26 mEq/L (20-26); Inspired O2, VO2 Liters 3 L/min; Inspired Oxygen, FIO2 21 %; O2 Saturation 95 % (91-98); PCO2 38 mmHg (32.0-48.0); PO2 68 mmHg (83-108); Puncture Site Right Radial; pH, Arterial 7.44 (7.35-7.45)
[2024-07-11 01:33] LABS: D-Dimer 419 ng/mL (<600)
[2024-07-11] MEDS: MORPHINE SULF INJ 10 MG/ML VIAL 2 MG IVP (02:18)
[2024-07-11] MEDS: MethylPREDNISolone SOD SUCC 62.5 MG/ML 2ML VIAL 125 MG IVP (02:20)
[2024-07-11] MEDS: FUROSEMIDE INJ 10 MG/ML 4ML VIAL 80 MG IVP (02:21)
[2024-07-11] MEDS: NITROGLYCERIN OINT 2% 1 INCH PACKET 2 INCH TOP (02:24)
[2024-07-11 02:43] LABS: Collection Type, Urine Clean Catch
[2024-07-11 02:50] LABS: Bacteria,Urine Rare; Bilirubin,Urine Negative (Negative); Blood,Urine Negative (Negative); Clarity,Urine Clear (Clear/Hazy); Color,Urine Lt-Yellow (Lt Yel-Yel); Glucose, Urine 1+ (Negative); Hyaline Casts,Urine < 1 /hpf (0-1); Ketones,Urine Negative (Negative); Leukocyte Esterase,Urine Negative (Negative); Nitrite,Urine Negative (Negative); Protein,Urine Trace (Neg - Trace); RBC,Urine 1 /hpf (0-3); Specific Gravity,Urine 1.015 (1.001-1.035); Squamous Epithelial Cell,Urine < 1 /hpf (0-5); Urobilinogen,Urine Negative mg/dL (0.0-1.0); WBC,Urine 8 /hpf (0-5)
--- NOTE | 2024-07-11 04:05 | PRELIM_ITS ---
CT angiogram of the chest with intravenous contrast (axial sections with sagittal and coronal reforma ts); dated July 11, 2024 at 0301 hours Clinical History: Shortness of breath, hypoxia. Technique: Helical axial sections with sagittal and coronal reformats of the chest were obtained with intravenou s contrast. Iterative reconstruction technique was employed to reduce patient radiation exposure. 3D/ MIP reconstructed images were also provided. Comparison: None.Findings:There is no filling defect wit hin the pulmonary artery divisions to suggest pulmonary thromboembolism. The mediastinum demonstrates no evidence of mass or lymphadenopathy. The thoracic aorta is unremarkable. There is no pericardial effusion. No pneumothorax.Moderate right pleural effusion.Small left pleural effusion.Consolidation i n bilateral lower lobes and in the right middle lobe.Degenerative changes of the imaged portions of t he spine. No acute fractures. Chronic multilevel disc disease. DISH.The visualized upper abdominal vi scera are unremarkable.Cardiac pacemaker and defibrillator noted.Dilated left atrium.Dilated left zoraida tricle.Impression:No CT evidence of pulmonary thromboembolism.Dilated left atrium and left ventricle. Multifocal pneumonia.Bilateral pleural effusions. Report Electronically Signed By: Joao Bajwa 1 09/11/2023 4:04:42 AM [EST]
--- NOTE | 2024-07-11 05:14 | ESHP_ITS ---
<Statement entered by Angela Su MD - 07/11/24 07:02> I Angela Su MD reviewed the note and agree with the resident's assessment & plan with exceptions as below. I have personally reviewed labs, imaging, home meds/prior records, examined the patient, formulated and discussed management plan with the IM team. A 74-year-old male with history of HFrEF, COPD, HTN recently discharged from hospital following treatment for HFrEF and COPD exacerbation presented to ED with shortness of breath. Patient noted to have leukocytosis, significantly elevated BNP and radiographic findings concerning for congestion and bilateral pulmonary infiltrates. Admitted for HCAP and potential acute decompensation of HFrEF. Started on cefepime and doxycycline, continue diuresis with Bumex and GDMT as tolerated. Documentation for date of: 07/11/24 HPI History of Present Illness Chief complaint: Shortness of breath History of present illness: 74 year old male with a past medical history of CHF Systolic Dysfunciton EF 10- 15% (04/25/2024) RSVP 50 mmHg, HTN, HLD, CKD, Chronic Obstuctive Pulmonary Disease secondary to 20+ pack year, obstructive sleep apnea, CVA, history of methamphetamine use who presents to the ED on 07/11 with shortness of breath. Of note, patient was recently discharged (07/10) from the hospital with acute hypoxic respiratory secondary to CHF exacerbation superimposed COPD exacerbation. Patient was discharged with instructions to come back to the ED if his symptoms were to worsen, which they did. Patient states that at home, even with 2 L oxygen, he felt short of breath and could not breathe while laying flat. Patient has end-stage heart failure with EF noted above; moreover, states that he took the medications that were prescribed to him on his last discharge. Patient denies having any fever/chills, chest pain/tightness, palpitations, nausea, vomiting, diarrhea, melena, hematochezia, hematemesis, dysuria or hematuria. Medical History: As outlined above Surgical History: Back Surgery Colonoscopy (07/10/2024): Diverticulosis and Hemorrhoids Allergies: NKDA Medication:Aspirin 81 mg Metoprolol 25 mg Qday Entrestro Atorvastatin Bumex 1 mg Qday Empagliflozin Sitagliptin Family History: Noncontributory Social History: Smoker >20+ with history of smoking 1 pack per day, history of substance use disorder ROS: All 12 systems assessed and the patient denies unless otherwise stated in HPI. In the ED, patient was normotensive, heart rate 74, tachypneic with respiratory rate in the 40s, afebrile satting 94 on 2 L. Pertinent lab findings included WBC of 14.1, BUN 45, creatinine 1.6, troponin 0.034, BNP greater than 3280. Urinalysis was negative for any urinary tract infection. Chest x-ray does show moderate enlargement of cardiac contour along with prominent vascular congestion and septal edema. EKG showed electronic ventricular pacemaker. Preliminary radiological read from CT chest shows no evidence of PE but there is dilated left atrium along with multifocal pneumonia and bilateral pleural effusions. Patient will be admitted for hospital-acquired pneumonia along with underlying CHF exacerbation and COPD; will be treated with IV antibiotics and diuresis. Exam Vital Signs Temp Pulse Resp BP Pulse Ox O2 Del Method O2 Flow Rate 99.3 F 90 24 H 120/73 94 L Nasal Cannula 2 07/11/24 02:00 07/11/24 03:58 07/11/24 03:58 07/11/24 03:58 07/11/24 03:58 07/11/24 03:58 07/11/24 03:58 Narrative Exam Physical Exam: GENERAL: Awake, answering questions appropriately, appears stated age, on 2L NC HEENT: NC/AT. Moist mucosa. PERRLA/EOMI. CARDIO: Heart RRR, no obvious murmurs, no JVD. PULM: Coughs up yellow/green sputum. Bilateral crackles heard prominently on the upper lung [place]. No wheeze/rales/rhonci GI: Abdomen soft, NT/ND, +BS. URO/MOLDER VACUUM: +Wiggins catheter clear/yellow urine draining SKIN/MSK/EXT: +1 pitting edema noted on b/l lower extremities up to shins. No wounds/discoloration/rashes/amputations noted. +Pedal pulses present B/L. NEURO: Oriented x3, insurance claims specialist strength 5/5, Moves extremities x4. Results: Labs 07/10/24 22:53 07/10/24 22:53 Labs: Short CBC 07/10/24 Range/Units 22:53 WBC 14.1 H (3.8-10.6) Thou/mm3 Hgb 13.5 (13.5-16.0) g/dL Hct 44.2 (41.0-53.0) % Plt Count 153 (140-440) Thou/mm3 BMP 07/10/24 22:53 Sodium 138 Potassium 4.7 Chloride 101 Carbon Dioxide 29.6 BUN 45 H Creatinine 1.6 H Glucose 102 Calcium 9.5 Cardiac Enzymes 07/10/24 Range/Units 22:53 Troponin I 0.034 (0.0-0.045) ng/mL Liver Function 07/10/24 Range/Units 22:53 Total Bilirubin 1.0 (0.3-1.2) mg/dL AST 52 H (0-34) U/L ALT 48 (10-49) U/L Alkaline Phosphatase 107 (46-116) U/L Albumin 4.3 (3.4-4.8) gm/dL Urine 07/10/24 Range/Units 02:29 Urine Color Lt-Yellow (Lt Yel-Yel) Urine Clarity Clear (Clear/Hazy) Urine pH 7.0 (5.0-7.0) Ur Specific [place] 1.015 (1.001-1.035) Urine Protein Trace (Neg - Trace) Urine Glucose (UA) 1+ A (Negative) ABG Interpretation ABG results: 07/11/24 01:11 ABG pH 7.44 ABG pCO2 38 ABG pO2 68 L ABG HCO3 26 ABG O2 Saturation 95 ABG Base Excess 2 Quality Measures Quality Measures none Advance care planning discussed with:: patient Medications Home Medications and Allergies Home Medications ?Medication ?Instructions ?Recorded ?Confirmed ?Type albuterol sulfate 90 mcg/actuation 2 puff inhalation Q6H PRN Wheezing 10/09/18 07/07/24 History aerosol inhaler (ProAir HFA) aspirin 81 mg capsule 81 mg PO QDAY 04/25/24 07/07/24 History atorvastatin 80 mg tablet 40 mg PO HS 04/25/24 07/07/24 History empagliflozin 10 mg tablet 10 mg PO QDAY 04/25/24 07/07/24 History sacubitril 24 mg-valsartan 26 mg 0.5 tab PO BID 04/25/24 07/07/24 History tablet sitagliptin 25 mg tablet 25 mg PO DAILY 07/07/24 07/07/24 History Allergies Allergy/AdvReac Type Severity Reaction Status Date / Time No Known Drug Allergies Allergy Unknown Verified 07/07/24 11:17 Visit Medications Acetaminophen (Acetaminophen 325 Mg Tablet) 650 mg PO Q6H PRN PRN Reason: Pain 1-3 and/or Fever >100.1 Stop: 08/10/24 05:06 Albuterol/Ipratropium (Albuterol/Ipratropium (Duoneb) Rt Kayleigh 3 Ml Nebu) 3 ml INH Q6HRRT [facility] Stop: 08/10/24 06:59 Aspirin (Aspirin Ec 81 Mg Tabec) 81 mg PO QDAY [facility] Stop: 08/10/24 08:59 Bumetanide (Bumetanide 0.5 Mg Tablet) 1 mg PO QDAY [facility] Stop: 08/10/24 08:59 Dapagliflozin (Dapagliflozin Propanediol 5 Mg Tablet) 10 mg PO QDAY [facility] Stop: 08/10/24 08:59 Heparin Sodium (Porcine) (Heparin Sod Inj 5000 Unit/Ml Vial) 5,000 unit SC Q12HR [facility] Stop: 07/25/24 08:59 Vancomycin HCl 2,000 mg/ (Sodium Chloride) 500 mls @ 150 mls/hr IV X1 ONE Stop: 07/11/24 07:38 Metoprolol Succinate (Metoprolol Succinate Xl 25 Mg Tabcr) 25 mg PO QDAY [facility] Stop: 08/10/24 08:59 Ondansetron HCl (Ondansetron Inj 2 Mg/Ml Inj 2 Ml) 4 mg IV Q6H PRN; Protocol PRN Reason: NAUSEA OR VOMITING Stop: 08/10/24 05:06 Sacubitril/Valsartan (Sacubitril 24 Mg/Valsartan 26 Mg Tablet) 0.5 tab PO BID [facility] Stop: 08/10/24 08:59 Sennosides (Senna Tablet) 1 tab PO QDAY [facility]; Protocol Stop: 08/10/24 08:59 Discontinued Medications Albuterol/Ipratropium (Albuterol/Ipratropium (Duoneb) Rt Kayleigh 3 Ml Nebu) 3 ml INH X1 ONE Stop: 07/10/24 22:34 Last Admin: 07/10/24 23:15 Dose: 3 ml Furosemide (Furosemide Inj 10 Mg/Ml 4ml Vial) 80 mg IVP X1 ONE Stop: 07/11/24 01:00 Last Admin: 07/11/24 02:21 Dose: 80 mg Cefepime HCl 2 gm/ Sodium (Chloride) 50 mls @ 100 mls/hr IV X1 ONE Stop: 07/11/24 04:48 Methylprednisolone Sodium Succinate (Methylprednisolone Sod Succ 62.5 Mg/Ml 2ml Vial) 125 mg IVP X1 ONE Stop: 07/11/24 01:00 Last Admin: 07/11/24 02:20 Dose: 125 mg Morphine Sulfate (Morphine Sulf Inj 10 Mg/Ml Vial) 2 mg IVP X1 ONE Stop: 07/11/24 01:00 Last Admin: 07/11/24 02:18 Dose: 2 mg Nitroglycerin (Nitroglycerin Oint 2% 1 Inch Packet) 2 inch TOP X1 ONE Stop: 07/11/24 01:00 Last Admin: 07/11/24 02:24 Dose: 2 inch Ondansetron HCl (Ondansetron Inj 2 Mg/Ml Inj 2 Ml) 4 mg IV Q4HR PRN; Protocol PRN Reason: NAUSEA Stop: 08/10/24 02:03 Assessment & Plan Plan 74 year old male with a past medical history of CHF Systolic Dysfunciton EF 10- 15% (04/25/2024) RSVP 50 mmHg, HTN, HLD, CKD, Chronic Obstuctive Pulmonary Disease secondary to 20+ pack year, obstructive sleep apnea, CVA, history of methamphetamine use who presents to the ED on 07/11 with shortness of breath will be admitted for hospital-acquired pneumonia along with underlying CHF exacerbation and COPD; will be treated with IV antibiotics and diuresis. #Acute Respiratory Failure #Hospital-Acquired PNA #Leukocytosis #COPD exacerbation? Patient was recently discharged from the hospital and was on IV abx Presenting with elevated WBC No wheezing on exam CT Chest shows superimposed PNA bilaterally Covid, influenza A and B negative Plan: Started on IV cefepime Duonebs Q4HR Scheduled Sputum cultures, RSV Mucinex x1 #HFrEF (EF 10-15%) #Dilated Cardiomyopathy #Pulmonary Arterial Hypertension #Ascending Aortic Dilation Likely 2/2 to multifactoria; hypertension, obesity, dm2, polysubstance use- disorder Presenting with crackles and lower extremity pitting edema +1 BNP chronically elevated ECHO from 04/25/2024 shows: Dilated cardiomyopathy with markedly dilated LV end- diastolic diameter 7.5 cm with severe global hypokinesis and severe systolic dysfunction left ventricle ejection fraction approximately 10-15%. Moderate RV dilatation. Moderate RV dysfunction. Estimated RVSP 50mmHg. Severe biatrial dilatation. The ascending aorta is moderately dilated. 4.2cm. Mild mitral valve regurgitation. Mild aortic valve regurgitation Mild to moderate tricuspid valve regurgitation. IVC dilated. 2.5cm. Pleural effusion present. Plan: Bumex 1 mg PO Qday Restarted Farxiga, metoprolol succinate and Entresto (guideline based medical therapy) K>4 and Mg >2 Fluid Restriction 1500ml Daily Weights Strict Ins and Outs Goals of care discussion #CKD III, stable Likely prerenal azotemia 2/2 to CHF and superimposed PNA Patient has a past medical history of chronic kidney disease. No change in Cr >0.3. Plan: Renally dose medication Avoid nephrotoxins Follow-up with morning labs #CVA #HLD Patient has a past medical history of stroke with no motor function deficits ASCVD Risk-31% risk of cardio vascular event in 10 years High intensity statin Plan: Aspirin 81 mg QDay Holding Atorvastatin 80 mg HS - restart when appropriate #Tobacco Dependence #Polysubstance-use disorder Nicotine patch added building services supervisor consult if necessary Hospital Management: Lines: PIV Diet: Cardiac Bowel: Senna GI prophylaxis: not needed DVT prophylaxis: Heparin subq Dispo: IV abx for HAP and diuresis for CHF; Patient would benefit from goals of care discussion regarding poor prognosis of heart failure Code: Full Patient seen and examined with attending Dr. Su and senior resident Dr. Tucker Magallanes, PGY-1
[2024-07-11] MEDS: CEFEPIME INJ 2 GM in SODIUM CHLORIDE 0.9% (P) 50 ML IV ×3 (05:48→21:17)
[2024-07-11] MEDS: Vancomycin Inj 2,000 MG in SODIUM CHLORIDE 0.9% 500 ML 500 ML 150 MG IV (05:56)
[2024-07-11] MEDS: ASPIRIN EC 81 MG TABEC PO (09:36)
[2024-07-11] MEDS: SENNA TABLET 1 TAB PO (09:36)
[2024-07-11] MEDS: HEPARIN SOD INJ 5000 UNIT/ML VIAL SC ×2 (09:36→20:29)
[2024-07-11] MEDS: METOPROLOL SUCCINATE XL 25 MG TABCR PO (09:36)
[2024-07-11] MEDS: SACUBITRIL 24 MG/VALSARTAN 26 MG TABLET 0.5 TAB PO ×2 (09:37→20:29)
[2024-07-11] MEDS: DOXYCYCLINE 100 MG TABLET PO ×2 (09:39→20:29)
[2024-07-11] MEDS: DAPAGLIFLOZIN PROPANEDIOL 5 MG TABLET 10 MG PO (11:55)
[2024-07-11] MEDS: MIDODRINE 5 MG TABLET 10 MG PO (11:55)
[2024-07-11] MEDS: BUMETANIDE INJ 0.25 MG/ML VIAL 4 ML 1 MG IVP (11:56)
[2024-07-11] MEDS: guaiFENesin/DM TABLET 1 EACH PO (11:56)
[2024-07-11] MEDS: ALBUTEROL/IPRATROPIUM (Duoneb) RT SOL 3 ML NEBU INH ×2 (12:53→19:46)
[2024-07-11 13:31] LABS: Respiratory Syncytial Virus Ag Negative (Negative)
--- NOTE | 2024-07-11 13:49 | ESPR_ITS ---
<Statement entered by Bradley Segovia MD - 07/11/24 15:02> patient was admitted overnight , he was discharged yesterday came back for SOB . Ct showed new pneumonia . started on IV antibiotics . will continue current treatment . I discussed with and supervised my co-resident involved in the care of this patient. I agree with the assessment and plan as documented above. Bradley Segovia,PGY-3 Disclaimer: Despite multiple revisions, due to the dictation software being used, the document below may not be free of grammatical errors including phonetic/typographic errors. However, this does not deter from our commitment to providing health care in the patient's best interest in mind. Documentation for date of: 07/11/24 Subjective Subjective Interval history: Patient is a 74 year old male with a past medical history of CHF Systolic Dysfunciton EF 10-15% (04/25/2024) RSVP 50 mmHg, HTN, HLD, CKD, Chronic Obstuctive Pulmonary Disease-smoking 1 pack of day for greater than 20 years, obstructive sleep apnea, CVA, history of methamphetamine use who was admitted for pneumonia, hospital acquired pneumonia. No overnight events reported. Patient was recently discharged on 07/10/2024 for acute hypoxic respiratory failure secondary to CHF and COPD. Patient stated he had dyspnea when walking but had removed his oxygen mask. Patient denied chest pain. Patient denied worsening pedal edema. Exam Vital Signs Temp Pulse Resp BP Pulse Ox O2 Del Method O2 Flow Rate 96.3 F L 70 20 92/54 L 98 Nasal Cannula 2 07/11/24 11:10 07/11/24 12:56 07/11/24 12:56 07/11/24 11:56 07/11/24 12:56 07/11/24 11:10 07/11/24 12:56 Narrative Exam General Appearance: Alert & Oriented X3, well-nourished male who is lying in bed in no acute distress HEENT: Skull symmetrical and atraumatic. Conjunctivae pink and moist. Pupils equal, round, reactive to light and accommodation (PERRL). External ear without lesion or discharge. Straight, nares patient, mucosa pink, no discharge. Lungs: Symmetric expansion. Chest and back non-tender. Breath sounds vesicular with mild crackles and upper airway breathing. Abdomen: Non-tender, Non-distended, Normal Reactive Bowel Sounds Neuro: Alert, cooperative, oriented to person, place, and time. Speech clear. CN grossly intact. Upper motor strength 5/5 and Lower motor strength 5/5. Sensation intact. Objective Labs 07/10/24 22:53 07/10/24 22:53 Labs: Laboratory Results - last 24 hr 07/10/24 07/10/24 07/10/24 02:29 22:53 23:53 WBC 14.1 H RBC 4.52 Hgb 13.5 Hct 44.2 MCV 98 MCH 29.9 MCHC 30.5 L RDW Std Deviation 57.9 H Plt Count 153 Neut % (Auto) 79 Lymph % (Auto) 12 Nance % (Auto) 6 Eos % (Auto) 2 Baso % (Auto) 1 Neut # (Auto) 11.2 H Lymph # (Auto) 1.6 Nance # (Auto) 0.9 H Eos # (Auto) 0.3 Baso # (Auto) 0.1 Immature Gran # (Auto) 0.07 H Absolute Nucleated RBC 0.00 Immature Gran % 1 H Nucleated RBC % 0 PT 13.7 H INR 1.3 APTT 29.1 D-Dimer 419 Puncture Site ABG pH ABG pCO2 ABG pO2 ABG HCO3 ABG O2 Saturation ABG Base Excess Oxygen Liter Flow FiO2 Sodium 138 Potassium 4.7 Chloride 101 Carbon Dioxide 29.6 Anion Gap 7 BUN 45 H Creatinine 1.6 H Estim Creat Clear Calc 45.6 L eGFR 45 L BUN/Creatinine Ratio 28 H Glucose 102 Calculated Osmolality 287 Calcium 9.5 Corrected Calcium 9.5 Magnesium 2.6 Total Bilirubin 1.0 AST 52 H ALT 48 Alkaline Phosphatase 107 Troponin I 0.034 B-Natriuretic Peptide > 3280 H* Total Protein 7.1 Albumin 4.3 Globulin 2.8 Albumin/Globulin Ratio 1.5 Ur Collection Type Clean Catch Urine Color Lt-Yellow Urine Clarity Clear Urine pH 7.0 Ur Specific [place] 1.015 Urine Protein Trace Urine Glucose (UA) 1+ A Urine Ketones Negative Urine Blood Negative Urine Nitrite Negative Urine Bilirubin Negative Urine Urobilinogen (Auto) Negative Ur Leukocyte Esterase Negative Urine RBC 1 Urine WBC 8 H Ur Squamous Epith Cells < 1 Urine Bacteria Rare Hyaline Casts < 1 RSV Rapid 07/11/24 07/11/24 01:11 11:00 WBC RBC Hgb Hct MCV MCH MCHC RDW Std Deviation Plt Count Neut % (Auto) Lymph % (Auto) Nance % (Auto) Eos % (Auto) Baso % (Auto) Neut # (Auto) Lymph # (Auto) Nance # (Auto) Eos # (Auto) Baso # (Auto) Immature Gran # (Auto) Absolute Nucleated RBC Immature Gran % Nucleated RBC % PT INR APTT D-Dimer Puncture Site Right Radial ABG pH 7.44 ABG pCO2 38 ABG pO2 68 L ABG HCO3 26 ABG O2 Saturation 95 ABG Base Excess 2 Oxygen Liter Flow 3 FiO2 21 Sodium Potassium Chloride Carbon Dioxide Anion Gap BUN Creatinine Estim Creat Clear Calc eGFR BUN/Creatinine Ratio Glucose Calculated Osmolality Calcium Corrected Calcium Magnesium Total Bilirubin AST ALT Alkaline Phosphatase Troponin I B-Natriuretic Peptide Total Protein Albumin Globulin Albumin/Globulin Ratio Ur Collection Type Urine Color Urine Clarity Urine pH Ur Specific [place] Urine Protein Urine Glucose (UA) Urine Ketones Urine Blood Urine Nitrite Urine Bilirubin Urine Urobilinogen (Auto) Ur Leukocyte Esterase Urine RBC Urine WBC Ur Squamous Epith Cells Urine Bacteria Hyaline Casts RSV Rapid Negative ABG Interpretation ABG results: 07/11/24 01:11 ABG pH 7.44 ABG pCO2 38 ABG pO2 68 L ABG HCO3 26 ABG O2 Saturation 95 ABG Base Excess 2 Quality Measures Quality Measures none Advance care planning discussed with:: patient Assessment & Plan Assessment Current Active Medications: Generic Name Dose Route Start Last Admin Trade Name Freq PRN Reason Stop Dose Admin Acetaminophen 650 mg 07/11/24 05:07 Acetaminophen 325 Mg Tablet PO 08/10/24 05:06 Q6H PRN Pain 1-3 and/or Fever >100.1 Albuterol/Ipratropium 3 ml 07/11/24 07:00 07/11/24 12:53 Albuterol/Ipratropium (Duoneb) Rt Kayleigh 3 Ml Nebu INH 08/10/24 06:59 3 ml Q6HRRT PINKY Administration Aspirin 81 mg 07/11/24 09:00 07/11/24 09:36 Aspirin Ec 81 Mg Tabec PO 08/10/24 08:59 81 mg QDAY PINKY Administration Atorvastatin Calcium 40 mg 07/11/24 21:00 Atorvastatin Calcium 20 Mg Tablet PO 08/10/24 20:59 HS PINKY Bumetanide 1 mg 07/11/24 11:15 07/11/24 11:56 Bumetanide Inj 0.25 Mg/Ml Vial 4 Ml IVP 08/10/24 11:14 1 mg QDAY PINKY Administration Dapagliflozin 10 mg 07/11/24 09:00 07/11/24 11:55 Dapagliflozin Propanediol 5 Mg Tablet PO 08/10/24 08:59 10 mg QDAY PINKY Administration Doxycycline Hyclate 100 mg 07/11/24 09:00 07/11/24 09:39 Doxycycline 100 Mg Tablet PO 07/18/24 08:59 100 mg BID PINKY Administration Heparin Sodium (Porcine) 5,000 unit 07/11/24 09:00 07/11/24 09:36 Heparin Sod Inj 5000 Unit/Ml Vial SC 07/25/24 08:59 5,000 unit Q12HR PINKY Administration Cefepime HCl 2 gm/ Sodium 50 mls @ 100 mls/hr 07/11/24 14:00 Chloride IV 07/18/24 13:59 Q8HR PINKY Metoprolol Succinate 25 mg 07/11/24 09:00 07/11/24 09:36 Metoprolol Succinate Xl 25 Mg Tabcr PO 08/10/24 08:59 25 mg QDAY PINKY Administration Midodrine 10 mg 07/11/24 11:12 07/11/24 11:55 Midodrine 5 Mg Tablet PO 08/10/24 13:59 10 mg TID PRN Administration low blood pressure Ondansetron HCl 4 mg 07/11/24 05:07 Ondansetron Inj 2 Mg/Ml Inj 2 Ml IV 08/10/24 05:06 Q6H PRN NAUSEA OR VOMITING Protocol Sacubitril/Valsartan 0.5 tab 07/11/24 09:00 07/11/24 09:37 Sacubitril 24 Mg/Valsartan 26 Mg Tablet PO 08/10/24 08:59 0.5 tab BID PINKY Administration Sennosides 1 tab 07/11/24 09:00 07/11/24 09:36 Senna Tablet PO 08/10/24 08:59 1 tab QDAY PINKY Administration Protocol Plan Patient is a 74 year old male with a past medical history of CHF Systolic Dysfunciton EF 10-15% (04/25/2024) RSVP 50 mmHg, HTN, HLD, CKD, Chronic Obstuctive Pulmonary Disease who was admitted on 07/11/2024 for hospital acquired pneumonia. #Acute Respiratory Failure, requiring increased oxygen #Hospital-Acquired PNA #Leukocytosis #COPD exacerbation Etiology: Hospital acquired pneumonia, likely gram positive cocci but aspiration pneumonia can not be ruled out given body habitus DDx: given history elevated pulmonary arterial hypertension and history of meth us, cor plmonale can not be ruled out. Broncho-constriction secondary to COPD can not be ruled. Diagnostics: CTA (06/19/2024): Significant pneumonia right middle lobe lingular segment left upper lobe and both bases WBC 14.1 COVID Negative, Influenza Negative, RSV Negative Sputum Gram: Gram Variable Rods Sputum Culture: Pending MRS -Pending ABG pH 7.44, pCO2 38, pO2 68 L, HCO3 26 PSI 122 points, Class IV, 8.2-9.3% mortality. Hospitalization recommended based on risk Plan: -IV cefepime (07/11/2024--) -Doxycycline 100 BID PO (07/11/2024--) -Duonebs Q4HR Scheduled -Chest Physio -Consult Infectious Disease, Dr. Diez, appreciate recommendations #Acute on Chronic CHF, HFrEF 10-15% (04/25/2024) #Dilated Cardiomyopathy, Systolic Dysfunction #Pulmonary Arterial Hypertension #Severe global hypokinesis #Ascending Aortic Dilation #Non-Adherent Etiology: extensive history of dilated cardiomyopathy, systolic dysfunction with ejection fraction 10% to 15% with previous echo (04/25/2024). Acute on Chronic CHF exacerbation with lower pedal edema and pulmonary vasuclar congestion on cxr. BNP, elevated likely secondary to ejection fraction and Entresto. DDx: less likely secondary to [place] vs less likely secondary to PE CTA negative and Wells Score of 0 Diagnostics: ECHO from 04/25/2024 shows: Dilated cardiomyopathy with markedly dilated LV end- diastolic diameter 7.5 cm with severe global hypokinesis and severe systolic dysfunction left ventricle ejection fraction approximately 10-15%. Moderate RV dilatation. Moderate RV dysfunction. Estimated RVSP 50mmHg. Severe biatrial dilatation. The ascending aorta is moderately dilated. 4.2cm. Mild mitral valve regurgitation. Mild aortic valve regurgitation Mild to moderate tricuspid valve regurgitation. IVC dilated. 2.5cm. Pleural effusion present. BNP >3280, troponin 0.03 Plan: Bumex 1 mg IVP QDay Restarted Farxiga, metoprolol succinate and Entresto (guideline based medical therapy) K>4 and Mg >2 Fluid Restriction 1500ml Daily Weights Strict Ins and Outs Goals of care discussion #CKD III, stable Etiolgoy: Past medical history CKD likely secondary to cardio-renal disease. No change in Cr. Plan: -Follow BUN and Cr levels -Renally dose medication -Avoid nephrotoxins #CVA #HLD Patient has a past medical history of stroke with no motor function deficits ASCVD Risk-31% risk of cardio vascular event in 10 years High intensity statin Plan: Aspirin 81 mg QDay Atorvastatin 80 mg HS #Tobacco Dependence #Polysubstance-use disorder Plan: -Nicotine patch added Health Maintenance: Disp: Pt is currently admitted to floors for further management of pneumonia, awaiting sputum culture. FEN: Cardiac Diet, Fluid restriction 1500 DVT: on subQ heparin Code: Full code - The patient's plan was discussed with attending Dr. Peoples and senior residents Dr. Juliette Orourke MD PGY1 Internal Medicine Attending Provider Attestation/Addendum I, Holly Peoples, , attest that I was physically present for the nathan portions of the service and evaluated the patient with the resident and I reviewed and discussed the case with the resident and agree with the resident's findings and plans of care as documented above Seen and evaluated this a.m. Patient was recently brought up from the ED and appears to be quite somnolent since he was up all night. Patient reports that he was more short of breath prompting him to return to the ER. He appears to have more patchy infiltrates and increased vascular congestion on chest x-ray. Will continue with IV diuresis at this time. Continue with home cardiac meds. Patient has scattered rhonchi and crackles on exam, no wheezing
[2024-07-11] MEDS: ATORVASTATIN CALCIUM 20 MG TABLET 40 MG PO (20:28)
[2024-07-12] VITALS (14 sets, daily range): BP systolic 100–120; BP diastolic 61–70; PULSE 64–86; RESP 16–30; TEMP 36.1–36.7; O2SAT 94–99; BMI 31.4
[2024-07-12] MEDS: ALBUTEROL/IPRATROPIUM (Duoneb) RT SOL 3 ML NEBU INH ×4 (01:35→19:12)
[2024-07-12] MEDS: guaiFENesin/DM TABLET 1 EACH PO (02:38)
[2024-07-12] MEDS: CEFEPIME INJ 2 GM in SODIUM CHLORIDE 0.9% (P) 50 ML IV ×3 (05:14→21:06)
[2024-07-12 06:03] LABS: Basophils % (Auto) 0 % (0-2.5); Eosinophils % (Auto) 0 % (0-10); Hematocrit 41.5 % (41.0-53.0); Immature Granulocytes % (Auto) 1 % (0-0); Immature Granulocytes Auto 0.19 Thou/mm3 (0.00-0.00); Lymphocytes # (Auto) 0.6 Thou/mm3 (1.0-4.8); Lymphocytes % (Auto) 3 % (10-50); Mean Corpuscular HGB Conc 31.3 g/dl (31.0-37.0); Mean Corpuscular Hemoglobin 29.9 pg (25.0-35.0); Mean Corpuscular Volume 95 fL (80-100); Monocytes # (Auto) 0.8 Thou/mm3 (0.0-0.8); Monocytes % (Auto) 4 % (0-12); Neutrophils # (Auto) 18.8 Thou/mm3 (1.8-7.7); Neutrophils % (Auto) 92 % (37-80); Nucleated Red Blood Cell % 0 /100 WBC (0); Platelet Count 146 Thou/mm3 (140-440); RDW Standard Deviation 56.2 fL (35.1-43.9); Red Blood Count 4.35 Miln/mm3 (4.50-5.90)
[2024-07-12 06:11] LABS: White Blood Count 20.4 Thou/mm3 (3.8-10.6)
[2024-07-12 06:48] LABS: Alanine Aminotransferase 28 U/L (10-49); Albumin, Serum 3.9 gm/dL (3.4-4.8); Albumin/Globulin Ratio 1.3 (1.2-2.2); Alkaline Phosphatase 94 U/L (46-116); Anion Gap 10 (7-16); Aspartate Amino Transferase 20 U/L (0-34); BUN/Creatinine Ratio 31 Ratio (12-20); Bilirubin,Total 0.9 mg/dL (0.3-1.2); Blood Urea Nitrogen 49 mg/dL (9-23); Calcium 9.3 mg/dL (8.3-10.6); Calcium (Corrected) 9.4 mg/dL (8.5-10.1); Chloride 102 mMol/L (98-107); Creatinine (Component) 1.6 mg/dL (0.6-1.3); Estimated Creatinine Clearance 46.4 mL/min (>60); Globulin 2.9 gm/dL (2.3-3.5); Glucose 156 mg/dL (74-106); Magnesium 2.6 mg/dL (1.6-2.6); Osmolality,Calculated 293 (275-295); Phosphorous 3.3 mg/dL (2.4-5.1); Potassium 4.4 mMol/L (3.4-5.1); Sodium 139 mMol/L (136-145); Total Protein 6.8 gm/dL (5.7-8.2); eGFR 45 See Note
[2024-07-12] MEDS: ASPIRIN EC 81 MG TABEC PO (08:21)
[2024-07-12] MEDS: SENNA TABLET 1 TAB PO (08:21)
[2024-07-12] MEDS: METOPROLOL SUCCINATE XL 25 MG TABCR PO (08:21)
[2024-07-12] MEDS: SACUBITRIL 24 MG/VALSARTAN 26 MG TABLET 0.5 TAB PO ×2 (08:21→20:33)
[2024-07-12] MEDS: DOXYCYCLINE 100 MG TABLET PO ×2 (08:21→20:33)
[2024-07-12] MEDS: HEPARIN SOD INJ 5000 UNIT/ML VIAL SC ×2 (08:23→20:33)
[2024-07-12] MEDS: BUMETANIDE INJ 0.25 MG/ML VIAL 4 ML 1 MG IVP ×2 (08:23→20:33)
[2024-07-12] MEDS: DAPAGLIFLOZIN PROPANEDIOL 5 MG TABLET 10 MG PO (08:23)
--- NOTE | 2024-07-12 11:06 | PC.SS ---
This is 74-year-old, , male who presented to the ED due to suffering from shortness of breath. Patient appeared alert and oriented to self, place and situation. Patient was pleasant. Patient resides at home with her daughter and grandsons. Patient reported that he uses a cane and 2L of O2 at home. Patient is semi-independent with ADLs. Patient assigned his daughter, Lilian ([phone]) as his medical decision maker. Patient's PCP is at the [facility] in [place] and design sales consultant is in [place]. When medically clear, patient will return home, no transportation needed. Discharge plan: return home Next of Kin: Lilian, daughter
--- NOTE | 2024-07-12 14:02 | ESPR_ITS ---
<Statement entered by Bradley Segovia MD - 07/12/24 14:36> Patient was examined bedside this morning, he was sleeping in bed will increase bumex to bid . continue current management . I discussed with and supervised my co-resident involved in the care of this patient. I agree with the assessment and plan as documented above. Bradley Segovia,PGY-3 Disclaimer: Despite multiple revisions, due to the dictation software being used, the document below may not be free of grammatical errors including phonetic/typographic errors. However, this does not deter from our commitment to providing health care in the patient's best interest in mind. Documentation for date of: 07/12/24 Subjective Subjective Interval history: Patient is a 74 year old male with a past medical history of CHF Systolic Dysfunciton EF 10-15% (04/25/2024) RSVP 50 mmHg, HTN, HLD, CKD, Chronic Obstuctive Pulmonary Disease-smoking 1 pack of day for greater than 20 years, obstructive sleep apnea, CVA, history of methamphetamine use who was admitted for pneumonia, hospital acquired pneumonia. No overnight events reported. Patient was recently discharged on 07/10/2024 for acute hypoxic respiratory failure secondary to CHF and COPD. Patient is currently saturating well on spO2 of 97% on 2 liters which is his home base. Patient denied chest pain or dyspnea. Resting comfortably at bedside. Exam Vital Signs Temp Pulse Resp BP Pulse Ox O2 Del Method O2 Flow Rate 97.0 F 70 20 100/69 97 Nasal Cannula 3 07/12/24 12:00 07/12/24 13:41 07/12/24 13:41 07/12/24 12:00 07/12/24 13:41 07/12/24 12:00 07/12/24 13:41 Narrative Exam General Appearance: Alert & Oriented X3, well-nourished male who is lying in bed in no acute distress HEENT: Skull symmetrical and atraumatic. Conjunctivae pink and moist. Pupils equal, round, reactive to light and accommodation (PERRL). External ear without lesion or discharge. Straight, nares patient, mucosa pink, no discharge. Lungs: Symmetric expansion. Chest and back non-tender. Breath sounds vesicular with mild crackles and upper airway breathing. Abdomen: Non-tender, Non-distended, Normal Reactive Bowel Sounds Neuro: Alert, cooperative, oriented to person, place, and time. Speech clear. CN grossly intact. Upper motor strength 5/5 and Lower motor strength 5/5. Sensation intact. Objective Labs 07/12/24 05:00 07/12/24 04:48 Labs: Laboratory Results - last 24 hr 07/12/24 07/12/24 04:48 05:00 WBC 20.4 H D RBC 4.35 L Hgb 13.0 L Hct 41.5 MCV 95 MCH 29.9 MCHC 31.3 RDW Std Deviation 56.2 H Plt Count 146 Neut % (Auto) 92 H Lymph % (Auto) 3 L [place] % (Auto) 4 Eos % (Auto) 0 Baso % (Auto) 0 Neut # (Auto) 18.8 H Lymph # (Auto) 0.6 L [place] # (Auto) 0.8 Eos # (Auto) 0.0 Baso # (Auto) 0.0 Immature Gran # (Auto) 0.19 H Absolute Nucleated RBC 0.00 Immature Gran % 1 H Nucleated RBC % 0 Sodium 139 Potassium 4.4 Chloride 102 Carbon Dioxide 27.0 Anion Gap 10 BUN 49 H Creatinine 1.6 H Estim Creat Clear Calc 46.4 L eGFR 45 L BUN/Creatinine Ratio 31 H Glucose 156 H D Calculated Osmolality 293 Calcium 9.3 Corrected Calcium 9.4 Phosphorus 3.3 Magnesium 2.6 Total Bilirubin 0.9 AST 20 ALT 28 Alkaline Phosphatase 94 Total Protein 6.8 Albumin 3.9 Globulin 2.9 Albumin/Globulin Ratio 1.3 ABG Interpretation ABG results: 07/11/24 01:11 ABG pH 7.44 ABG pCO2 38 ABG pO2 68 L ABG HCO3 26 ABG O2 Saturation 95 ABG Base Excess 2 Quality Measures Quality Measures none Advance care planning discussed with:: patient Assessment & Plan Assessment Current Active Medications: Generic Name Dose Route Start Last Admin Trade Name Freq PRN Reason Stop Dose Admin Acetaminophen 650 mg 07/11/24 05:07 Acetaminophen 325 Mg Tablet PO 08/10/24 05:06 Q6H PRN Pain 1-3 and/or Fever >100.1 Albuterol/Ipratropium 3 ml 07/11/24 07:00 07/12/24 13:40 Albuterol/Ipratropium (Duoneb) Rt Kayleigh 3 Ml Nebu INH 08/10/24 06:59 3 ml Q6HRRT PINKY Administration Aspirin 81 mg 07/11/24 09:00 07/12/24 08:21 Aspirin Ec 81 Mg Tabec PO 08/10/24 08:59 81 mg QDAY PINKY Administration Atorvastatin Calcium 40 mg 07/11/24 21:00 07/11/24 20:28 Atorvastatin Calcium 20 Mg Tablet PO 08/10/24 20:59 40 mg HS PINKY Administration Bumetanide 1 mg 07/11/24 11:15 07/12/24 08:23 Bumetanide Inj 0.25 Mg/Ml Vial 4 Ml IVP 08/10/24 11:14 1 mg QDAY PINKY Administration Dapagliflozin 10 mg 07/11/24 09:00 07/12/24 08:23 Dapagliflozin Propanediol 5 Mg Tablet PO 08/10/24 08:59 10 mg QDAY PINKY Administration Doxycycline Hyclate 100 mg 07/11/24 09:00 07/12/24 08:21 Doxycycline 100 Mg Tablet PO 07/18/24 08:59 100 mg BID PINKY Administration Guaifenesin/Dextromethorphan 1 each 07/11/24 17:32 07/12/24 02:38 Guaifenesin/Dm Tablet PO 08/10/24 17:31 1 each Q4HR PRN Administration COUGH Heparin Sodium (Porcine) 5,000 unit 07/11/24 09:00 07/12/24 08:23 Heparin Sod Inj 5000 Unit/Ml Vial SC 07/25/24 08:59 5,000 unit Q12HR PINKY Administration Cefepime HCl 2 gm/ Sodium 50 mls @ 100 mls/hr 07/11/24 14:00 07/12/24 13:27 Chloride IV 07/18/24 13:59 100 mls/hr Q8HR PINKY Administration Metoprolol Succinate 25 mg 07/11/24 09:00 07/12/24 08:21 Metoprolol Succinate Xl 25 Mg Tabcr PO 08/10/24 08:59 25 mg QDAY PINKY Administration Midodrine 10 mg 07/11/24 11:12 07/11/24 11:55 Midodrine 5 Mg Tablet PO 08/10/24 13:59 10 mg TID PRN Administration low blood pressure Ondansetron HCl 4 mg 07/11/24 05:07 Ondansetron Inj 2 Mg/Ml Inj 2 Ml IV 08/10/24 05:06 Q6H PRN NAUSEA OR VOMITING Protocol Sacubitril/Valsartan 0.5 tab 07/11/24 09:00 07/12/24 08:21 Sacubitril 24 Mg/Valsartan 26 Mg Tablet PO 08/10/24 08:59 0.5 tab BID PINKY Administration Sennosides 1 tab 07/11/24 09:00 07/12/24 08:21 Senna Tablet PO 08/10/24 08:59 1 tab QDAY PINKY Administration Protocol Plan Patient is a 74 year old male with a past medical history of CHF Systolic Dysfunciton EF 10-15% (04/25/2024) RSVP 50 mmHg, HTN, HLD, CKD, Chronic Obstuctive Pulmonary Disease who was admitted on 07/11/2024 for hospital acquired pneumonia. #Acute Respiratory Failure, requiring increased oxygen #Hospital-Acquired PNA #Leukocytosis #COPD exacerbation Etiology: Hospital acquired pneumonia, likely gram positive cocci but aspiration pneumonia can not be ruled out given body habitus DDx: given history elevated pulmonary arterial hypertension and history of meth us, cor plmonale can not be ruled out. Broncho-constriction secondary to COPD can not be ruled. 07/12/2024-Continue antibiotics, no change in plan. Consider vanco if WBCs continue to up trend. Diagnostics: CTA (06/19/2024): Significant pneumonia right middle lobe lingular segment left upper lobe and both bases WBC 14.1 -->WBC 20.4 (07/12/2024) COVID Negative, Influenza Negative, RSV Negative Sputum Gram: Gram Variable Rods Sputum Culture: Pending MRS -Pending ABG pH 7.44, pCO2 38, pO2 68 L, HCO3 26 PSI 122 points, Class IV, 8.2-9.3% mortality. Hospitalization recommended based on risk Plan: -IV cefepime (07/11/2024--) -Doxycycline 100 BID PO (07/11/2024--) -Duonebs Q4HR Scheduled -Chest Physio -Consult Infectious Disease, Dr. Diez, appreciate recommendations #Acute on Chronic CHF, HFrEF 10-15% (04/25/2024) #Dilated Cardiomyopathy, Systolic Dysfunction #Pulmonary Arterial Hypertension #Severe global hypokinesis #Ascending Aortic Dilation #Non-Adherent Etiology: extensive history of dilated cardiomyopathy, systolic dysfunction with ejection fraction 10% to 15% with previous echo (04/25/2024). Acute on Chronic CHF exacerbation with lower pedal edema and pulmonary vasuclar congestion on cxr. BNP, elevated likely secondary to ejection fraction and Entresto. DDx: less likely secondary to [place] vs less likely secondary to PE CTA negative and Wells Score of 0 Diagnostics: ECHO from 04/25/2024 shows: Dilated cardiomyopathy with markedly dilated LV end- diastolic diameter 7.5 cm with severe global hypokinesis and severe systolic dysfunction left ventricle ejection fraction approximately 10-15%. Moderate RV dilatation. Moderate RV dysfunction. Estimated RVSP 50mmHg. Severe biatrial dilatation. The ascending aorta is moderately dilated. 4.2cm. Mild mitral valve regurgitation. Mild aortic valve regurgitation Mild to moderate tricuspid valve regurgitation. IVC dilated. 2.5cm. Pleural effusion present. BNP >3280, troponin 0.03 Plan: Bumex 1 mg IVP BID. Restarted Farxiga, metoprolol succinate and Entresto (guideline based medical therapy) K>4 and Mg >2 Fluid Restriction 1500ml Daily Weights Strict Ins and Outs Goals of care discussion #CKD III, stable Etiolgoy: Past medical history CKD likely secondary to cardio-renal disease. No change in Cr. Plan: -Follow BUN and Cr levels -Renally dose medication -Avoid nephrotoxins #CVA #HLD Patient has a past medical history of stroke with no motor function deficits ASCVD Risk-31% risk of cardio vascular event in 10 years High intensity statin Plan: Aspirin 81 mg QDay Atorvastatin 80 mg HS #Tobacco Dependence #Polysubstance-use disorder Plan: -Nicotine patch added Health Maintenance: Disp: Pt is currently admitted to floors for further management of pneumonia, awaiting sputum culture. FEN: Cardiac Diet, Fluid restriction 1500 DVT: on subQ heparin Code: Full code - The patient's plan was discussed with attending Dr. Peoples and senior residents Dr. Juliette Orourke MD PGY1 Internal Medicine Attending Provider Attestation/Addendum I, Holly Peoples DO, attest that I was physically present for the nathan portions of the service and evaluated the patient with the resident and I reviewed and discussed the case with the resident and agree with the resident's findings and plans of care as documented above Patient seen eval this a.m. Patient remains lethargic. She continues to have scattered rhonchi and crackles on lung exam. She is currently on patient seen eval this a.m. He continues to have scattered rhonchi productive sputum. Will continue current management of antibiotics and increased diuresis. Patient only had net 500 mL output overnight. Will continue to trend ins and outs and daily weights.
[2024-07-12] MEDS: ATORVASTATIN CALCIUM 20 MG TABLET 40 MG PO (20:33)
[2024-07-13] VITALS (10 sets, daily range): BP systolic 86–122; BP diastolic 55–74; PULSE 68–102; RESP 15–28; TEMP 36.1–36.7; O2SAT 94–99; BMI 31.4
[2024-07-13] MEDS: ALBUTEROL/IPRATROPIUM (Duoneb) RT SOL 3 ML NEBU INH ×3 (00:04→13:15)
[2024-07-13] MEDS: CEFEPIME INJ 2 GM in SODIUM CHLORIDE 0.9% (P) 50 ML IV ×2 (05:07→15:00)
[2024-07-13 06:04] LABS: Basophils % (Auto) 0 % (0-2.5); Eosinophils % (Auto) 0 % (0-10); Hematocrit 36.6 % (41.0-53.0); Hemoglobin 11.7 g/dL (13.5-16.0); Immature Granulocytes % (Auto) 0 % (0-0); Immature Granulocytes Auto 0.05 Thou/mm3 (0.00-0.00); Lymphocytes # (Auto) 1.5 Thou/mm3 (1.0-4.8); Lymphocytes % (Auto) 13 % (10-50); Mean Corpuscular Hemoglobin 30.6 pg (25.0-35.0); Mean Corpuscular Volume 96 fL (80-100); Monocytes # (Auto) 0.8 Thou/mm3 (0.0-0.8); Monocytes % (Auto) 7 % (0-12); Neutrophils # (Auto) 9.3 Thou/mm3 (1.8-7.7); Neutrophils % (Auto) 79 % (37-80); Nucleated Red Blood Cell % 0 /100 WBC (0); Platelet Count 121 Thou/mm3 (140-440); RDW Standard Deviation 56.4 fL (35.1-43.9); Red Blood Count 3.82 Miln/mm3 (4.50-5.90); White Blood Count 11.7 Thou/mm3 (3.8-10.6)
[2024-07-13 06:25] LABS: Alanine Aminotransferase 26 U/L (10-49); Albumin, Serum 3.6 gm/dL (3.4-4.8); Albumin/Globulin Ratio 1.5 (1.2-2.2); Alkaline Phosphatase 76 U/L (46-116); Anion Gap 6 (7-16); Aspartate Amino Transferase 19 U/L (0-34); BUN/Creatinine Ratio 29 Ratio (12-20); Bilirubin,Total 0.6 mg/dL (0.3-1.2); Blood Urea Nitrogen 47 mg/dL (9-23); Calcium 8.7 mg/dL (8.3-10.6); Carbon Dioxide 27.7 mMol/L (20.0-31.0); Chloride 106 mMol/L (98-107); Creatinine (Component) 1.6 mg/dL (0.6-1.3); Estimated Creatinine Clearance 46.3 mL/min (>60); Globulin 2.4 gm/dL (2.3-3.5); Glucose 114 mg/dL (74-106); Magnesium 2.5 mg/dL (1.6-2.6); Osmolality,Calculated 292 (275-295); Phosphorous 2.2 mg/dL (2.4-5.1); Sodium 140 mMol/L (136-145); eGFR 45 See Note
[2024-07-13] MEDS: HEPARIN SOD INJ 5000 UNIT/ML VIAL SC (08:32)
[2024-07-13] MEDS: BUMETANIDE INJ 0.25 MG/ML VIAL 4 ML 1 MG IVP (08:32)
[2024-07-13] MEDS: guaiFENesin/DM TABLET 1 EACH PO (08:34)
[2024-07-13] MEDS: SENNA TABLET 1 TAB PO (08:34)
[2024-07-13] MEDS: ASPIRIN EC 81 MG TABEC PO (08:34)
[2024-07-13] MEDS: METOPROLOL SUCCINATE XL 25 MG TABCR PO (08:34)
[2024-07-13] MEDS: SACUBITRIL 24 MG/VALSARTAN 26 MG TABLET 0.5 TAB PO (08:34)
[2024-07-13] MEDS: DOXYCYCLINE 100 MG TABLET PO (08:34)
--- NOTE | 2024-07-13 13:38 | ESDS_ITS ---
<Statement entered by Holly Peoples DO - 07/14/24 07:14> I, Holly Peoples DO, attest that I was physically present for the nathan portions of the service and evaluated the patient with the resident and I reviewed and discussed the case with the resident and agree with the resident's findings and plans of care as documented above <Statement entered by Bradley Segovia MD - 07/13/24 21:48> I discussed with and supervised my co-resident involved in the care of this patient. I agree with the assessment and plan as documented above. Bradley Segovia,PGY-3 Disclaimer: Despite multiple revisions, due to the dictation software being used, the document below may not be free of grammatical errors including phonetic/typographic errors. However, this does not deter from our commitment to providing health care in the patient's best interest in mind. Planned Discharge Date 07/13/24 DS: Providers Provider Date of admission: 07/11/24 05:07 Primary care physician: Physician No Primary/Family Admitting Provider: Angela Su MD Attending Provider on Admission: Holly Peoples DO Consults: 07/11/24 10:43 Referral Infection Control Routine Comment: Reason for Infection Control Referral: Readmitted within 30 days Attending Provider on DC: Lana Orourke MD Discharging Provider: Lana Orourke MD DS: Diagnosis Problem List Completed Was Problem List Reviewed/Reconciled?: Yes Hospital Course Hospital Course Hospital course: Patient is a 74 year old male with a past medical history of CHF Systolic Dysfunciton EF 10-15% (04/25/2024) RSVP 50 mmHg, HTN, HLD, CKD, Chronic Obstuctive Pulmonary Disease who was admitted on 07/11/2024 for hospital acquired pneumonia. ER Course: In the ED, patient was normotensive, heart rate 74, tachypneic with respiratory rate in the 40s, afebrile satting 94 on 2 L. Pertinent lab findings included WBC of 14.1, BUN 45, creatinine 1.6, troponin 0.034, BNP greater than 3280. Urinalysis was negative for any urinary tract infection. Chest x-ray does show moderate enlargement of cardiac contour along with prominent vascular congestion and septal edema. EKG showed electronic ventricular pacemaker. Preliminary radiological read from CT chest shows no evidence of PE but there is dilated left atrium along with multifocal pneumonia and bilateral pleural effusions. Hospital Course: On admission patient was treated with cefepime and Doxy started on (07/11/2024) with sputum Gram stain showing variable rods rare WBC and epithelial cells. MRSA negative. Patient's oxygen requirement continued to improve until he returned back to his baseline of 2 L nasal cannula, saturating well. Influenza negative, COVID-negative, RSV negative. Given history of COPD and now s uperimposed with hospital-acquired pneumonia patient was scheduled with [facility] and chest physio. Patient continued to be treated for his CHF HFrEF 10 to 15%, likely acute CHF exacerbation in the setting of hospital-acquired pneumonia. Patient continued to be treated with Bumex increased to 1 mg daily to 1 mg twice daily. Home medication continued for Farxiga, metoprolol succinate, and Entresto. Chronic kidney disease stage III stable. History of CVA and hyperlipidemia?patient continued aspirin 81 mg daily and atorvastatin 80 mg daily at bedtime. Nicotine patch added as scheduled for his tobacco dependence. Patient stated he quit approximately 5 days ago. Patient will be discharged on levofloxacin for Pseudomonas coverage, less likely MRSA, 2 more additional days to be taken on the and 17 July. Instructions: -Please continue antibiotic Levofloxacin 750 mg one pill every other day (Take pills on July 15 and July 17 to complete course). -Please continue home medication of Metoprolol 25 mg once a day for heart failure -Please continue Entresto half a tablet twice a day for your heart failure -please continue bumex 1 mg twice a day for heart failure -Please continue Empagliflozin and Sitagliptin for diabetes mellitus type 2 and for heart failure. Please monitor renal function with this medications -Please track your weight and report an increase in weight greater than 2 lbs as you may need to increase Bumex, follow up with [facility], Dr. Horta -Limit your sodium intake of about 2 grams per day -Continue Aspirin 81 mg once a day for heart and stroke prevention -Continue Albuterol 2 puffs as needed for wheezing -If your symptoms worsen,please seek immediate medical attention and return to your nearest emergency room -If you do not have a primary care provider, you may follow up at the [facility] [address], [place] [address] Disposition: Home #Acute Respiratory Failure, improved #Hospital-Acquired PNA #Leukocytosis, improved #COPD exacerbation, improved #Acute on Chronic CHF, HFrEF 10-15% (04/25/2024) #Dilated Cardiomyopathy, Systolic Dysfunction #Pulmonary Arterial Hypertension #Severe global hypokinesis #Ascending Aortic Dilation #Non-Adherent #CKD III, stable #CVA #HLD #Tobacco Dependence #Polysubstance-use disorder - The patient's plan was discussed with attending Dr. Peoples and senior residents DR. Juliette Orourke MD PGY1 Internal Medicine Time Spent with Patient Time attestation: Total time spent providing and/or coordinating discharge services: greater than 35 minutes Exam Vital Signs Temp Pulse Resp BP Pulse Ox O2 Del Method O2 Flow Rate 97.9 F 88 19 86/55 L 99 Nasal Cannula 3 07/13/24 12:00 07/13/24 13:17 07/13/24 13:17 07/13/24 12:00 07/13/24 13:17 07/13/24 12:00 07/13/24 13:17 Narrative Exam General Appearance: Alert & Oriented X3, well-nourished male who is lying in bed in no acute distress with improved work of breathing HEENT: Skull symmetrical and atraumatic. Conjunctivae pin and moist. Pupils equal, round, reactive to light and accommodation (PERRL). External ear without lesion or discharge. Straight, nares patient, mucosa pink, no discharge. Cardio: Normal Rate and Rhythm with S1 and S2 heart sounds. No murmurs appreciated, difficult to appreciate given body habitus. No bruits on carotid auscultation. No peripheral edema. NO JVD appreciated . Lungs: Symmetric with good expansion. Chest and back non-tender. Breath sounds vesicular with mild crackles her on left pulmonary field. Abdomen: Non-tender, Non-distended, Normal Reactive Bowel Sounds Neuro: Alert, cooperative, oriented to person, place, and time. Speech clear. CN grossly intact. Upper motor strength 5/5 and Lower motor strength 5/5. Sensation intact. Discharge Plan Plan Patient Disposition: HOME (Self Care) Health Concerns: Instructions: -Please continue antibiotic Levofloxacin 750 mg one pill every other day (Take pills on July 15 and July 17 to complete course). -Please continue home medication of Metoprolol 25 mg once a day for heart failure -Please continue Entresto half a tablet twice a day for your heart failure -please continue bumex 1 mg twice a day for heart failure -Please continue Empagliflozin and Sitagliptin for diabetes mellitus type 2 and for heart failure. Please monitor renal function with this medications -Please track your weight and report an increase in weight greater than 2 lbs as you may need to increase Bumex, follow up with [facility], Dr. Horta -Limit your sodium intake of about 2 grams per day -Continue Aspirin 81 mg once a day for heart and stroke prevention -Continue Albuterol 2 puffs as needed for wheezing -If your symptoms worsen,please seek immediate medical attention and return to your nearest emergency room -If you do not have a primary care provider, you may follow up at the [facility] at [address] [place] [address] [facility] [address] [address] Prescriptions/Referrals Prescriptions/Med Rec: New levofloxacin 750 mg tablet 750 mg PO Q48H 3 Days Qty: 2 0RF Rx Instructions: every other day so give 2 tablets, renally dosing . Continued albuterol sulfate [ProAir HFA] 90 mcg/actuation Hfa Aerosol Inhaler 2 puff INHALATION Q6H PRN (Reason: Wheezing) sitagliptin 25 mg Tablet 25 mg PO DAILY metoprolol succinate 25 mg Tablet Extended Release 24 Hr 25 mg PO QDAY Qty: 30 0RF atorvastatin 80 mg Tablet 40 mg PO HS empagliflozin 10 mg Tablet 10 mg PO QDAY sacubitril-valsartan 24-26 mg Tablet 0.5 tab PO BID Hold Instructions: Resume on 06/01/24. Restart after seeing your PCP or Dr. Horta, depending on your BP. aspirin 81 mg Capsule 81 mg PO QDAY Changed bumetanide 1 mg Tablet 1 mg PO BID Qty: 30 0RF Referrals: No Primary/Family,Physician [Primary Care Provider] - Patient/Caregiver Discharge Instructions Education Materials: Coping with Heart Failure, Heart Failure Print Language: Qatari Stand Alone Forms: [facility] Award Info., Patient Portal Info Letter Discharge Order Discharge Orders: Discharge (Routine); Ordered 07/13/24 Ordered By: Bradley Segovia Quality Discharge Quality Measures VTE prophylaxis
[2024-07-13 13:46] LABS: Cocci Serology, IgM Negative (Negative)
[2024-07-14 14:29] LABS: Cocci Serology, IgG Negative (Negative)
== END 2024-07-13 17:54 | disposition home or self-care (01) | DRG 291 ==
LOC: SERX 07-11 04:21 → SERHOLD 07-11 05:17 → S3NX 07-11 10:21
PROVIDERS: Admitting Provider Student in an Organized Health Care Education/Training Program; Emergency Provider Emergency Medicine; Visit Provider Internal Medicine
DX: I13.0 Hypertensive heart and chronic kidney disease with heart failure and stage 1 through stage 4 chronic kidney disease, or unspecified chronic kidney disease (principal); I50.23 Acute on chronic systolic (congestive) heart failure; J18.9 Pneumonia, unspecified organism; J96.01 Acute respiratory failure with hypoxia; J44.1 Chronic obstructive pulmonary disease with (acute) exacerbation; J44.0 Chronic obstructive pulmonary disease with (acute) lower respiratory infection; Y95 Nosocomial condition; F17.210 Nicotine dependence, cigarettes, uncomplicated; N18.30 Chronic kidney disease, stage 3 unspecified; E78.5 Hyperlipidemia, unspecified; G47.33 Obstructive sleep apnea (adult) (pediatric); E11.22 Type 2 diabetes mellitus with diabetic chronic kidney disease; Z86.73 Personal history of transient ischemic attack (TIA), and cerebral infarction without residual deficits; I42.0 Dilated cardiomyopathy; I27.21 Secondary pulmonary arterial hypertension; I77.810 Thoracic aortic ectasia; I08.3 Combined rheumatic disorders of mitral, aortic and tricuspid valves
CPT/HCPCS: 36415; 36600; 71046; 71275; 80053; 81001; 82803; 83735; 83880; 84100; 84484; 85025; 85379; 85610; 85730; 86331; 86635; 87077; 87081; 87186; 87205; 87400; 87634; 87811; 93005; 94640; 96365; 96372; 96375; 99291; A4649; A9270; J0692; J1643; J1940; J2270; J2919; J3371; J3490; J7040; J7050; J8499; Q9967; J1644; J3370

== ENCOUNTER 2024-07-21 08:51 | Emergency (ER) | payer OTHER, SELFPAY ==
[2024-07-21 09:04] VITALS: BP 106/66; PULSE 60; RESP 20; TEMP 36.4; O2SAT 98; BMI 32.3
--- NOTE | 2024-07-21 09:07 | XR_ITS ---
Examination: PA lateral chest 2 views TECHNIQUE: Upright PA lateral chest 2 views Exam date and time: July 21, 2024 0931 hours Comparison July 10, 2024 INDICATIONS: Chest pain today. FINDINGS: Mild chronic heart failure pattern Mild to moderate enlargement cardiac contour Prominent vascular congestion including central vascular engorgement Early septal edema at the lung bases Stable position cardiac leads Minor blunting of the posterior costophrenic angles IMPRESSION: Mild chronic heart failure pattern
--- NOTE | 2024-07-21 09:08 | PD.EDRME ---
Rapid Medical Screening Exam E Arrival date/time: 07/21/24 08:51 74-year-old male with a history of hyperlipidemia, hypertension, CHF, presents to the emergency room with a chief complaint of bilateral lower extremity swelling and shortness of breath. Patient states the symptoms have been going on for the last 2 days and have progressively gotten worse. I have greeted and performed a focused initial assessment of this patient. A comprehensive ED assessment and evaluation of the patient, analysis of all test results, and completion of the medical decision making process will be conducted by additional ED providers. Chief Complaint: Chest Pain Time Seen by Provider: 07/21/24 09:01 Vital signs: Vital Signs Temperature 97.6 F 07/21/24 09:04 Pulse Rate 60 07/21/24 09:04 Respiratory Rate 20 07/21/24 09:04 Blood Pressure 106/66 07/21/24 09:04 Pulse Oximetry (%) 98 07/21/24 09:04 Oxygen Delivery Method Room Air 07/21/24 09:04 Vital signs reviewed by provider: Yes
[2024-07-21 09:36] LABS: Basophils # (Auto) 0.1 Thou/mm3 (0.0-0.2); Basophils % (Auto) 1 % (0-2.5); Eosinophils # (Auto) 0.4 Thou/mm3 (0.0-0.5); Eosinophils % (Auto) 4 % (0-10); Hematocrit 43.7 % (41.0-53.0); Hemoglobin 13.4 g/dL (13.5-16.0); Immature Granulocytes % (Auto) 0 % (0-0); Immature Granulocytes Auto 0.03 Thou/mm3 (0.00-0.00); Lymphocytes # (Auto) 1.4 Thou/mm3 (1.0-4.8); Lymphocytes % (Auto) 14 % (10-50); Mean Corpuscular HGB Conc 30.7 g/dl (31.0-37.0); Mean Corpuscular Hemoglobin 30.2 pg (25.0-35.0); Mean Corpuscular Volume 99 fL (80-100); Monocytes # (Auto) 0.7 Thou/mm3 (0.0-0.8); Monocytes % (Auto) 7 % (0-12); Neutrophils # (Auto) 7.1 Thou/mm3 (1.8-7.7); Neutrophils % (Auto) 74 % (37-80); Nucleated Red Blood Cell % 0 /100 WBC (0); Platelet Count 154 Thou/mm3 (140-440); RDW Standard Deviation 60.8 fL (35.1-43.9); Red Blood Count 4.43 Miln/mm3 (4.50-5.90); White Blood Count 9.6 Thou/mm3 (3.8-10.6)
[2024-07-21 09:56] LABS: INR 1.3 (0.9-1.3); Partial Thromboplastin Time 27.1 Seconds (22.0-36.0); Prothrombin Time 13.6 Seconds (9.0-12.2)
[2024-07-21 10:00] LABS: Alanine Aminotransferase 60 U/L (10-49); Albumin, Serum 4.5 gm/dL (3.4-4.8); Albumin/Globulin Ratio 1.7 (1.2-2.2); Alkaline Phosphatase 125 U/L (46-116); Anion Gap 9 (7-16); Aspartate Amino Transferase 59 U/L (0-34); BUN/Creatinine Ratio 18 Ratio (12-20); Bilirubin,Total 0.7 mg/dL (0.3-1.2); Blood Urea Nitrogen 33 mg/dL (9-23); Calcium 9.5 mg/dL (8.3-10.6); Calcium (Corrected) 9.5 mg/dL (8.5-10.1); Carbon Dioxide 30.1 mMol/L (20.0-31.0); Chloride 106 mMol/L (98-107); Creatinine (Component) 1.8 mg/dL (0.6-1.3); Estimated Creatinine Clearance 41.8 mL/min (>60); Globulin 2.7 gm/dL (2.3-3.5); Glucose 111 mg/dL (74-106); Magnesium 2.7 mg/dL (1.6-2.6); Osmolality,Calculated 296 (275-295); Potassium 4.6 mMol/L (3.4-5.1); Sodium 145 mMol/L (136-145); Total Protein 7.2 gm/dL (5.7-8.2); Troponin I 0.032 ng/mL (0.0-0.045); eGFR 39 See Note
[2024-07-21 10:09] LABS: Collection Type, Urine Clean Catch
[2024-07-21 10:17] LABS: Bilirubin,Urine Negative (Negative); Blood,Urine Negative (Negative); Clarity,Urine Clear (Clear/Hazy); Color,Urine Lt-Yellow (Lt Yel-Yel); Glucose, Urine 4+ (Negative); Hyaline Casts,Urine < 1 /hpf (0-1); Ketones,Urine Negative (Negative); Leukocyte Esterase,Urine Negative (Negative); Nitrite,Urine Negative (Negative); Protein,Urine Trace (Neg - Trace); RBC,Urine 2 /hpf (0-3); Specific Gravity,Urine 1.017 (1.001-1.035); Squamous Epithelial Cell,Urine < 1 /hpf (0-5); Urobilinogen,Urine Negative mg/dL (0.0-1.0); WBC,Urine < 1 /hpf (0-5)
[2024-07-21 10:21] LABS: B-Type Natriuretic Peptide > 3280 pg/mL (0-100)
[2024-07-21 12:18] VITALS: BP 104/67; PULSE 73; RESP 17; TEMP 36.3; O2SAT 96
--- NOTE | 2024-07-21 15:18 | PD.EDCHEST ---
ED Chest Pain RME/HPI General Chief Complaint: Chest Pain Stated Complaint: SWELLING TO LOWER EXTREMITIES HX CHF Time Seen by Provider: 07/21/24 09:01 Arrival date/time: 07/21/24 08:51 RME / HPI RME / HPI narrative: DR. CONDON MAIN ED EVALUATION: 74 year old male with past medical history significant for hyperlipidemia, hypertension, and CHF presents to the Emergency Department with complaints of chest pain, shortness of breath, and bilateral lower extremity swelling. Onset of symptoms 2 days and have progressively gotten worse. Related Data Home Medications ?Medication ?Instructions ?Recorded ?Confirmed albuterol sulfate 90 mcg/actuation 2 puff inhalation Q6H PRN Wheezing 10/09/18 07/24/24 aerosol inhaler (ProAir HFA) aspirin 81 mg capsule 81 mg PO QDAY 04/25/24 07/24/24 atorvastatin 80 mg tablet 40 mg PO HS 04/25/24 07/24/24 empagliflozin 10 mg tablet 10 mg PO QDAY 04/25/24 07/24/24 sitagliptin 25 mg tablet 25 mg PO DAILY 07/07/24 07/24/24 Previous Rx's ?Medication ?Instructions ?Recorded bumetanide 1 mg tablet 1 mg PO TID #30 tabs 07/25/24 Allergies Allergy/AdvReac Type Severity Reaction Status Date / Time No Known Drug Allergies Allergy Unknown Verified 07/21/24 08:55 Review of Systems Review of Systems Systems Reviewed: All systems reviewed, normal except as documented Narrative Review of Systems: GEN: No fever, no chills, no weight loss EYES: No discharge, no visual changes, no pain HEENT: No ear pain, no congestion, no sore throat PULM: + shortness of breath, no cough, no congestion CV: + chest pain, no dyspnea on exertion, no palpitations, + bilateral lower extremity swelling GI: No nausea, no vomiting, no diarrhea, no pain, no constipation : No frequency, no urgency and no dysuria MUSC/SKEL: No joint pain, no back pain SKIN: No rash PSYCH: No hallucinations, no depression HEME/LYMPH: No easy bleeding or bruising tendencies NEURO: No weakness, no headache Past Medical History Past Medical History NEUROLOGIC: Positive Neurological Disorders and Cerebrovascular Accident; Negative Seizures CARDIAC: Positive Cardiac Disorders, Angina, Coronary Artery Disease, Congestive Heart Failure, Edema and Hypertension; Negative Cardiac Arrhythmia or Hypercholesterolemia RESPIRATORY: Positive Chronic Obstructive Pulmonary Disease (COPD), Asthma and Bronchitis GASTROINTESTINAL: Negative Gastrointestinal Disorders GENITOURINARY: Positive Genitourinary Disorders and Renal Disease MUSCULOSKELETAL: Positive Musculoskeletal Disorders and Arthritis ENDOCRINE: Negative Endocrine Disorders, Diabetes Mellitus Type 1 or Diabetes Mellitus Type 2 HEMATOLOGIC: Negative Blood Disorders or Sickle Cell Disease PSYCHO/SOCIAL: Positive Recreational Drug Use OTHER HISTORY: Positive Hospitalization and Falls; Negative Autoimmune Disease, Down Syndrome, Developmental Delay, Shingles, Blood Transfusions, Blood Transfusion Reaction, Anesthesia Reactions, MRSA or Cancer Family History FAMILY HISTORY: Positive Family Respiratory Disorders and Family Cardiac Disorders; Negative Family Psychiatric Problems, Family Gastrointestinal Problems, Family Cancer or Family Anesthesia Reaction Surgical History SURGICAL: Positive Cardiac Surgery (pacemaker placement) and Pacemaker; Negative Ear Surgery, Abdominal Surgery or Joint Replacement Social History SMOKING STATUS: Never smoker SUBSTANCE USE: does not use ALCOHOL: Never ED Exam Narrative Physical exam: GENERAL APPEARANCE: alert and oriented x 4, well-developed, well-nourished, no acute distress VITALS: All vitals were reviewed and the pulse ox is 97% on room air, which is normal according to my interpretation. HEENT: Normocephalic, atraumatic; pupils equal, round, reactive to light; EOMI; mucous membranes pink, moist; oropharynx clear NECK: Supple LUNGS: CTABL; no wheezes, no rales, no rhonchi HEART: Regular rate, regular rhythm; normal S1, S2; no murmurs ABDOMEN: non distended; normal BS; soft, no tenderness, no guarding, no rebound; no masses, no organomegaly, no hernia BACK: no CVA tenderness EXTREMITIES: atraumatic; + edema bilateral lower legs NEUROLOGIC: awake; alert and oriented x4; cranial nerves II-XII grossly intact; no focal sensory or motor deficits PSYCHIATRIC: appropriate mood and affect SKIN: warm, dry, normal color; no rashes Course Quality Measures none Orders Category Date Time Status EKG (ED ONLY) *Do not use* NOW Care 07/21/24 09:[address] head/brain wo con Stat Exams 07/21/24 15:32 Completed EKG (ED Only) Stat Exams 07/21/24 09:07 Ordered XR chest 2V Stat Exams 07/21/24 09:07 Completed B-Type Natriuretic Peptide Stat Lab 07/21/24 09:30 Completed CBC Stat Lab 07/21/24 09:30 Completed Comprehensive Metabolic Panel Stat Lab 07/21/24 09:30 Completed Magnesium Stat Lab 07/21/24 09:30 Completed Partial Thromboplastin Time Stat Lab 07/21/24 09:30 Completed Prothrombin Time with INR Stat Lab 07/21/24 09:30 Completed Troponin I Stat Lab 07/21/24 09:30 Completed Urinalysis Stat Lab 07/21/24 09:26 Completed Furosemide [Lasix] Med 07/21/24 15:32 Discontinued 40 mg PO X1 ONE HYDROcodone*/APAP 5/325 [[place] 5/325] Med 07/21/24 15:32 Discontinued 1 tab PO X1 ONE Reevaluation(s) Time: 17:40 Vital Signs Vital signs: Vital Signs Temperature 97.6 F 07/21/24 09:04 Pulse Rate 60 07/21/24 09:04 Respiratory Rate 20 07/21/24 09:04 Blood Pressure 106/66 07/21/24 09:04 Pulse Oximetry (%) 98 07/21/24 09:04 Oxygen Delivery Method Room Air 07/21/24 09:04 Chest Pain MDM Narrative MDM Narrative:: Discussed with patient his symptoms of chronic CHF and balancing worsening kidney function while still maintaining adequate diuresis for symptoms. IAyanna, am scribing for and in the presence of Dr. Condon. Patient data External records reviewed:: [facility] previous records (Reviewed last admission discharge dated 07/13/24, patient admitted for the following: Acute respiratory failure with hypoxia.) Clinical information provided by:: patient Social determinants that could affect healthcare access:: none Patient has the following chronic illnesses:: hyperlipidemia, hypertension, and CHF How is presenting disease/condition affected by chronic disease/condition?: caused by Evaluation data The following diagnostics were reviewed and interpreted by me:: lab results, radiology exam(s) and EKG tracing(s) Lab and/or radiology exams considered but not ordered:: none Interpretation Summary: Procedure(s): XR chest 2V Accession Number(s): [id number] cc: Gautam St; Andrew Eddy MD; NO PRIMARY/FAMILY,PHYSICIAN~ Examination: PA lateral chest 2 views TECHNIQUE: Upright PA lateral chest 2 views Exam date and time: July 21, 2024 0931 hours Comparison July 10, 2024 INDICATIONS: Chest pain today. FINDINGS: Mild chronic heart failure pattern Mild to moderate enlargement cardiac contour Prominent vascular congestion including central vascular engorgement Early septal edema at the lung bases Stable position cardiac leads Minor blunting of the posterior costophrenic angles IMPRESSION: Mild chronic heart failure pattern Dictated By: Andrew Eddy MD Procedure(s): CT head/brain wo con Accession Number(s): [id number] cc: Andrew Eddy MD; NO PRIMARY/FAMILY,PHYSICIAN; Phoebe Condon MD~ Examination: CT brain head without contrast. 2-D sagittal coronal reconstructions Date and time of exam:July 21, 2024 1634 hrs. Indications: Headaches with weakness beginning 2 days ago Comparison: May 28, 2024 CTDI: vol (mGy):57.6 DLP: (mGycm): 1284 Technique: Multiple CT axial sections of the brain have been obtained, 5 mm slice thickness. Contrast has not been administered. 2-D sagittal, coronal reconstructions have been obtained Low dose protocols were performed. One or more of the following dose reduction techniques were used; automated exposure control, adjustment of the mA and/or KV according to patient size, use of iterative reconstruction technique. Findings: No significant ventricular enlargement. Again noted encephalomalacia in the left frontal lobe Old infarct right cerebellar hemisphere Intra-axial or extra-axial hemorrhage density is not seen. No mass effect or midline shift Basal cisterns are not remarkable. Fourth ventricle is midline. Cranial vault intact. Impression: Negative for acute hemorrhage, mass effect or midline shift Old infarcts as above Advise clinical correlation and follow-up accordingly Dictated By: Andrew Eddy MD Medications / Prescriptions Medications or Prescriptions considered but not ordered:: none Medication administrations:: Medication Administration History Discontinued Medications Hydrocodone Bitart/Acetaminophen (Hydrocodone/Apap 5/325 Tablet) 1 tab PO X1 ONE Stop: 07/21/24 15:33 Last Admin: 07/21/24 15:47 Dose: 1 tab Documented By: JORGE Furosemide (Furosemide 40 Mg Tablet) 40 mg PO X1 ONE Stop: 07/21/24 15:33 Last Admin: 07/21/24 15:47 Dose: 40 mg Documented By: JORGE see above Consultations Consultation(s) initiated? (list below): No Diagnosis Chest Pain Differential Diagnosis: costochondritis, chest pain and other (CHF, PE) Most likely diagnosis given after review of the tests above:: Bilateral leg edema Chronic CHF Headache CKD Admission Indicated Admission indicated?: not indicated Admission Request Was there a request for admission?: No Disposition Plan Disposition Plan: Discharge Discharge Attestation Discharge Attestation: The patient and all family members were given an opportunity to ask questions and understood the discharge instructions. Discharge instructions specifically effects, indications for sooner follow up or return to the emergency department, and the expected course of current diagnosis. Patient condition: Stable Discharge Plan Plan Patient Disposition: HOME (Self Care) Prescriptions/Referrals Prescriptions/Med Rec: No Action albuterol sulfate [ProAir HFA] 90 mcg/actuation Hfa Aerosol Inhaler 2 puff INHALATION Q6H PRN (Reason: Wheezing) sitagliptin 25 mg Tablet 25 mg PO DAILY atorvastatin 80 mg Tablet 40 mg PO HS empagliflozin 10 mg Tablet 10 mg PO QDAY aspirin 81 mg Capsule 81 mg PO QDAY bumetanide 1 mg Tablet 1 mg PO TID Qty: 30 0RF Referrals: No Primary/Family,Physician [Primary Care Provider] - In 1 week Problem List Clinical Impression: Bilateral leg edema, Chronic CHF, Headache, CKD (chronic kidney disease) Patient/Caregiver Discharge Instructions Education Materials: ED Leg Swelling in Both Legs Print Language: Frisian Stand Alone Forms: [facility] Award Info., Patient Portal Info Letter
[2024-07-21 15:27] VITALS: BP 118/78; PULSE 70; RESP 19; TEMP 36.6; O2SAT 97
--- NOTE | 2024-07-21 15:32 | XR_ITS ---
Examination: CT brain head without contrast. 2-D sagittal coronal reconstructions Date and time of exam:July 21, 2024 1634 hrs. Indications: Headaches with weakness beginning 2 days ago Comparison: May 28, 2024 CTDI: vol (mGy):57.6 DLP: (mGycm): 1284 Technique: Multiple CT axial sections of the brain have been obtained, 5 mm slice thickness. Contrast has not been administered. 2-D sagittal, coronal reconstructions have been obtained Low dose protocols were performed. One or more of the following dose reduction techniques were used; automated exposure control, adjustment of the mA and/or KV according to patient size, use of iterative reconstruction technique. Findings: No significant ventricular enlargement. Again noted encephalomalacia in the left frontal lobe Old infarct right cerebellar hemisphere Intra-axial or extra-axial hemorrhage density is not seen. No mass effect or midline shift Basal cisterns are not remarkable. Fourth ventricle is midline. Cranial vault intact. Impression: Negative for acute hemorrhage, mass effect or midline shift Old infarcts as above Advise clinical correlation and follow-up accordingly
[2024-07-21 15:47] VITALS: BP 118/78; PULSE 70
[2024-07-21] MEDS: Furosemide 40 MG TABLET PO (15:47)
[2024-07-21] MEDS: HYDROcodone/APAP 5/325 TABLET 1 TAB PO (15:47)
[2024-07-21 17:00] VITALS: BP 110/65; PULSE 65; TEMP 36.6; O2SAT 95
== END 2024-07-21 18:01 | disposition home or self-care (01) ==
PROVIDERS: Nurse Practitioner Family; Emergency Provider Emergency Medicine
DX: I13.0 Hypertensive heart and chronic kidney disease with heart failure and stage 1 through stage 4 chronic kidney disease, or unspecified chronic kidney disease (principal); I50.9 Heart failure, unspecified; E78.5 Hyperlipidemia, unspecified; R07.9 Chest pain, unspecified; R60.0 Localized edema
CPT/HCPCS: 36415; 70450; 71046; 80053; 81001; 83735; 83880; 84484; 85025; 85610; 85730; 93005; 99284; A9270

== ENCOUNTER 2024-07-23 08:17 | Inpatient (IN) | payer OTHER, SELFPAY ==
[2024-07-23] VITALS (15 sets, daily range): BP systolic 104–129; BP diastolic 65–81; PULSE 70–95; RESP 20–22; TEMP 36.4–36.7; O2SAT 94–100; BMI 33.2; BMI 33.4
--- NOTE | 2024-07-23 09:01 | EDRME_ITS ---
Rapid Medical Screening Exam [facility] Arrival date/time: 07/23/24 08:17 Chief Complaint: Shortness of Breath/Dyspnea Vital signs: Vital Signs Temperature 98.0 F 07/23/24 08:33 Pulse Rate 71 07/23/24 08:33 Respiratory Rate 20 07/23/24 08:33 Blood Pressure 109/66 07/23/24 08:33 Pulse Oximetry (%) 97 07/23/24 08:33 Oxygen Delivery Method Room Air 07/23/24 08:33 [facility] Narrative: 74-year-old patient presents emergency department with complaint of shortness of breath and bilateral lower leg swelling. Patient was seen here 2 days ago for same complaints.
--- NOTE | 2024-07-23 09:07 | EKG_ITS ---
[facility] Test Date: 2024-07-23 Pat Name: MEREDITH AYALA Department: Room: - Gender: Male [employer] Operator: : 1950 Requested By: Best Cadena Order Number: [id number] Reading MD: Best Cadena Measurements Intervals Mayo Rate: 79 P: -34 OR: 155 QRS: 185 QRSD: 178 T: -2 QT: 442 QTc: 508 Interpretive Statements ELECTRONIC VENTRICULAR PACEMAKER ABNORMAL RHYTHM ECG Compared to ECG 07/10/2024 22:40:14 No significant changes /store/S0/[id number].pdf
--- NOTE | 2024-07-23 09:07 | XR_ITS ---
Examination: PA lateral chest 2 views Technique: Upright PA lateral chest 2 views Exam date and time: July 23, 2024 0911 hrs. Comparison July 21, 2024 Indication: Shortness of breath today Findings: Mild to moderate CHF Moderate enlargement cardiac contour Prominent vascular congestion including central vascular engorgement Perihilar basilar edema Cardiac leads satisfactory position Impression: Mild to moderate CHF
[2024-07-23] MEDS: FUROSEMIDE INJ 10 MG/ML 4ML VIAL 40 MG IVP (09:42)
[2024-07-23] MEDS: ALBUTEROL/IPRATROPIUM (Duoneb) RT SOL 3 ML NEBU INH (09:50)
[2024-07-23 10:02] LABS: Basophils # (Auto) 0.1 Thou/mm3 (0.0-0.2); Basophils % (Auto) 1 % (0-2.5); Eosinophils # (Auto) 0.3 Thou/mm3 (0.0-0.5); Eosinophils % (Auto) 3 % (0-10); Hematocrit 40.6 % (41.0-53.0); Hemoglobin 12.4 g/dL (13.5-16.0); Immature Granulocytes % (Auto) 1 % (0-0); Immature Granulocytes Auto 0.05 Thou/mm3 (0.00-0.00); Lymphocytes % (Auto) 10 % (10-50); Mean Corpuscular HGB Conc 30.5 g/dl (31.0-37.0); Mean Corpuscular Hemoglobin 29.9 pg (25.0-35.0); Mean Corpuscular Volume 98 fL (80-100); Monocytes # (Auto) 0.7 Thou/mm3 (0.0-0.8); Monocytes % (Auto) 7 % (0-12); Neutrophils # (Auto) 8.1 Thou/mm3 (1.8-7.7); Neutrophils % (Auto) 79 % (37-80); Nucleated Red Blood Cell % 0 /100 WBC (0); Platelet Count 128 Thou/mm3 (140-440); Red Blood Count 4.15 Miln/mm3 (4.50-5.90); White Blood Count 10.2 Thou/mm3 (3.8-10.6)
[2024-07-23 10:11] LABS: Alanine Aminotransferase 38 U/L (10-49); Albumin, Serum 4.1 gm/dL (3.4-4.8); Albumin/Globulin Ratio 1.6 (1.2-2.2); Alkaline Phosphatase 115 U/L (46-116); Anion Gap 7 (7-16); Aspartate Amino Transferase 31 U/L (0-34); BUN/Creatinine Ratio 19 Ratio (12-20); Bilirubin,Total 1.1 mg/dL (0.3-1.2); Blood Urea Nitrogen 37 mg/dL (9-23); Calcium 9.1 mg/dL (8.3-10.6); Calcium (Corrected) 9.1 mg/dL (8.5-10.1); Chloride 105 mMol/L (98-107); Creatinine (Component) 1.9 mg/dL (0.6-1.3); Estimated Creatinine Clearance 38.8 mL/min (>60); Globulin 2.6 gm/dL (2.3-3.5); Glucose 105 mg/dL (74-106); Lipase 27 U/L (12-53); Osmolality,Calculated 295 (275-295); Potassium 4.4 mMol/L (3.4-5.1); Sodium 144 mMol/L (136-145); Total Protein 6.7 gm/dL (5.7-8.2); eGFR 37 See Note
[2024-07-23 10:12] LABS: Troponin I 0.074 ng/mL (0.0-0.045)
[2024-07-23 10:33] LABS: B-Type Natriuretic Peptide > 3280 pg/mL (0-100)
--- NOTE | 2024-07-23 11:00 | EDNOTE_ITS ---
ED SOB =RME/HPI General Chief Complaint: Shortness of Breath/Dyspnea Stated Complaint: SOB, cough since last night Time Seen by Provider: 07/23/24 10:58 Arrival date/time: 07/23/24 08:17 RME / HPI RME / HPI Narrative: 74-year-old patient presents emergency department with complaint of shortness of breath and bilateral lower leg swelling. Patient was seen here 2 days ago for same complaints. DR. ESQUIVEL MAIN ED EVALUATION: 74 year old male with past medical history significant for pacemaker, hyperlipidemia, hypertension, and CHF presents to the Emergency Department with complaint of shortness of breath. Associated symptoms include leg swelling, a cough, and diarrhea. Patient denies any of the following: fevers, chills, chest pain, or any other symptoms at this time. Related Data Home Medications ?Medication ?Instructions ?Recorded ?Confirmed albuterol sulfate 90 mcg/actuation 2 puff inhalation Q6H PRN Wheezing 10/09/18 07/11/24 aerosol inhaler (ProAir HFA) aspirin 81 mg capsule 81 mg PO QDAY 04/25/24 07/11/24 atorvastatin 80 mg tablet 40 mg PO HS 04/25/24 07/11/24 empagliflozin 10 mg tablet 10 mg PO QDAY 04/25/24 07/11/24 sacubitril 24 mg-valsartan 26 mg 0.5 tab PO BID 04/25/24 07/11/24 tablet sitagliptin 25 mg tablet 25 mg PO DAILY 07/07/24 07/11/24 Previous Rx's ?Medication ?Instructions ?Recorded metoprolol succinate 25 mg 25 mg PO QDAY #30 tabs 07/10/24 tablet,extended release 24 hr bumetanide 1 mg tablet 1 mg PO BID #30 tabs 07/13/24 Allergies Allergy/AdvReac Type Severity Reaction Status Date / Time No Known Drug Allergies Allergy Unknown Verified 07/21/24 08:55 Review of Systems Review of Systems Systems Reviewed: All systems reviewed, normal except as documented Narrative Review of Systems: GEN: No fever, no chills, no weight loss, + leg swelling EYES: No discharge, no visual changes, no pain HEENT: No ear pain, no congestion, no sore throat PULM: + shortness of breath, + cough CV: No chest pain, no dyspnea on exertion, no palpitations GI: No nausea, no vomiting, + diarrhea, no pain, no constipation : No frequency, no urgency and no dysuria MUSC/SKEL: No joint pain, no back pain SKIN: No rash PSYCH: No hallucinations, no depression HEME/LYMPH: No easy bleeding or bruising tendencies NEURO: No weakness, no headache Past Medical History Social History SMOKING STATUS: Never smoker SUBSTANCE USE: does not use ALCOHOL: Never ED Exam Narrative Physical exam: GENERAL APPEARANCE: Well hydrated, well nourished. Hard of hearing. VITALS: All vitals were reviewed and the pulse ox is 95% on 2 L/min via a nasal cannula and with a little exertion it comes down to 88% HEENT: Normocephalic, atramatic, EOMI, EACs are patent. There is no bulge or retraction. Throat without erythema or exudate. Moist oromucosa. No jaundice NECK: Supple, no JVD or bruits. CARDIOVASCULAR: Heart regular without S3-S4 or murmur. No rubs or gallops. LUNGS/CHEST: Tachypneic. ABDOMEN: Soft, nontender, with normal bowel sounds. No pulsatile masses. No rebound, rigidity, or guarding. No incarcerated hernia. Normal inspection and palpation. EXTREMITIES: There is 1+ pitting edema. SKIN: Warm and dry without rashes. Normal inspection. MUSCULOSKELETAL: No gross deformity, full ROM all extremities. Normal inspection. NEURO: Alert and oriented x3. Cranial nerves II through XII grossly intact. There are no other motor or sensory deficits noted. PSYCHIATRIC: Normal mood and affect. No psychosis. Course Quality Measures none Orders Category Date Time Status Estate Planning Paralegal Q4H START 00 Care 07/23/24 11:09 Active EKG (ED ONLY) *Do not use* NOW Care 07/23/24 09:07 Completed EKG (ED Only) Stat Exams 07/23/24 09:07 Draft XR chest 2V Stat Exams 07/23/24 09:07 Completed B-Type Natriuretic Peptide Stat Lab 07/23/24 09:30 Completed CBC Stat Lab 07/23/24 09:30 Completed Comprehensive Metabolic Panel Stat Lab 07/23/24 09:30 Completed Lipase Stat Lab 07/23/24 09:30 Completed Troponin I Stat Lab 07/23/24 09:30 Completed Albuterol/Ipratr Rt Kayleigh [Duoneb Rt Kayleigh] Med 07/23/24 09:07 Discontinued 3 ml INH X1 ONE Aspirin Med 07/23/24 11:09 Discontinued 325 mg PO X1 ONE Furosemide Inj [Lasix Inj] Med 07/23/24 09:07 Discontinued 40 mg IVP X1 ONE Nitroglycerin Oint 2% [Nitro-paste Oint 2%] Med 07/23/24 11:09 Discontinued 1 inch TOP X1 ONE Vital Signs Vital signs: Vital Signs Temperature 98.0 F 07/23/24 08:33 Pulse Rate 71 07/23/24 08:33 Respiratory Rate 20 07/23/24 08:33 Blood Pressure 109/66 07/23/24 08:33 Pulse Oximetry (%) 97 07/23/24 08:33 Oxygen Delivery Method Room Air 07/23/24 08:33 Shortness of Breath / Dyspnea MDM Narrative MDM Narrative:: I, Ayanna Samuel, am scribing for and in the presence of Dr. Esquivel. CBC is negative. CMP remarkable for creatinine of 1.9. The patient does have a history of chronic kidney disease. BNP is more than 3000. Troponin is elevated at 0.074. O2 saturation was 88% on room air on minimal exertion. He is tachypneic to about 20 to 30 breaths/min. O2 saturation went up to 94% on 2 L nasal cannula. The patient receiving aspirin and Nitropaste by me. 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 And he is beginning to diurese. He denies any chest pain. Chest x-ray by me: Evidence of congestive heart failure. Heart is enlarged. Mediastinum normal. Pacemaker is in place. Normal bones. Twelve-lead EKG at 9:36 AM and interpreted by me: Pacemaker rhythm. Heart rate of [address] segment elevation. No ST segment depression. No PVC. No STEMI. Regular rate and rhythm. 11:15 AM, I spoke to and discussed with Dr. Early, resident of Dr. Wright, hospitalist on-call. He agreed to admit the patient for further evaluation and treatment. Thank you very much. Critical care time is approximately 35 minutes excluding any procedure. The high probability of sudden, clinically significant deterioration in the patient?s condition required the highest level of my preparedness to intervene urgently. The services I provided to this patient were to treat and/or prevent clinically significant deterioration. Services included the following: chart data review, reviewing nursing notes and/or old charts, documentation time, lactation consultant collaboration regarding findings and treatment options, medication orders and management, direct patient care, vital sign assessments and ordering, interpreting and reviewing diagnostic studies and lab tests. Aggregate critical care time includes only time during which I was engaged in work directly related to the patient?s care, as described above, whether at bedside or elsewhere in the Emergency Department. It did not include time spent performing other reported procedures or the services of residents, students, nurses or physician assistants. Patient data External records reviewed:: [facility] previous records (Reviewed last ED visit dated 07/21/24, discharged with the following: Bilateral leg edema.) Clinical information provided by:: patient Social determinants that could affect healthcare access:: none Patient has the following chronic illnesses:: Pacemaker, hyperlipidemia, hypertension, and CHF. How is presenting disease/condition affected by chronic disease/condition?: exacerbated by Evaluation data The following diagnostics were reviewed and interpreted by me:: lab results, radiology exam(s) and EKG tracing(s) Lab and/or radiology exams considered but not ordered:: none Interpretation Summary: Procedure(s): XR chest 2V Accession Number(s): [id number] cc: Andrew Eddy MD; Best Hicks PA-C~ Examination: PA lateral chest 2 views Technique: Upright PA lateral chest 2 views Exam date and time: July 23, 2024 0911 hrs. Comparison July 21, 2024 Indication: Shortness of breath today Findings: Mild to moderate CHF Moderate enlargement cardiac contour Prominent vascular congestion including central vascular engorgement Perihilar basilar edema Cardiac leads satisfactory position Impression: Mild to moderate CHF Dictated By: Andrew Eddy MD Medications / Prescriptions Medications or Prescriptions considered but not ordered:: none Medication administrations:: Medication Administration History Discontinued Medications Albuterol/Ipratropium (Albuterol/Ipratropium (Duoneb) Rt Kayleigh 3 Ml Nebu) 3 ml INH X1 ONE Stop: 07/23/24 09:08 Last Admin: 07/23/24 09:50 Dose: 3 ml Documented By: EV Aspirin (Aspirin 325 Mg Tablet) 325 mg PO X1 ONE Stop: 07/23/24 11:10 Furosemide (Furosemide Inj 10 Mg/Ml 4ml Vial) 40 mg IVP X1 ONE Stop: 07/23/24 09:08 Last Admin: 07/23/24 09:42 Dose: 40 mg Documented By: AM Nitroglycerin (Nitroglycerin Oint 2% 1 Inch Packet) 1 inch TOP X1 ONE Stop: 07/23/24 11:10 see above Consultations Consultation(s) initiated? (list below): Yes Consultation #1 (Physician, Specialty, Details): Discussed test HPI, PMHx, lab, radiology results and/or management with hospitalist. Will admit for further evaluation and management. Accepts patient for admission. Time: 11:13 Diagnosis Shortness of Breath Differential Diagnosis: acute exacerbation of chronic obstructive airways disease, congestive heart failure and community acquired pneumonia Most likely diagnosis given after review of the tests above:: Congestive heart failure Elevated troponin Chronic kidney disease Admission Indicated Admission indicated?: indicated Admission Request Was there a request for admission?: Yes Admission Attestation Admission request attestation: Discussed case with [] from Hospitalist service regarding admission. Discussed patients ED course, exam findings, labs, and radiology results. The Hospitalist [agrees,declines] to accept the patient for admission. Disposition Plan Disposition Plan: Admit Discharge Plan Plan Patient Disposition: Admit Acute Care w/in Hospital Disposition Comment: Stable for admit Prescriptions/Referrals Prescriptions/Med Rec: No Action albuterol sulfate [ProAir HFA] 90 mcg/actuation Hfa Aerosol Inhaler 2 puff INHALATION Q6H PRN (Reason: Wheezing) sitagliptin 25 mg Tablet 25 mg PO DAILY metoprolol succinate 25 mg Tablet Extended Release 24 Hr 25 mg PO QDAY Qty: 30 0RF atorvastatin 80 mg Tablet 40 mg PO HS empagliflozin 10 mg Tablet 10 mg PO QDAY sacubitril-valsartan 24-26 mg Tablet 0.5 tab PO BID Hold Instructions: Resume on 06/01/24. Restart after seeing your PCP or Dr. Horta, depending on your BP. aspirin 81 mg Capsule 81 mg PO QDAY bumetanide 1 mg Tablet 1 mg PO BID Qty: 30 0RF Problem List Clinical Impression: CHF (congestive heart failure), CKD (chronic kidney disease), Elevated troponin Patient/Caregiver Discharge Instructions Print Language: Romanian Stand Alone Forms: [facility] Award Info., Patient Portal Info Letter
--- NOTE | 2024-07-23 11:11 | PC.NURSE ---
Pt reports that he his having some nausea and SOB, with a cough. Was given lasix IVP in RME, pt reports since receiving it he has gone to the BR 3x however did not measure his output.
[2024-07-23] MEDS: Aspirin 325 MG TABLET PO (11:24)
[2024-07-23] MEDS: NITROGLYCERIN OINT 2% 1 INCH PACKET TOP (11:24)
--- NOTE | 2024-07-23 13:20 | PD.RESHP ---
Documentation for date of: 07/23/24 [facility] History of Present Illness History of present illness: Mr. Rudd is a 74 year old male with a past medical history of CHF Systolic Dysfunction EF 10-15% (04/25/2024) , HTN, HLD, CKD, Chronic Obstructive Pulmonary Disease secondary to 20+ pack year, obstructive sleep apnea, hx. of CVA, history of methamphetamine use who presents to the ED multiple times in the last 30 days with shortness of breath. Pt has multiple admissions of similar episodes of increasingly shortness of breath at rest and exertion. Pt states he is unable to lay flat or sleep due to his symptoms. He also complains of a productive cough with yellow phlegm for the past 2 days. Patient has end-stage heart failure with EF of 10-15%; Pt underwent CRTD placement approximately [address] Horta, however denies improvement of symptoms. Pt also recent finished a course of antibiotics for pneumonia. Pt denies fever, chills, N/V or abdominal pain but this morning Pt started having watery diarrhea without melena or hematochezia. Patient denies chest pain/tightness or palpitations. ED course: Inital vitams are stable, saturating at 97% on 2L of O2, CBC and CMP is unremarkable except Cr 1.9, BUN 37, eGFR 37, troponin 0.04, BNP 3280 Images: CXR- Mild to moderate CHF, Moderate enlargement cardiac contour, Prominent vascular congestion including central vascular engorgement, Perihilar basilar edema EKG- Ventricular Pacemaker In the ED patient received Lasix 40 Mg IVP x 1, topical nitroglycerin, aspirin 325 x 1, DuoNebs x 1 PMH: CHF, HLD, HTN PSH: Left Shoulder surgery SH: Smoker >20+ with history of smoking 1 pack per day, history of substance use disorder Allergies: NKDA Medication: Carvidalol Metoprolol 25 mg Qday, Entrestro Atorvastatin, Bumex 1 mg BID, : Noncontributory Social History: Smoker >20+ with history of smoking 1 pack per day, history of substance use disorder, denies alcohol Review of Systems Review of Systems Systems Reviewed: All systems reviewed, normal except as documented Exam Vital Signs Temp Pulse Resp BP Pulse Ox O2 Del Method O2 Flow Rate 97.8 F 82 22 H 117/70 97 Nasal Cannula 2 07/23/24 12:33 07/23/24 12:33 07/23/24 12:33 07/23/24 12:33 07/23/24 12:33 07/23/24 12:33 07/23/24 12:33 Narrative Exam GENERAL: A&Ox3 but somnolent, Not in acute distress but unable to lay flat due to shortness of breath NEURO: no focal neurological deficits HEENT: Atraumatic, Normocephalic. mucous membranes moist. Eyes open, symmetrical, & clear HEART: Normal Heart Sounds LUNGS: Coarse breath sounds with no wheezing or crackles. ABDOMEN: soft, non-distended, non-tender, bowel sounds heard, no guarding or rebound tenderness SKIN: No Rash or ecchymoses EXTREMITIES: BK 1+ edema bilaterally in lower extremities, tenderness, able to move all 4 extremities, pedal pulses palpated Results: Labs 07/23/24 09:30 07/23/24 09:30 Labs: Short CBC 07/23/24 Range/Units 09:30 WBC 10.2 (3.8-10.6) Thou/mm3 Hgb 12.4 L (13.5-16.0) g/dL Hct 40.6 L (41.0-53.0) % Plt Count 128 L (140-440) Thou/mm3 BMP 07/23/24 09:30 Sodium 144 Potassium 4.4 Chloride 105 Carbon Dioxide 32.0 H BUN 37 H Creatinine 1.9 H Glucose 105 Calcium 9.1 Cardiac Enzymes 07/23/24 Range/Units 09:30 Troponin I 0.074 H* (0.0-0.045) ng/mL Liver Function 07/23/24 Range/Units 09:30 Total Bilirubin 1.1 (0.3-1.2) mg/dL AST 31 (0-34) U/L ALT 38 (10-49) U/L Alkaline Phosphatase 115 (46-116) U/L Albumin 4.1 (3.4-4.8) gm/dL Quality Measures Quality Measures none Advance care planning discussed with:: patient Medications Home Medications and Allergies Home Medications ?Medication ?Instructions ?Recorded ?Confirmed ?Type albuterol sulfate 90 mcg/actuation 2 puff inhalation Q6H PRN Wheezing 10/09/18 07/11/24 History aerosol inhaler (ProAir HFA) aspirin 81 mg capsule 81 mg PO QDAY 04/25/24 07/11/24 History atorvastatin 80 mg tablet 40 mg PO HS 04/25/24 07/11/24 History empagliflozin 10 mg tablet 10 mg PO QDAY 04/25/24 07/11/24 History sacubitril 24 mg-valsartan 26 mg 0.5 tab PO BID 04/25/24 07/11/24 History tablet sitagliptin 25 mg tablet 25 mg PO DAILY 07/07/24 07/11/24 History Allergies Allergy/AdvReac Type Severity Reaction Status Date / Time No Known Drug Allergies Allergy Unknown Verified 07/21/24 08:55 Visit Medications Acetaminophen (Acetaminophen 325 Mg Tablet) 650 mg PO Q6H PRN PRN Reason: Fever >101.5 Stop: 08/22/24 13:10 Enoxaparin Sodium (Enoxaparin Sod Inj 40 Mg/0.4 Ml Syringe) 40 mg SC QDAY PINKY Stop: 08/07/24 08:59 Ondansetron HCl (Ondansetron Inj 2 Mg/Ml Inj 2 Ml) 4 mg IV Q6H PRN; Protocol PRN Reason: NAUSEA OR VOMITING Stop: 08/22/24 13:10 Discontinued Medications Albuterol/Ipratropium (Albuterol/Ipratropium (Duoneb) Rt Kayleigh 3 Ml Nebu) 3 ml INH X1 ONE Stop: 07/23/24 09:08 Last Admin: 07/23/24 09:50 Dose: 3 ml Aspirin (Aspirin 325 Mg Tablet) 325 mg PO X1 ONE Stop: 07/23/24 11:10 Last Admin: 07/23/24 11:24 Dose: 325 mg Furosemide (Furosemide Inj 10 Mg/Ml 4ml Vial) 40 mg IVP X1 ONE Stop: 07/23/24 09:08 Last Admin: 07/23/24 09:42 Dose: 40 mg Nitroglycerin (Nitroglycerin Oint 2% 1 Inch Packet) 1 inch TOP X1 ONE Stop: 07/23/24 11:10 Last Admin: 07/23/24 11:24 Dose: 1 inch Assessment & Plan Plan Mr. Rudd is a 74 year old male with a past medical history of CHF Systolic Dysfunction EF 10-15% (04/25/2024) , HTN, HLD, CKD, Chronic Obstructive Pulmonary Disease secondary to 20+ pack year, obstructive sleep apnea, hx. of CVA, history of methamphetamine use who presents to the ED multiple times in the last 30 days with shortness of breath. Pt has multiple admissions of similar episodes of increasingly shortness of breath at rest and exertion. Pt states he is unable to lay flat or sleep due to his symptoms. He also complains of a productive cough with yellow phlegm for the past 2 days. Patient has end-stage heart failure with EF of 10-15%; Pt underwent CRTD placement approximately [address] Horta, however denies improvement of symptoms. #Acute Respiratory Failure secondary to #CHF exacerbation in the setting of #HFrEF (EF 10-15%) #Dilated Cardiomyopathy -Presenting with shortness of breath and lower extremity pitting edema +1 -BNP chronically elevated (3280) -ECHO from 04/25/2024 shows: Dilated cardiomyopathy with markedly dilated LV end-diastolic diameter 7.5 cm with severe global hypokinesis and severe systolic dysfunction left ventricle ejection fraction approximately 10-15%. Moderate RV dilatation. Moderate RV dysfunction. Estimated RVSP 50mmHg. Severe biatrial dilatation. The ascending aorta is moderately dilated. 4.2cm. Mild mitral valve regurgitation. Mild aortic valve regurgitation Mild to moderate tricuspid valve regurgitation. IVC dilated. 2.5cm. Pleural effusion present. Plan: -DuoNebs as needed -Bumex 2 mg IV Qday -Hold guideline directed medical therapy due to soft BP -maintain K>4 and Mg >2 -Fluid Restriction 1000ml -Strict Ins and Outs - goal is net negative of 1500 #CKD III, stable -Likely prerenal azotemia 2/2 to CHF -Patient has a past medical history of chronic kidney disease. -Creatinine 1.9, eGFR 37, BUN 37- appears to be baseline Plan: -Renally dose medication -Avoid nephrotoxins -Follow-up with daily labs #Essential hypertension -Patient has history of hypertension but unable to recall if he takes any medications or not. Patient's daughter Lilian is unreachable and daughter at bedside does not know patient's list of medications -Will hold antihypertensive medications since patient's blood pressure is soft -Will continue to monitor blood pressure closely and will add antihypertensive if needed #CVA #HLD -Patient has a past medical history of stroke with no motor function deficits -ASCVD Risk-31% risk of cardio vascular event in 10 years High intensity statin Plan: -Aspirin 81 mg QDay -Holding Atorvastatin 80 mg HS - restart when appropriate #Tobacco Dependence #Polysubstance-use disorder -will consider nicotine patch if Pt's have increase symptoms of cravings Disposition: telemetry for AHRF in the setting of CHF DVT Prophylaxis: enoxaparin 40mg Qdaily GI Prophylaxis: N/a Diet: Cardiac Diet with fluid restriction of 1000ml Code status: Full Assessment and plan discussed with my attending physician Dr. Beverly Su (PGY-1)- Internal medicine resident
--- NOTE | 2024-07-23 13:47 | ECHO_ITS ---
Transthoracic Echo Report Ht (in): 67 Wt (lb): 212 Exam Location: Portable Status: Preadmit Supervisor Accounts Receivable: Melissa Vázquez Indications: Procedure Performed: BP: 130 / 72 HR: 80 Technical Quality: Fair MEASUREMENTS (Male / Female) Normal Values 2D ECHO LV Diastolic Diameter PLAX 6.8 cm 4.2 - 5.9 / 3.9 - 5.3 cm LV Systolic Diameter PLAX 6.2 cm IVS Diastolic Thickness 1.0 cm 0.6 - 1.0 / 0.6 - 0.9 cm LVPW Diastolic Thickness 1.0 cm 0.6 - 1.0 / 0.6 - 0.9 cm LV Relative Wall Thickness 0.3 LVOT Diameter 2.6 cm LA Volume Index 43.5 cm?/m? 16 - 28 cm?/m? Ascending Aorta Diameter 4.1 cm M-MODE Aortic Root Diameter MM 3.2 cm LA Systolic Diameter MM 4.5 cm LA Ao Ratio MM 1.4 MV E Point Septal Separation 1.6 cm AV Cusp Separation MM 2.6 cm DOPPLER AV Peak Velocity 149.0 cm/s AV Peak Gradient 8.9 mmHg AV Mean Gradient 4.0 mmHg AV Velocity Time Integral 21.1 cm LVOT Peak Velocity 62.8 cm/s LVOT Peak Gradient 1.6 mmHg LVOT Velocity Time Integral 9.8 cm LVOT Cardiac Index 1911.5 cm?/min?m? AV Area Cont Eq vti 2.5 cm? AV Area Cont Eq pk 2.2 cm? MV Peak Velocity 116.0 cm/s MV Peak Gradient 5.4 mmHg MV Mean Velocity 51.0 cm/s MV Mean Gradient 1.0 mmHg MV Area PHT 4.4 cm? MR Peak Velocity 358.0 cm/s MR Peak Gradient 51.3 mmHg Mitral E Point Velocity 85.9 cm/s Mitral A Point Velocity 46.1 cm/s Mitral E to A Ratio 1.9 LV E' Lateral Velocity 4.8 cm/s Mitral E to LV E' Lateral Ratio 17.9 LV E' Septal Velocity 3.1 cm/s Mitral E to LV E' Septal Ratio 27.3 TR Peak Velocity 219.7 cm/s TR Peak Gradient 19.3 mmHg FINDINGS Left Ventricle Dilated left ventricle. Severe global hypokinesis, [place] apex apical lateral and septal. The ej ection fraction is visually estimated at 15-20%. Right Ventricle The right ventricle is moderately dilated. systolic dysfunction. The estimated right ventricular sy stolic pressure, 40mmHg. RAP 15. Pacing wire present. Left Atrium The left atrium is moderately dilated. Right Atrium The right atrium is moderately dilated. Atrial Septum The interatrial septum appears normal with no evidence of a shunt. Aorta The ascending aorta mildly dilated. 4.1cm. Mitral Valve The mitral valve is normal by two-dimensional, color flow and Doppler interrogation. There is mild mitral valve regurgitation. Aortic Valve The aortic valve is trileaflet and normal by two-dimensional, color flow and Doppler interrogation. There is trace aortic valve regurgitation. Tricuspid Valve The tricuspid valve is normal by two-dimensional, color flow and Doppler interrogation. There is mil d tricuspid valve regurgitation. Pulmonic Valve There is no significant pulmonic valve regurgitation. Vessels The pulmonary artery appears normal. The inferior vena cava pulmonary and hepatic veins appear dilat ed. Pericardium The pericardium is normal by two-dimensional imaging. There is no significant pericardial effusion. CONCLUSIONS Dilated cardiomyopathy. severe global hypokinesis . Estimated EF 15-20% Moderate RV dilatation. RV dysfunction. Estimated RVSP 40mmHg Pacing wire present. Moderate biatrial dilatation. The ascending aorta mildly dilated. 4.1cm. Mild MR, TR. IVC dilated. Rosalia Rodarte (Electronically Signed) Final Date: 24 July 2024 13:42
--- NOTE | 2024-07-23 14:42 | PC.NURSE ---
Pt. up to RR with walker to have a BM.
[2024-07-23] MEDS: BUMETANIDE INJ 0.25 MG/ML VIAL 4 ML 2 MG IVP ×2 (15:00→21:08)
[2024-07-24] VITALS (12 sets, daily range): BP systolic 105–130; BP diastolic 64–78; PULSE 63–82; RESP 18–28; TEMP 36.1–37.3; O2SAT 95–97
--- NOTE | 2024-07-24 04:33 | PC.NURSE ---
Dr. Lock notified regarding patient having 6 PVCs.
[2024-07-24 05:49] LABS: Basophils # (Auto) 0.1 Thou/mm3 (0.0-0.2); Basophils % (Auto) 1 % (0-2.5); Eosinophils # (Auto) 0.5 Thou/mm3 (0.0-0.5); Eosinophils % (Auto) 4 % (0-10); Hematocrit 38.9 % (41.0-53.0); Hemoglobin 12.4 g/dL (13.5-16.0); Immature Granulocytes % (Auto) 0 % (0-0); Immature Granulocytes Auto 0.03 Thou/mm3 (0.00-0.00); Lymphocytes # (Auto) 1.4 Thou/mm3 (1.0-4.8); Lymphocytes % (Auto) 13 % (10-50); Mean Corpuscular HGB Conc 31.9 g/dl (31.0-37.0); Mean Corpuscular Hemoglobin 30.3 pg (25.0-35.0); Mean Corpuscular Volume 95 fL (80-100); Monocytes # (Auto) 0.7 Thou/mm3 (0.0-0.8); Monocytes % (Auto) 7 % (0-12); Neutrophils % (Auto) 75 % (37-80); Nucleated Red Blood Cell % 0 /100 WBC (0); Platelet Count 138 Thou/mm3 (140-440); RDW Standard Deviation 58.3 fL (35.1-43.9); Red Blood Count 4.09 Miln/mm3 (4.50-5.90); White Blood Count 10.7 Thou/mm3 (3.8-10.6)
[2024-07-24 06:19] LABS: Alanine Aminotransferase 32 U/L (10-49); Albumin, Serum 4.1 gm/dL (3.4-4.8); Albumin/Globulin Ratio 1.6 (1.2-2.2); Alkaline Phosphatase 116 U/L (46-116); Anion Gap 8 (7-16); Aspartate Amino Transferase 11 U/L (0-34); BUN/Creatinine Ratio 21 Ratio (12-20); Bilirubin,Total 1.1 mg/dL (0.3-1.2); Blood Urea Nitrogen 35 mg/dL (9-23); Calcium 8.9 mg/dL (8.3-10.6); Calcium (Corrected) 8.9 mg/dL (8.5-10.1); Carbon Dioxide 28.8 mMol/L (20.0-31.0); Chloride 106 mMol/L (98-107); Creatinine (Component) 1.7 mg/dL (0.6-1.3); Estimated Creatinine Clearance 43.5 mL/min (>60); Globulin 2.6 gm/dL (2.3-3.5); Glucose 109 mg/dL (74-106); Magnesium 2.6 mg/dL (1.6-2.6); Osmolality,Calculated 293 (275-295); Phosphorous 3.1 mg/dL (2.4-5.1); Potassium 4.3 mMol/L (3.4-5.1); Sodium 143 mMol/L (136-145); Total Protein 6.7 gm/dL (5.7-8.2); eGFR 42 See Note
[2024-07-24] MEDS: BUMETANIDE INJ 0.25 MG/ML VIAL 4 ML 2 MG IVP ×3 (08:57→21:11)
[2024-07-24] MEDS: ENOXAPARIN SOD INJ 40 MG/0.4 ML SYRINGE SC (08:57)
[2024-07-24] MEDS: ASPIRIN EC 81 MG TABEC PO (08:57)
--- NOTE | 2024-07-24 08:57 | PC.NURSE ---
walked in to pt room, pt had just received 400ml of water, pt finishing water only aprox 100 ml left. explained to pt that was meant for all day, pt stated he knew and that he was thirsty. educated pt on md order of 1000ml fluid restriction. at bedside
--- NOTE | 2024-07-24 09:09 | PC.SS ---
Follow up note: Is on IV diuresis.
--- NOTE | 2024-07-24 09:52 | PD.IDPROG ---
Subjective Subjective Interval history: here for chf w/o fever. no abx. no overt infection noted. Exam Vital Signs Temp Pulse Resp BP Pulse Ox O2 Del Method O2 Flow Rate 97.6 F 80 19 130/72 96 Nasal Cannula 2 07/24/24 08:00 07/24/24 08:57 07/24/24 08:00 07/24/24 08:57 07/24/24 08:00 07/24/24 08:00 07/24/24 08:00 Narrative Exam see dictation Objective - Internal Medicine Labs 07/24/24 05:15 07/24/24 05:15 Labs: Laboratory Results - last 24 hr 07/23/24 07/24/24 09:30 05:15 WBC 10.2 10.7 H RBC 4.15 L 4.09 L Hgb 12.4 L 12.4 L Hct 40.6 L 38.9 L MCV 98 95 MCH 29.9 30.3 MCHC 30.5 L 31.9 RDW Std Deviation 61.0 H 58.3 H Plt Count 128 L 138 L Neut % (Auto) 79 75 Lymph % (Auto) 10 13 [place] % (Auto) 7 7 Eos % (Auto) 3 4 Baso % (Auto) 1 1 Neut # (Auto) 8.1 H 8.0 H Lymph # (Auto) 1.0 1.4 [place] # (Auto) 0.7 0.7 Eos # (Auto) 0.3 0.5 Baso # (Auto) 0.1 0.1 Immature Gran # (Auto) 0.05 H 0.03 H Absolute Nucleated RBC 0.00 0.00 Immature Gran % 1 H 0 Nucleated RBC % 0 0 Sodium 144 143 Potassium 4.4 4.3 Chloride 105 106 Carbon Dioxide 32.0 H 28.8 Anion Gap 7 8 BUN 37 H 35 H Creatinine 1.9 H 1.7 H Estim Creat Clear Calc 38.8 L 43.5 L eGFR 37 L 42 L BUN/Creatinine Ratio 19 21 H Glucose 105 109 H Calculated Osmolality 295 293 Calcium 9.1 8.9 Corrected Calcium 9.1 8.9 Phosphorus 3.1 Magnesium 2.6 Total Bilirubin 1.1 1.1 AST 31 11 ALT 38 32 Alkaline Phosphatase 115 116 Troponin I 0.074 H* B-Natriuretic Peptide > 3280 H* Total Protein 6.7 6.7 Albumin 4.1 4.1 Globulin 2.6 2.6 Albumin/Globulin Ratio 1.6 1.6 Lipase 27 Assessment & Plan A&P Narrative chf, hld htn manage diseases as per others, will see again prn. Time Spent With Patient Time: Total time spent is greater than 50% in coordination of care (as documented) at patient's floor/unit and/or counseling patient:
--- NOTE | 2024-07-24 10:30 | PC.NURSE ---
pt asking for a cup of coffee, no water left in pitcher. pt has now finished drinking 400ml of water. explained to pt he was on a fluid restriction per md order. he had drank 200ml and now the 400 ml. pt adamant he wants another cup of coffee. explained to pt he can had fluids later, he needs to spread his fluid intake since he's now at 600 ml intake. pt yelling at staff stating to just get out of room. nurse left room. noted call light within reach, called to speak to pt to explain fluid restriction order, md to come and speak to pt
--- NOTE | 2024-07-24 12:41 | ESCONSULT_ITS ---
RE: MEREDITH AYALA : 1950 DATE OF CONSULTATION: 07/24/2024 REFERRING PHYSICIAN: Dr. Paul. REASON FOR CONSULTATION: The patient has heart failure. HISTORY OF PRESENT ILLNESS: The patient is here for heart failure. He has hypertension. MEDICAL PROBLEMS: None. ALLERGIES: NONE NOTED. IMMUNIZATIONS: Last tetanus dates to about a year ago at the [place], he is not certain when. He does take a flu shot usually and had one this year. He states he has had a COVID vaccine, but he is not sure how many and does not recall pneumococcal vaccination. FAMILY HISTORY: Unremarkable. SOCIAL HISTORY: He apparently lives with his grandchildren. His daughter lives across the street. He still smokes less than one pack a day. He is on oxygen at home at 2 liters per minute. PHYSICAL EXAMINATION: VITAL SIGNS: On exam, the patient is on oxygen at 2 liters per minute. HEENT: Benign. HEART: Benign. LUNGS: Benign. ABDOMEN: Benign. There was no significant swelling. I am not sure why he was admitted, but he is on no antibiotics and there does not seem to be a need for any at the moment. ASSESSMENT: 1. Heart failure. 2. Hypertension. RECOMMENDATIONS: The patient needs to manage his hypertension. His heart failure is a little bit better. I will check on him again if needed, do not plan a f/u at this time. 07/24/2024 DT: 10:08:44 TT: 11:16:00 Ref: [id number] - TID: [id number] MTDD
--- NOTE | 2024-07-24 12:41 | PC.NURSE ---
pt requesting a drink, explained to pt again that pt had drank 400 ml of fluid during breakfast and that was supposed last him most of his day. pt adamant he needs more fluids. explained pt had drank 200ml during the night and his limit is 1000ml in 24 hours. pt argumentative and talking over staff insisting he needs fluids to drink. proceeds to tell this nurse be quiet and leave I already know that I just want something to drink, just get out . family noted to be at bedside did not speak during interaction
--- NOTE | 2024-07-24 16:47 | ESCONSULT_ITS ---
<Statement entered by Anurag Horta MD - 07/28/24 09:03> I personally evaluated this patient along with resident physician Dr. Ceballos patient is known to me as [employer]AIL[employer]-D implantation cardiomyopathy congestive heart failure ejection fraction of around 15 to 20% slight improvement agree with the treatment plan recommendation IV diuretics aggressive diuresis and will monitor the patient closely with you HPI Data of Consult Requesting Physician: Jadiel Su MD Admitting Provider: Michel Paul MD Attending Provider: Jadiel Su MD Primary Care Provider: Hong Gates Consult Narrative Reason for consult: acute on chronic HFrEF History of present illness: Patient is a 74-year-old male with past medical history significant for HFrEF with ejection fraction 10 to 15% on 04/25/2024 status post COUNTY BAILIFF-D placement in May 2024, hypertension, hyperlipidemia, chronic kidney disease, COPD secondary to smoking history, SEGUNDO, CVA, and methamphetamine use who presented to the ED with severe shortness of breath. Despite getting the [employer] BAILIFF-D placement in May, patient states that his symptoms have not improved significantly. At bedside today, patient states he is able to breathe a lot better. Other than his shortness of breath, patient denies any fever, chills, nausea/vomiting, abdominal pain. Patient is currently on room air, saturating 94%. Cardiology was consulted to assess patient's ejection fraction and current heart failure stage. ED course: Labs remarkable for elevated creatinine of 1.9, BNP 3280. Imaging suggested mild to moderate CHF with moderate enlargement of cardiac contour and vascular congestion. EKG shows a paced rhythm. Past medical history: As mentioned above Past surgical history: Left shoulder surgery Social history: Patient was a smoker for the last 20+ years, history of substance use disorder Allergies: NKDA Medications: Aspirin 81 mg daily, atorvastatin 40 mg p.o. at bedtime, Bumex 1 mg twice daily, medical flow send 10 mg p.o. daily, metoprolol succinate 12.5 mg daily, Entresto 0.5 tabs p.o. twice daily, sitagliptin 5 mg p.o. daily cc:: cc: Jadiel Su MD Exam Vital Signs Temp Pulse Resp BP Pulse Ox O2 Del Method O2 Flow Rate 97.6 F 66 18 105/64 97 Nasal Cannula 2 07/24/24 16:00 07/24/24 16:00 07/24/24 16:00 07/24/24 16:00 07/24/24 16:00 07/24/24 16:00 07/24/24 16:00 Narrative Exam General Appearance: Pt in mild acute distress laying on his left side in bed, on room air. HEENT: NC/AT, no scleral icterus, no conjunctival pallor, MMM Lungs: Coarse breath sounds heard diffusely with no wheezing. CVS: RRR, S1/S2 heard, no murmurs or rubs appreciated, JVD present, 1+ pitting edema bilaterally to mid shins ABD: Soft, non-tender, non-distended, BS + in all 4 quadrants EXT: no deformity/edema/lesions/cyanosis/clubbing, radial pulses 2+ BL, pedal pulses palpated SKIN: Skin exam normal without any rashes. Neuro: A&O x 3. No gross neurological deficits. Motor and sensory grossly intact in B/L UL and LL. Psych: Appropriate mood and affect Results Labs 07/24/24 05:15 07/24/24 05:15 Labs: Short CBC 07/24/24 Range/Units 05:15 WBC 10.7 H (3.8-10.6) Thou/mm3 Hgb 12.4 L (13.5-16.0) g/dL Hct 38.9 L (41.0-53.0) % Plt Count 138 L (140-440) Thou/mm3 BMP 07/24/24 05:15 Sodium 143 Potassium 4.3 Chloride 106 Carbon Dioxide 28.8 BUN 35 H Creatinine 1.7 H Glucose 109 H Calcium 8.9 Liver Function 07/24/24 Range/Units 05:15 Total Bilirubin 1.1 (0.3-1.2) mg/dL AST 11 (0-34) U/L ALT 32 (10-49) U/L Alkaline Phosphatase 116 (46-116) U/L Albumin 4.1 (3.4-4.8) gm/dL Quality Measures Quality Measures none Advance care planning discussed with:: patient Medications Home Medications and Allergies Home Medications ?Medication ?Instructions ?Recorded ?Confirmed ?Type albuterol sulfate 90 mcg/actuation 2 puff inhalation Q6H PRN Wheezing 10/09/18 07/24/24 History aerosol inhaler (ProAir HFA) aspirin 81 mg capsule 81 mg PO QDAY 10/08/24 01/06/25 History atorvastatin 80 mg tablet 40 mg PO HS 04/25/24 07/24/24 History empagliflozin 10 mg tablet 10 mg PO QDAY 04/25/24 07/24/24 History sacubitril 24 mg-valsartan 26 mg 0.5 tab PO BID 04/25/24 07/24/24 History tablet sitagliptin 25 mg tablet 25 mg PO DAILY 07/07/24 07/24/24 History metoprolol succinate 25 mg 12.5 mg PO QDAY 07/24/24 07/24/24 History tablet,extended release 24 hr Allergies Allergy/AdvReac Type Severity Reaction Status Date / Time No Known Drug Allergies Allergy Unknown Verified 07/21/24 08:55 Visit Medications Acetaminophen (Acetaminophen 325 Mg Tablet) 650 mg PO Q6H PRN PRN Reason: Fever >101.5 Stop: 08/22/24 13:10 Albuterol/Ipratropium (Albuterol/Ipratropium (Duoneb) Rt Kayleigh 3 Ml Nebu) 3 ml INH Q4HRRT PRN PRN Reason: SHORTNESS OF BREATH OR WHEEZE Stop: 08/22/24 18:59 Aspirin (Aspirin Ec 81 Mg Tabec) 81 mg PO QDAY [facility] Stop: 08/23/24 08:59 Last Admin: 07/24/24 08:57 Dose: 81 mg Bumetanide (Bumetanide Inj 0.25 Mg/Ml Vial 4 Ml) 2 mg IVP TID [facility] Stop: 08/23/24 13:59 Last Admin: 07/24/24 15:01 Dose: 2 mg Enoxaparin Sodium (Enoxaparin Sod Inj 40 Mg/0.4 Ml Syringe) 40 mg SC QDAY [facility] Stop: 08/07/24 08:59 Last Admin: 07/24/24 08:57 Dose: 40 mg Ondansetron HCl (Ondansetron Inj 2 Mg/Ml Inj 2 Ml) 4 mg IV Q6H PRN; Protocol PRN Reason: NAUSEA OR VOMITING Stop: 08/22/24 13:10 Discontinued Medications Albuterol/Ipratropium (Albuterol/Ipratropium (Duoneb) Rt [place] 3 Ml Nebu) 3 ml INH X1 ONE Stop: 07/23/24 09:08 Last Admin: 07/23/24 09:50 Dose: 3 ml Aspirin (Aspirin 325 Mg Tablet) 325 mg PO X1 ONE Stop: 07/23/24 11:10 Last Admin: 07/23/24 11:24 Dose: 325 mg Bumetanide (Bumetanide Inj 0.25 Mg/Ml Vial 4 Ml) 2 mg IVP BID PINKY Stop: 08/22/24 13:44 Last Admin: 07/24/24 08:57 Dose: 2 mg Furosemide (Furosemide Inj 10 Mg/Ml 4ml Vial) 40 mg IVP X1 ONE Stop: 07/23/24 09:08 Last Admin: 07/23/24 09:42 Dose: 40 mg Nitroglycerin (Nitroglycerin Oint 2% 1 Inch Packet) 1 inch TOP X1 ONE Stop: 07/23/24 11:10 Last Admin: 07/23/24 11:24 Dose: 1 inch Assessment & Plan Plan Patient is a 74-year-old male with past medical history significant for HFrEF with ejection fraction 10 to 15% on 04/25/2024 status post [employer]-D placement in May 2024, hypertension, hyperlipidemia, chronic kidney disease, COPD secondary to smoking history, SEGUNDO, CVA, and methamphetamine use who presented to the ED with severe shortness of breath and admitted for AHRF 2/2 acute on chronic HFrEF. Cardiology was consulted to assess patient's ejection fraction and current heart failure stage. #Acute hypoxic respiratory failure secondary to acute on chronic HFrEF #HFrEF #Dilated cardiomyopathy #Essential HTN #HLD Patient presented with severe shortness of breath, lower extremity pitting edema as well as JVD. BNP elevated at 3280. Last echo showed dilated cardiomyopathy with marked dilated left ventricular end-diastolic diameter of 7.5 cm with severe global hypokinesis and severe systolic dysfunction of left ventricle ejection fraction approximately 10 to 15%. A month later, [employer]AIL[employer]-D defibrillator was placed to help with patient's symptoms. Repeat echo shows Mild improvement ejection fraction, 15 to 20% but continues to show dilated cardiomyopathy and severe global hypokinesis, and pacing wire is present. -Continue with aggressive diuresis, Bumex IV 2 mg 3 times daily -Strict I's and O's -Fluid restriction 1000 mL -Maintain potassium greater than 4 and magnesium greater than 2 -Restart GDMT as blood pressure tolerates -Wean O2 as tolerated -Continue Aspirin and Atorvastatin daily Rest of problems as per primary tream #CKD III, stable #CVA #Tobacco Dependence #Polysubstance-use disorder Patient's plan and care discussed with my attending, Dr. Mychal Ceballos MD PGY-2
--- NOTE | 2024-07-24 17:43 | ESPR_ITS ---
Documentation for date of: 07/24/24 Subjective Subjective Interval history: 07/24: no acute overnight events. Pt is seen and examined at bedside. Pt has significant improvement on SOB and is able to lay flat. Pt. is net negative 950cc overnight and goal is 1500. Pt denies any chest pain, N/V or abdominal pain. Exam Vital Signs Temp Pulse Resp BP Pulse Ox O2 Del Method O2 Flow Rate 97.6 F 66 18 105/64 97 Nasal Cannula 2 07/24/24 16:00 07/24/24 16:00 07/24/24 16:00 07/24/24 16:00 07/24/24 16:00 07/24/24 16:00 07/24/24 16:00 Narrative Exam GENERAL: A&Ox3 but somnolent, Not in acute distress but unable to lay flat due to shortness of breath NEURO: no focal neurological deficits HEENT: Atraumatic, Normocephalic. mucous membranes moist. Eyes open, symmetrical, & clear HEART: Normal Heart Sounds LUNGS: Coarse breath sounds with no wheezing or crackles. ABDOMEN: soft, non-distended, non-tender, bowel sounds heard, no guarding or rebound tenderness SKIN: No Rash or ecchymoses EXTREMITIES: BK 1+ edema bilaterally in lower extremities, tenderness, able to move all 4 extremities, pedal pulses palpated Objective Labs 07/25/24 05:00 07/25/24 05:56 Labs: Laboratory Results - last 24 hr 07/24/24 05:15 WBC 10.7 H RBC 4.09 L Hgb 12.4 L Hct 38.9 L MCV 95 MCH 30.3 MCHC 31.9 RDW Std Deviation 58.3 H Plt Count 138 L Neut % (Auto) 75 Lymph % (Auto) 13 [place] % (Auto) 7 Eos % (Auto) 4 Baso % (Auto) 1 Neut # (Auto) 8.0 H Lymph # (Auto) 1.4 [place] # (Auto) 0.7 Eos # (Auto) 0.5 Baso # (Auto) 0.1 Immature Gran # (Auto) 0.03 H Absolute Nucleated RBC 0.00 Immature Gran % 0 Nucleated RBC % 0 Sodium 143 Potassium 4.3 Chloride 106 Carbon Dioxide 28.8 Anion Gap 8 BUN 35 H Creatinine 1.7 H Estim Creat Clear Calc 43.5 L eGFR 42 L BUN/Creatinine Ratio 21 H Glucose 109 H Calculated Osmolality 293 Calcium 8.9 Corrected Calcium 8.9 Phosphorus 3.1 Magnesium 2.6 Total Bilirubin 1.1 AST 11 ALT 32 Alkaline Phosphatase 116 Total Protein 6.7 Albumin 4.1 Globulin 2.6 Albumin/Globulin Ratio 1.6 Quality Measures Quality Measures none Advance care planning discussed with:: patient Assessment & Plan Assessment Current Active Medications: Generic Name Dose Route Start Last Admin Trade Name Freq PRN Reason Stop Dose Admin Acetaminophen 650 mg 07/23/24 13:11 Acetaminophen 325 Mg Tablet PO 08/22/24 13:10 Q6H PRN Fever >101.5 Albuterol/Ipratropium 3 ml 07/23/24 15:43 Albuterol/Ipratropium (Duoneb) Rt [place] 3 Ml Nebu INH 08/22/24 18:59 Q4HRRT PRN SHORTNESS OF BREATH OR WHEEZE Aspirin 81 mg 07/24/24 09:00 07/24/24 08:57 Aspirin Ec 81 Mg Tabec PO 08/23/24 08:59 81 mg QDAY PINKY Administration Bumetanide 2 mg 07/24/24 14:00 07/24/24 15:01 Bumetanide Inj 0.25 Mg/Ml Vial 4 Ml IVP 08/23/24 13:59 2 mg TID PINKY Administration Enoxaparin Sodium 40 mg 07/24/24 09:00 07/24/24 08:57 Enoxaparin Sod Inj 40 Mg/0.4 Ml Syringe SC 08/07/24 08:59 40 mg QDAY PINKY Administration Ondansetron HCl 4 mg 07/23/24 13:11 Ondansetron Inj 2 Mg/Ml Inj 2 Ml IV 08/22/24 13:10 Q6H PRN NAUSEA OR VOMITING Protocol Plan Mr. Rudd is a 74 year old male with a past medical history of CHF Systolic Dysfunction EF 10-15% (04/25/2024) , HTN, HLD, CKD, Chronic Obstructive Pulmonary Disease secondary to 20+ pack year, obstructive sleep apnea, hx. of CVA, history of methamphetamine use who presents to the ED multiple times in the last 30 days with shortness of breath. Pt has multiple admissions of similar episodes of increasingly shortness of breath at rest and exertion. Pt states he is unable to lay flat or sleep due to his symptoms. He also complains of a productive cough with yellow phlegm for the past 2 days. Patient has end-stage heart failure with EF of 10-15%; Pt underwent CRTD placement approximately [address] Horta, however denies improvement of symptoms. #Acute Respiratory Failure secondary to #CHF exacerbation in the setting of #HFrEF (EF 10-15%) #Dilated Cardiomyopathy -Presenting with shortness of breath and lower extremity pitting edema +1 -BNP chronically elevated (3280) -ECHO from 04/25/2024 shows: Dilated cardiomyopathy with markedly dilated LV end- diastolic diameter 7.5 cm with severe global hypokinesis and severe systolic dysfunction left ventricle ejection fraction approximately 10-15%. Moderate RV dilatation. Moderate RV dysfunction. Estimated RVSP 50mmHg. Severe biatrial dilatation. The ascending aorta is moderately dilated. 4.2cm. Mild mitral valve regurgitation. Mild aortic valve regurgitation Mild to moderate tricuspid valve regurgitation. IVC dilated. 2.5cm. Pleural effusion present. Plan: -DuoNebs as needed -increase Bumex 2 mg IV to TID -Hold guideline directed medical therapy due to soft BP -maintain K>4 and Mg >2 -Fluid Restriction 1000ml, Pt. is net negative 950cc (07/24) -Strict Ins and Outs - goal is net negative of 1500 -Consulted Cardio, appreciate recommendations #CKD III, stable -Likely prerenal azotemia 2/2 to CHF -Patient has a past medical history of chronic kidney disease. -Creatinine 1.7, eGFR 42, BUN 37- appears to be baseline Plan: -Renally dose medication -Avoid nephrotoxins -Follow-up with daily labs #Essential hypertension -Patient has history of hypertension but unable to recall if he takes any medications or not. Patient's daughter Lilian is unreachable and daughter at bedside does not know patient's list of medications -Will hold antihypertensive medications since patient's blood pressure is soft -Will continue to monitor blood pressure closely and will add antihypertensive if needed #CVA #HLD -Patient has a past medical history of stroke with no motor function deficits -ASCVD Risk-31% risk of cardio vascular event in 10 years High intensity statin Plan: -Aspirin 81 mg QDay -Holding Atorvastatin 80 mg HS - restart when appropriate #Tobacco Dependence #Polysubstance-use disorder -will consider nicotine patch if Pt's have increase symptoms of cravings Disposition: telemetry for AHRF in the setting of CHF DVT Prophylaxis: enoxaparin 40mg Qdaily GI Prophylaxis: N/a Diet: Cardiac Diet with fluid restriction of 1000ml Code status: Full Assessment and plan discussed with my attending physician Dr. Beverly Su (PGY-1)- Internal medicine resident Senior resident attestation: Patient evaluated and examined at the bedside, plan of care discussed with rest of the team including my attending physician, except as noted. Patient is 72-year-old male past medical history of HFrEF EF 10 to 15%, status post [employer]-D by Dr. Horta, 2 months ago, patient was on home Bumex, complaining of shortness of breath on arrival to the emergency room, admitted to the hospital with acute exacerbation of CHF. Patient started on IV diuresis with Bumex 1 mg 3 times daily. Continue to diurese aggressively, achieved almost net negative - 2 L. Noted improvement in swelling and symptomatic relief shortness of breath, currently seen 1 L of oxygen. Cardiology was consulted recommended continuing diuresis and starting GDMT when bp reasonable. # Acute hypoxic respiratory failure #HFrEF #Hypertension #History of CVA Quresh PGY2
[2024-07-25] VITALS: BP 94/72; PULSE 75; PULSE 92; RESP 16; TEMP 36.6; O2SAT 95
[2024-07-25 04:00] VITALS: BP 115/73; PULSE 75; RESP 16; TEMP 36.3; O2SAT 96
[2024-07-25 05:30] VITALS: BP 115/73; PULSE 103
[2024-07-25] MEDS: BUMETANIDE INJ 0.25 MG/ML VIAL 4 ML 2 MG IVP (05:30)
[2024-07-25 06:29] VITALS: PULSE 76; RESP 18; O2SAT 96
[2024-07-25 06:32] LABS: Basophils # (Auto) 0.1 Thou/mm3 (0.0-0.2); Basophils % (Auto) 1 % (0-2.5); Eosinophils # (Auto) 0.6 Thou/mm3 (0.0-0.5); Eosinophils % (Auto) 7 % (0-10); Hematocrit 39.2 % (41.0-53.0); Hemoglobin 12.2 g/dL (13.5-16.0); Immature Granulocytes % (Auto) 0 % (0-0); Immature Granulocytes Auto 0.02 Thou/mm3 (0.00-0.00); Lymphocytes # (Auto) 1.4 Thou/mm3 (1.0-4.8); Lymphocytes % (Auto) 16 % (10-50); Mean Corpuscular HGB Conc 31.1 g/dl (31.0-37.0); Mean Corpuscular Volume 96 fL (80-100); Monocytes # (Auto) 0.7 Thou/mm3 (0.0-0.8); Monocytes % (Auto) 8 % (0-12); Neutrophils # (Auto) 5.7 Thou/mm3 (1.8-7.7); Neutrophils % (Auto) 68 % (37-80); Nucleated Red Blood Cell % 0 /100 WBC (0); Platelet Count 145 Thou/mm3 (140-440); RDW Standard Deviation 58.1 fL (35.1-43.9); Red Blood Count 4.07 Miln/mm3 (4.50-5.90); White Blood Count 8.4 Thou/mm3 (3.8-10.6)
[2024-07-25 07:07] LABS: Alanine Aminotransferase 26 U/L (10-49); Albumin, Serum 4.2 gm/dL (3.4-4.8); Albumin/Globulin Ratio 1.6 (1.2-2.2); Alkaline Phosphatase 110 U/L (46-116); Anion Gap 9 (7-16); Aspartate Amino Transferase 17 U/L (0-34); BUN/Creatinine Ratio 21 Ratio (12-20); Bilirubin,Total 1.2 mg/dL (0.3-1.2); Blood Urea Nitrogen 36 mg/dL (9-23); Calcium 9.3 mg/dL (8.3-10.6); Calcium (Corrected) 9.3 mg/dL (8.5-10.1); Carbon Dioxide 30.7 mMol/L (20.0-31.0); Chloride 103 mMol/L (98-107); Creatinine (Component) 1.7 mg/dL (0.6-1.3); Estimated Creatinine Clearance 43.5 mL/min (>60); Globulin 2.7 gm/dL (2.3-3.5); Glucose 98 mg/dL (74-106); Magnesium 2.5 mg/dL (1.6-2.6); Osmolality,Calculated 293 (275-295); Phosphorous 3.1 mg/dL (2.4-5.1); Potassium 4.2 mMol/L (3.4-5.1); Sodium 143 mMol/L (136-145); Total Protein 6.9 gm/dL (5.7-8.2); eGFR 42 See Note
[2024-07-25 07:34] VITALS: PULSE 77
[2024-07-25 08:00] VITALS: BP 118/83; PULSE 56; RESP 18; TEMP 36.4; O2SAT 96
[2024-07-25] MEDS: ASPIRIN EC 81 MG TABEC PO (08:08)
[2024-07-25] MEDS: ENOXAPARIN SOD INJ 40 MG/0.4 ML SYRINGE SC (08:08)
--- NOTE | 2024-07-25 09:19 | PC.SS ---
Late note 07-25-24: SS met with patient regarding his d/c plan. Pt is alert/oriented. Pt was admitted for CHF Exacerbation. Pt confirmed demographic and contact information is correct on facesheet. Pt resides with. Pt ambulates independently without assistance or DME. Pt is ok with all ADLs. Patient?s pharmacy of choice is [facility] [address]. Pt named his dtr, Lilian Rudd medical decision maker if he is unable. Patient?s choice is to return home upon d/c. Pt states has O2 home. Pt states she followed up with PCP 2 months ago. D/C plan: Return home Next of Kin: Lilian Rudd, daughter, phone# [phone] PCP: Dr. lindsay Salinas from [place] Address: Correct on facesheet
--- NOTE | 2024-07-25 15:24 | PD.RESDS ---
Planned Discharge Date 07/25/24 DS: Providers Provider Date of admission: 07/23/24 13:06 Primary care physician: Hong Gates Admitting Provider: Michel Paul MD Attending Provider on Admission: Michel Paul MD Consults: 07/23/24 16:03 Referral Infection Control Routine Comment: Reason for Infection Control Referral: Readmitted within 30 days 07/23/24 17:05 Consult to Infectious Diseases Urgent Comment: Consulting Provider: Wood Diez 07/24/24 15:14 Consult to Cardiology Routine Comment: Consulting Provider: Anurag Horta Attending Provider on DC: Rae Dowling MD Discharging Provider: Rae Dowling MD DS: Diagnosis Problem List Completed Was Problem List Reviewed/Reconciled?: Yes Hospital Course Hospital Course Hospital course: Mr. Rudd is a 74-year-old male with past medical history of HFrEF of 10 to 15% (04/2024), hypertension, hyperlipidemia, CKD, COPD secondary to [id number] smoking history, SEGUNDO, history of CVA, history of previous meth use who presented to [facility] with chief complaint of shortness of breath. Patient has had multiple admissions recently with a similar complaint of increasing dyspnea both at rest and with exertion. Patient states that he is not able to lay flat or sleep comfortably due to the dyspnea. He also complains of a recent cough with yellow phlegm for the past 2 days. Patient had recent FRONT WINDOW CASHIER-D placement in May 2024. Patient upon presentation had a chest x-ray which revealed mild to moderate CHF and moderate enlargement of the cardiac contour, prominent vascular congestion including central vascular engorgement and basilar edema. In the emergency department patient received Lasix 40 mg x 1 along with topical nitroglycerin, aspirin 325 x 1 and a breathing treatment. Patient was admitted for management of CHF exacerbation. Cardiology was consulted who recommended strong diuretic therapy with Bumex. Patient's Bumex was titrated up to 1 mg 3 times daily until goal of 2 L of removal or maintained. Patient's breathing improved and he had returned to baseline health so he was medically cleared for discharge. Patient's Bumex dose is being increased to 1 mg 3 times daily and his other medications such as Entresto and metoprolol are being held due to soft blood pressures. We recommend to reconcile with his paper deliverer for resuming those medications. Due to patient's extremely low ejection fraction and frequent CHF hospitalizations we recommend goals of care discussion and to maintain strong diuretic therapy to improve symptoms to improve patient's quality of life. #New Meds Bumex 1 mg 3 times daily #Held meds Entresto Metoprolol Plan: Follow-up with PCP and paper deliverer to discuss recent hospitalization. Recommend goals of care discussion due to frequent CHF exacerbation requiring hospitalization and poor quality of life. Mr. Rudd is a 74 year old male with a past medical history of CHF Systolic Dysfunction EF 10-15% (04/25/2024) , HTN, HLD, CKD, Chronic Obstructive Pulmonary Disease secondary to 20+ pack year, obstructive sleep apnea, hx. of CVA, history of methamphetamine use who presents to the ED multiple times in the last 30 days with shortness of breath. Pt has multiple admissions of similar episodes of increasingly shortness of breath at rest and exertion. Pt states he is unable to lay flat or sleep due to his symptoms. He also complains of a productive cough with yellow phlegm for the past 2 days. Patient has end-stage heart failure with EF of 10-15%; Pt underwent CRTD placement approximately [address] Horta, however denies improvement of symptoms. #Acute Respiratory Failure secondary to #CHF exacerbation in the setting of #HFrEF (EF 10-15%) #Dilated Cardiomyopathy -Presenting with shortness of breath and lower extremity pitting edema +1 -BNP chronically elevated (3280) -ECHO from 04/25/2024 shows: Dilated cardiomyopathy with markedly dilated LV end-diastolic diameter 7.5 cm with severe global hypokinesis and severe systolic dysfunction left ventricle ejection fraction approximately 10-15%. Moderate RV dilatation. Moderate RV dysfunction. Estimated RVSP 50mmHg. Severe biatrial dilatation. The ascending aorta is moderately dilated. 4.2cm. Mild mitral valve regurgitation. Mild aortic valve regurgitation Mild to moderate tricuspid valve regurgitation. IVC dilated. 2.5cm. Pleural effusion present. Plan: -DuoNebs as needed -increase Bumex 2 mg IV to TID -Hold guideline directed medical therapy due to soft BP -maintain K>4 and Mg >2 -Fluid Restriction 1000ml, Pt. is net negative 950cc (07/24) -Strict Ins and Outs - goal is net negative of 1500 -Consulted Cardio, appreciate recommendations #CKD III, stable -Likely prerenal azotemia 2/2 to CHF -Patient has a past medical history of chronic kidney disease. -Creatinine 1.7, eGFR 42, BUN 37- appears to be baseline Plan: -Renally dose medication -Avoid nephrotoxins -Follow-up with daily labs #Essential hypertension -Patient has history of hypertension but unable to recall if he takes any medications or not. Patient's daughter Lilian is unreachable and daughter at bedside does not know patient's list of medications -Will hold antihypertensive medications since patient's blood pressure is soft -Will continue to monitor blood pressure closely and will add antihypertensive if needed #CVA #HLD -Patient has a past medical history of stroke with no motor function deficits -ASCVD Risk-31% risk of cardio vascular event in 10 years High intensity statin Plan: -Aspirin 81 mg QDay -Holding Atorvastatin 80 mg HS - restart when appropriate #Tobacco Dependence #Polysubstance-use disorder -will consider nicotine patch if Pt's have increase symptoms of cravings Disposition: telemetry for AHRF in the setting of CHF DVT Prophylaxis: enoxaparin 40mg Qdaily GI Prophylaxis: N/a Diet: Cardiac Diet with fluid restriction of 1000ml Code status: Full Status at Discharge Functional status at discharge: uses cane/walker Overall status at discharge: patient is progressing back to baseline Time Spent with Patient Time attestation: Total time spent providing and/or coordinating discharge services: Time spent: Greater than 30 minutes Exam Vital Signs Temp Pulse Resp BP Pulse Ox O2 Del Method O2 Flow Rate 97.6 F 56 L 18 118/83 96 Nasal Cannula 1 07/25/24 08:00 07/25/24 08:00 07/25/24 08:00 07/25/24 08:00 07/25/24 08:00 07/25/24 08:00 07/25/24 08:00 Discharge Plan Plan Patient Disposition: HOME (Self Care) Disposition Comment: Stable for admit Care Plan Goals: Recommend increasing water pill/Bumex to 1 mg 3 times daily, please follow-up with paper deliverer Dr. Michelet Horta's office within 3-5 days of discharge from the hospital. Recommend holding metoprolol and Entresto for now until you follow-up with your paper deliverer due to concern for low blood pressure and slow heart rate. In case of worsening symptoms please return to the emergency room Prescriptions/Referrals Prescriptions/Med Rec: Continued albuterol sulfate [ProAir HFA] 90 mcg/actuation Hfa Aerosol Inhaler 2 puff INHALATION Q6H PRN (Reason: Wheezing) sitagliptin 25 mg Tablet 25 mg PO DAILY atorvastatin 80 mg Tablet 40 mg PO HS empagliflozin 10 mg Tablet 10 mg PO QDAY aspirin 81 mg Capsule 81 mg PO QDAY Changed bumetanide 1 mg Tablet 1 mg PO TID Qty: 30 0RF Discontinued sacubitril-valsartan 24-26 mg Tablet 0.5 tab PO BID Hold Instructions: Resume on 06/01/24. Restart after seeing your PCP or Dr. Horta, depending on your BP. metoprolol succinate 25 mg tablet extended release 24 hr 12.5 mg PO QDAY Referrals: Hong Gates [Primary Care Provider] - Anurag Horta MD [Physician] - Patient/Caregiver Discharge Instructions Education Materials: Coping with Heart Failure, Eating Heart-Healthy Foods, Heart Failure: Know Your Baselines, ED Heart Failure Congestive Right Print Language: Citizen Of [place] Stand Alone Forms: Sloane Award Info., Patient Portal Info Letter Discharge Order Discharge Orders: Discharge (Routine); Ordered 07/25/24 Ordered By: Renée Early Quality Discharge Quality Measures none
== END 2024-07-25 11:47 | disposition home or self-care (01) | DRG 291 ==
LOC: SERX 13:58 → SERHOLD 14:01 → S3NX 16:00
PROVIDERS: Physician Assistant; Admitting Provider Internal Medicine; Emergency Provider Emergency Medicine; PCP Family Medicine; Visit Provider Internal Medicine
DX: I13.0 Hypertensive heart and chronic kidney disease with heart failure and stage 1 through stage 4 chronic kidney disease, or unspecified chronic kidney disease (principal); I50.23 Acute on chronic systolic (congestive) heart failure; J96.01 Acute respiratory failure with hypoxia; I42.0 Dilated cardiomyopathy; I07.1 Rheumatic tricuspid insufficiency; E78.5 Hyperlipidemia, unspecified; N18.30 Chronic kidney disease, stage 3 unspecified; Z86.73 Personal history of transient ischemic attack (TIA), and cerebral infarction without residual deficits; J44.9 Chronic obstructive pulmonary disease, unspecified; I50.84 End stage heart failure; F17.210 Nicotine dependence, cigarettes, uncomplicated
CPT/HCPCS: 36415; 71046; 80053; 83690; 83735; 83880; 84100; 84484; 85025; 87081; 87493; 87811; 93005; 93306; 94640; 96374; 96375; 99291; A9270; J1650; J1940; J3490

== ENCOUNTER 2024-08-25 07:58 | Emergency (ER) | payer OTHER, SELFPAY ==
[2024-08-25] VITALS (7 sets, daily range): BP systolic 102–111; BP diastolic 64–68; PULSE 50–87; RESP 13–36; TEMP 36.8–37.1; O2SAT 91–98; BMI 30.7
--- NOTE | 2024-08-25 08:23 | EKG_ITS ---
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
--- NOTE | 2024-08-25 08:24 | PD.EDSOB ---
ED SOB =RME/HPI General Chief Complaint: Shortness of Breath/Dyspnea Stated Complaint: SOB Time Seen by Provider: 08/25/24 08:20 Arrival date/time: 08/25/24 07:58 RME / HPI RME / HPI Narrative: DR. CONDON MAIN ED EVALUATION: 74 year old male presents to the Emergency Department with complaint of shortness of breath. Associated symptoms include green sputum but now is white and a cough. Denies fevers or chills. No other symptoms reported. PMHx: Pacemaker, hyperlipidemia, hypertension, and CHF Social Hx: Current smoker. Related Data Home Medications ?Medication ?Instructions ?Recorded ?Confirmed albuterol sulfate 90 mcg/actuation 2 puff inhalation Q6H PRN Wheezing 10/09/18 07/24/24 aerosol inhaler (ProAir HFA) aspirin 81 mg capsule 81 mg PO QDAY 04/25/24 07/24/24 atorvastatin 80 mg tablet 40 mg PO HS 04/25/24 07/24/24 empagliflozin 10 mg tablet 10 mg PO QDAY 04/25/24 07/24/24 sitagliptin 25 mg tablet 25 mg PO DAILY 07/07/24 07/24/24 Previous Rx's ?Medication ?Instructions ?Recorded bumetanide 1 mg tablet 1 mg PO TID #30 tabs 07/25/24 Allergies Allergy/AdvReac Type Severity Reaction Status Date / Time No Known Drug Allergies Allergy Unknown Verified 08/25/24 08:23 Review of Systems Review of Systems Systems Reviewed: All systems reviewed, normal except as documented Narrative Review of Systems: GEN: No fever, no chills, no weight loss EYES: No discharge, no visual changes, no pain HEENT: No ear pain, no congestion, no sore throat PULM: + shortness of breath, + cough, + congestion CV: No chest pain, no dyspnea on exertion, no palpitations GI: No nausea, no vomiting, no diarrhea, no pain, no constipation : No frequency, no urgency and no dysuria MUSC/SKEL: No joint pain, no back pain SKIN: No rash PSYCH: No hallucinations, no depression HEME/LYMPH: No easy bleeding or bruising tendencies NEURO: No weakness, no headache Past Medical History Social History SMOKING STATUS: Never smoker SUBSTANCE USE: does not use ALCOHOL: Never ED Exam Narrative Physical exam: GENERAL APPEARANCE: alert and oriented x 4, well-developed, well-nourished VITALS: All vitals were reviewed and the pulse ox is 98% on 2 L/min via a nasal cannula HEENT: Normocephalic, atraumatic; pupils equal, round, reactive to light; EOMI; mucous membranes pink, moist; oropharynx clear NECK: Supple LUNGS: Decreased air movement; wheezes and rhonchi HEART: Regular rate, regular rhythm; normal S1, S2; no murmurs ABDOMEN: non distended; normal BS; soft, no tenderness, no guarding, no rebound; no masses, no organomegaly, no hernia BACK: no CVA tenderness EXTREMITIES: atraumatic; no edema NEUROLOGIC: awake; alert and oriented x4; cranial nerves II-XII grossly intact; no focal sensory or motor deficits PSYCHIATRIC: appropriate mood and affect SKIN: warm, dry, normal color; no rashes Course Quality Measures none Orders Category Date Time Status Bedside COVID-19 Antigen Test NOW Care 08/25/24 08:23 Active Bedside Influenza A&B Antigen Test NOW Care 08/25/24 08:23 Completed Trimming Caser NOW Care 08/25/24 08:23 Active EKG (ED ONLY) *Do not use* NOW Care 08/25/24 08:23 Completed EKG (ED Only) Stat Exams 08/25/24 08:23 Draft XR chest 1V portable Stat Exams 08/25/24 08:23 Completed B-Type Natriuretic Peptide Stat Lab 08/25/24 08:45 Completed Blood Culture (Lab) Stat Lab 08/25/24 09:20 Received CBC Stat Lab 08/25/24 08:45 Completed Comprehensive Metabolic Panel Stat Lab 08/25/24 08:45 Completed Lactate (Lactic Acid) Stat Lab 08/25/24 09:35 Completed Lipase Stat Lab 08/25/24 08:45 Completed Magnesium Stat Lab 08/25/24 08:45 Completed Partial Thromboplastin Time Stat Lab 08/25/24 08:45 Completed Procalcitonin Stat Lab 08/25/24 09:35 Completed Prothrombin Time with INR Stat Lab 08/25/24 08:45 Completed Troponin I Stat Lab 08/25/24 08:45 Completed Troponin I Stat Lab 08/25/24 12:49 Completed Albuterol/Ipratr Rt Kayleigh [Duoneb Rt Kayleigh] Med 08/25/24 10:03 Discontinued 3 ml INH X1 ONE Furosemide Inj [Lasix Inj] Med 08/25/24 11:05 Discontinued 40 mg IVP X1 ONE Levalbuterol Rt [Xopenex Rt Kayleigh] Med 08/25/24 08:53 Discontinued 1.25 mg INH X1 ONE Magnesium Sulfate 2 GM Ivpb [Magnesium Sulfate Ivpb] Med 08/25/24 11:05 Discontinued 2 gm in 50 ml IV X1 Sodium Chloride Rt Kayleigh 0.9% [NS Rt Kayleigh 0.9%] Med 08/25/24 08:53 Active 3 ml INH PRN PRN Oxygen Delivery NOW RT 08/25/24 09:10 Active Vital Signs Vital signs: Vital Signs Temperature 98.2 F 08/25/24 08:08 Pulse Rate 75 08/25/24 08:08 Respiratory Rate 36 H 08/25/24 08:08 Blood Pressure 102/68 08/25/24 08:08 Pulse Oximetry (%) 94 L 08/25/24 08:08 Oxygen Delivery Method Nasal Cannula 08/25/24 08:08 Oxygen Flow Rate 2 08/25/24 08:08 Procedures -ED Smoking Cessation Time Spent Discussing Smoking Cessation w/Patient (min): 3 Patient Acknowledges Need for Cessation: Yes Additional Comments: The patient was counseled as to the multiple risks to their health from continued use of tobacco products. It was explained that continuing to smoke may lead to multiple short and jail negative health consequences, including but not limited to mouth/esophageal/lung cancer, COPD, and heart disease. The patient states they understand these risks, and also understand the options and resources available to them to help them stop smoking. Nicotine replacement therapy, local hotlines, and local resources were discussed as viable options for helping them stop their tobacco use. The total time spent counseling the patient regarding tobacco cessation was 3 minutes. Shortness of Breath / Dyspnea MDM Narrative MDM Narrative:: I, Ayanna Samuel, am scribing for and in the presence of Dr. Condon. Patient data External records reviewed:: [facility] previous records (Reviewed last admission discharge dated 07/25/24, patient admitted for the following: CHF) Clinical information provided by:: patient Social determinants that could affect healthcare access:: other (specify) (current tobacco smoker) Patient has the following chronic illnesses:: Pacemaker, hyperlipidemia, hypertension, and CHF How is presenting disease/condition affected by chronic disease/condition?: exacerbated by Evaluation data The following diagnostics were reviewed and interpreted by me:: lab results, radiology exam(s) and EKG tracing(s) (EKG#1: EKG at 0912 hours. Interpreted by me: paced rhythm, rate 71, no STEMI) Lab and/or radiology exams considered but not ordered:: none Interpretation Summary: Procedure(s): XR chest 1V portable Accession Number(s): [id number] cc: Andrew Eddy MD; Phoebe Condon MD~ Examination: AP chest single view TECHNIQUE: AP portable upright chest single view Exam date and time: August 25, 2024 0851 hours INDICATIONS: Chest pain today. FINDINGS: Early heart failure Moderate enlargement cardiac contour Prominent vascular congestion with early septal edema at the lung bases Cardiac leads satisfactory position IMPRESSION: Early heart failure Dictated By: Andrew Eddy MD Medications / Prescriptions Medications or Prescriptions considered but not ordered:: none Medication administrations:: Medication Administration History Sodium Chloride (Sodium Chloride Rt Kayleigh 0.9% 3 Ml Nebu) 3 ml INH PRN PRN PRN Reason: SOLN Stop: 09/24/24 08:52 Last Admin: 08/25/24 09:09 Dose: 3 ml Documented By: EMILIANO Discontinued Medications Albuterol/Ipratropium (Albuterol/Ipratropium (Duoneb) Rt Kayleigh 3 Ml Nebu) 3 ml INH X1 ONE Stop: 08/25/24 10:04 Last Admin: 08/25/24 11:06 Dose: 3 ml Documented By: EMILIANO Furosemide (Furosemide Inj 10 Mg/Ml 4ml Vial) 40 mg IVP X1 ONE Stop: 08/25/24 11:06 Last Admin: 08/25/24 11:20 Dose: 40 mg Documented By: TM Magnesium Sulfate (Magnesium Sulfate Ivpb) 2 gm in 50 mls @ 25 mls/hr IV X1 ONE Stop: 08/25/24 13:04 Last Admin: 08/25/24 11:23 Dose: 25 mls/hr Documented By: JOSH Levalbuterol HCl (Levalbuterol Rt 1.25 Mg/0.5 Ml Nebu) 1.25 mg INH X1 ONE Stop: 08/25/24 08:54 Last Admin: 08/25/24 09:09 Dose: 1.25 mg Documented By: EMILIANO see above Consultations Consultation(s) initiated? (list below): No Diagnosis Shortness of Breath Differential Diagnosis: acute exacerbation of chronic obstructive airways disease, congestive heart failure, community acquired pneumonia and pulmonary embolism Most likely diagnosis given after review of the tests above:: CHF exacerbation Admission Indicated Admission indicated?: not indicated Admission Request Was there a request for admission?: No Disposition Plan Disposition Plan: Discharge Discharge Attestation Discharge Attestation: The patient and all family members were given an opportunity to ask questions and understood the discharge instructions. Discharge instructions specifically effects, indications for sooner follow up or return to the emergency department, and the expected course of current diagnosis. Patient condition: Stable Discharge Plan Plan Patient Disposition: HOME (Self Care) Prescriptions/Referrals Prescriptions/Med Rec: No Action albuterol sulfate [ProAir HFA] 90 mcg/actuation Hfa Aerosol Inhaler 2 puff INHALATION Q6H PRN (Reason: Wheezing) sitagliptin 25 mg Tablet 25 mg PO DAILY atorvastatin 80 mg Tablet 40 mg PO HS empagliflozin 10 mg Tablet 10 mg PO QDAY aspirin 81 mg Capsule 81 mg PO QDAY bumetanide 1 mg Tablet 1 mg PO TID Qty: 30 0RF Referrals: No Primary/Family,Physician [Primary Care Provider] - In 1 week Problem List Clinical Impression: CHF exacerbation Patient/Caregiver Discharge Instructions Education Materials: Heart Failure Signs of Flare-Up Print Language: Mong[place]ian Stand Alone Forms: Sloane Award Info., Patient Portal Info Letter
--- NOTE | 2024-08-25 08:26 | PC.NURSE ---
PT ARRIVES VIA EMS FROM HOME, HAS FELT SOB FOR A FEW DAYS GETTING WORSE TODAY. HX OF COPD ON 2L NC AT BASELINE. EMS GAVE ALBUTEROL TX PRIOR TO ARRIVAL. PT ARRIVES TO L . HX OF CHF, STROKE, PACEMAKER PLACED LAST YEAR. PT DENIES ANY PAIN CURRENTLY. GIVEN URINAL AND CALL POND.
[2024-08-25 08:59] LABS: Basophils # (Auto) 0.1 Thou/mm3 (0.0-0.2); Basophils % (Auto) 0 % (0-2.5); Eosinophils # (Auto) 0.8 Thou/mm3 (0.0-0.5); Eosinophils % (Auto) 7 % (0-10); Hematocrit 42.4 % (41.0-53.0); Hemoglobin 13.4 g/dL (13.5-16.0); Immature Granulocytes % (Auto) 0 % (0-0); Immature Granulocytes Auto 0.03 Thou/mm3 (0.00-0.00); Lymphocytes # (Auto) 0.7 Thou/mm3 (1.0-4.8); Lymphocytes % (Auto) 7 % (10-50); Mean Corpuscular HGB Conc 31.6 g/dl (31.0-37.0); Mean Corpuscular Hemoglobin 30.2 pg (25.0-35.0); Mean Corpuscular Volume 96 fL (80-100); Monocytes # (Auto) 0.7 Thou/mm3 (0.0-0.8); Monocytes % (Auto) 7 % (0-12); Neutrophils # (Auto) 8.9 Thou/mm3 (1.8-7.7); Neutrophils % (Auto) 80 % (37-80); Nucleated Red Blood Cell % 0 /100 WBC (0); Platelet Count 157 Thou/mm3 (140-440); RDW Standard Deviation 59.4 fL (35.1-43.9); Red Blood Count 4.44 Miln/mm3 (4.50-5.90); White Blood Count 11.2 Thou/mm3 (3.8-10.6)
[2024-08-25] MEDS: SODIUM CHLORIDE RT SOL 0.9% 3 ML NEBU INH (09:09)
[2024-08-25] MEDS: LEVALBUTEROL RT 1.25 MG/0.5 ML NEBU INH (09:09)
[2024-08-25 09:14] LABS: Alanine Aminotransferase 28 U/L (10-49); Albumin, Serum 4.2 gm/dL (3.4-4.8); Albumin/Globulin Ratio 1.4 (1.2-2.2); Alkaline Phosphatase 117 U/L (46-116); Anion Gap 5 (7-16); Aspartate Amino Transferase 31 U/L (0-34); BUN/Creatinine Ratio 24 Ratio (12-20); Bilirubin,Total 1.3 mg/dL (0.3-1.2); Blood Urea Nitrogen 39 mg/dL (9-23); Calcium 8.8 mg/dL (8.3-10.6); Calcium (Corrected) 8.8 mg/dL (8.5-10.1); Carbon Dioxide 29.8 mMol/L (20.0-31.0); Chloride 103 mMol/L (98-107); Creatinine (Component) 1.6 mg/dL (0.6-1.3); Estimated Creatinine Clearance 45.9 mL/min (>60); Glucose 102 mg/dL (74-106); INR 1.2 (0.9-1.3); Lipase 31 U/L (12-53); Magnesium 2.7 mg/dL (1.6-2.6); Osmolality,Calculated 285 (275-295); Partial Thromboplastin Time 28.9 Seconds (22.0-36.0); Potassium 4.3 mMol/L (3.4-5.1); Prothrombin Time 13.2 Seconds (9.0-12.2); Sodium 138 mMol/L (136-145); Total Protein 7.2 gm/dL (5.7-8.2); eGFR 45 See Note
[2024-08-25 09:20] LABS: B-Type Natriuretic Peptide > 3280 pg/mL (0-100)
[2024-08-25 09:57] LABS: Lactate (Lactic Acid) 0.8 mMol/L (0.4-2.0)
[2024-08-25 10:31] LABS: Procalcitonin 0.21 ng/ml (0.0-0.49)
[2024-08-25] MEDS: ALBUTEROL/IPRATROPIUM (Duoneb) RT SOL 3 ML NEBU INH (11:06)
[2024-08-25] MEDS: FUROSEMIDE INJ 10 MG/ML 4ML VIAL 40 MG IVP (11:20)
[2024-08-25] MEDS: Magnesium Sulfate 2 GM Ivpb 2 GM/50 ML BAG IV (11:23)
--- NOTE | 2024-08-25 12:31 | PC.NURSE ---
PT GIVEN TURKEY SANDWICH AT THIS TIME.
[2024-08-25 13:21] LABS: Troponin I 0.042 ng/mL (0.0-0.045)
== END 2024-08-25 14:19 | disposition home or self-care (01) ==
PROVIDERS: Emergency Provider Emergency Medicine
DX: I11.0 Hypertensive heart disease with heart failure (principal); I50.9 Heart failure, unspecified; E78.5 Hyperlipidemia, unspecified; Z95.0 Presence of cardiac pacemaker; F17.210 Nicotine dependence, cigarettes, uncomplicated
CPT/HCPCS: 36415; 71045; 80053; 83605; 83690; 83735; 83880; 84145; 84484; 85025; 85610; 85730; 87040; 87400; 87811; 93005; 94640; 96365; 96366; 96375; 99284; A9270; J1940; J3475

== ENCOUNTER 2024-11-04 17:01 | Emergency (ER) | payer MEDICARE, OTHER, SELFPAY ==
[2024-11-04 17:02] VITALS: BMI 32.8
--- NOTE | 2024-11-04 17:04 | EKG_ITS ---
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
[2024-11-04 17:45] VITALS: BP 99/67; PULSE 70; RESP 20; TEMP 36.9; O2SAT 95
--- NOTE | 2024-11-04 17:47 | XR_ITS ---
Examination: PA lateral chest 2 Technique: Upright PA lateral chest 2 views Exam date and time: November 04, 2024 1707 hours Indications: Shortness of breath today Comparison: August 25, 2024 Findings: Mild CHF Moderate enlargement cardiac contour Prominent vascular congestion with septal pulmonary edema at the lung bases Small left pleural effusion Cardiac leads satisfactory position Impression: Mild CHF
--- NOTE | 2024-11-04 17:47 | PD.EDRME ---
Rapid Medical Screening Exam RME Arrival date/time: 11/04/24 17:01 74-year-old male with CKD and CHF presents the emergency department today complaints of shortness of breath Chief Complaint: General Adult/Misc Complain
[2024-11-04 18:11] LABS: Collection Type, Urine Clean Catch; RBC,Urine 0 /hpf (0-3); Squamous Epithelial Cell,Urine 0 /hpf (0-5); WBC,Urine 0 /hpf (0-5)
[2024-11-04 18:40] LABS: Basophils # (Auto) 0.1 Thou/mm3 (0.0-0.2); Basophils % (Auto) 1 % (0-2.5); Eosinophils # (Auto) 0.3 Thou/mm3 (0.0-0.5); Eosinophils % (Auto) 4 % (0-10); Hematocrit 40.8 % (41.0-53.0); Hemoglobin 12.8 g/dL (13.5-16.0); Immature Granulocytes % (Auto) 0 % (0-0); Immature Granulocytes Auto 0.02 Thou/mm3 (0.00-0.00); Lymphocytes # (Auto) 1.6 Thou/mm3 (1.0-4.8); Lymphocytes % (Auto) 22 % (10-50); Mean Corpuscular HGB Conc 31.4 g/dl (31.0-37.0); Mean Corpuscular Hemoglobin 28.8 pg (25.0-35.0); Mean Corpuscular Volume 92 fL (80-100); Monocytes # (Auto) 0.5 Thou/mm3 (0.0-0.8); Monocytes % (Auto) 7 % (0-12); Neutrophils # (Auto) 4.8 Thou/mm3 (1.8-7.7); Neutrophils % (Auto) 66 % (37-80); Nucleated Red Blood Cell % 0 /100 WBC (0); Platelet Count 150 Thou/mm3 (140-440); Red Blood Count 4.44 Miln/mm3 (4.50-5.90); White Blood Count 7.2 Thou/mm3 (3.8-10.6)
[2024-11-04 18:51] LABS: Bilirubin,Urine Negative (Negative); Blood,Urine Negative (Negative); Clarity,Urine Clear (Clear/Hazy); Color,Urine Colorless (Lt Yel-Yel); Glucose, Urine Trace (Negative); Hyaline Casts,Urine < 1 /hpf (0-1); Ketones,Urine Negative (Negative); Leukocyte Esterase,Urine Negative (Negative); Nitrite,Urine Negative (Negative); Protein,Urine Negative (Neg - Trace); Specific Gravity,Urine 1.009 (1.001-1.035); Urobilinogen,Urine Negative mg/dL (0.0-1.0)
[2024-11-04 18:51] LABS: INR 1.3 (0.9-1.3); Partial Thromboplastin Time 28.3 Seconds (22.0-36.0); Prothrombin Time 14.2 Seconds (9.0-12.2)
[2024-11-04 18:52] LABS: Amphetamine/Methamp Scrn,U Negative (Negative); Barbiturate Screen,Urine Negative (Negative); Benzodiazepines Screen,Urine Negative (Negative); Benzoylecgonine Screen, Ur Negative (Negative); Fentanyl Screen,Urine Negative (Negative); Opiate Screen,Urine Negative (Negative); THC Screen,Urine Negative (Negative)
[2024-11-04 18:57] LABS: Alanine Aminotransferase 14 U/L (10-49); Albumin, Serum 4.1 gm/dL (3.4-4.8); Albumin/Globulin Ratio 1.3 (1.2-2.2); Alkaline Phosphatase 119 U/L (46-116); Anion Gap 8 (7-16); Aspartate Amino Transferase 21 U/L (0-34); BUN/Creatinine Ratio 19 Ratio (12-20); Bilirubin,Total 0.7 mg/dL (0.3-1.2); Blood Urea Nitrogen 45 mg/dL (9-23); Calcium 9.2 mg/dL (8.3-10.6); Calcium (Corrected) 9.2 mg/dL (8.5-10.1); Carbon Dioxide 30.7 mMol/L (20.0-31.0); Chloride 104 mMol/L (98-107); Creatinine (Component) 2.4 mg/dL (0.6-1.3); Estimated Creatinine Clearance 30.6 mL/min (>60); Globulin 3.1 gm/dL (2.3-3.5); Glucose 101 mg/dL (74-106); Magnesium 2.6 mg/dL (1.6-2.6); Osmolality,Calculated 296 (275-295); Potassium 4.8 mMol/L (3.4-5.1); Sodium 143 mMol/L (136-145); Total Protein 7.2 gm/dL (5.7-8.2); Troponin I 0.038 ng/mL (0.0-0.045); eGFR 28 See Note
[2024-11-04 19:45] LABS: B-Type Natriuretic Peptide > 3280 pg/mL (0-100)
--- NOTE | 2024-11-04 20:30 | PD.EDADULT ---
ED General RME/HPI General Chief complaint: General Adult/Misc Complain Stated complaint: GAINING WEIGHT, DON'T FEEL GOOD Time Seen by Provider: 11/04/24 18:04 Arrival date/time: 11/04/24 17:01 RME / HPI RME / HPI narrative: 74-year-old male patient with past medical history of HFrEF of 10 to 15% (04/2024), hypertension, hyperlipidemia, CKD, COPD secondary to [id number] smoking history, SEGUNDO, history of CVA, history of previous meth use, came in for evaluation regarding shortness of breath, gaining weight, and does not feel good. Patient denies any other complaints no medication was taken prior travel Related Data Home Medications ?Medication ?Instructions ?Recorded ?Confirmed albuterol sulfate 90 mcg/actuation 2 puff inhalation Q6H PRN Wheezing 10/09/18 07/24/24 aerosol inhaler (ProAir HFA) aspirin 81 mg capsule 81 mg PO QDAY 04/25/24 07/24/24 atorvastatin 80 mg tablet 40 mg PO HS 04/25/24 07/24/24 empagliflozin 10 mg tablet 10 mg PO QDAY 04/25/24 07/24/24 sitagliptin 25 mg tablet 25 mg PO DAILY 07/07/24 07/24/24 Previous Rx's ?Medication ?Instructions ?Recorded bumetanide 1 mg tablet 1 mg PO TID #30 tabs 07/25/24 Allergies Allergy/AdvReac Type Severity Reaction Status Date / Time No Known Drug Allergies Allergy Unknown Verified 11/04/24 17:04 Review of Systems Review of Systems Narrative Review of Systems: Review of system reviewed and within normal limits except mentioned in HPI ED Exam Narrative Physical exam: VITAL SIGNS: Reviewed. GENERAL APPEARANCE: Alert and interactive, follows commands, no acute distress, HEAD AND FACE: Non-traumatic. ENT: PERRL, pink conjunctivitis, eyelid no trauma, Mucous membrane moist. NECK: Supple, nontender, no nuchal rigidity. CHEST: No tenderness, no crepitus, no paradoxical movement, no retractions. LUNGS: Clear, well ventilated, symmetric, no rales, no wheezing, no ronchi, no stridor, good breath sounds bilaterally. HEART: Regular rate, regular rhythm, no murmur, no gallops. ABDOMEN: Soft, positive bowel sounds, nondistended, no guarding, nontender, no rebound, no masses, RECTAL: Deferred. GENITAL: Deferred. NEUROLOGICAL: Gross motor function intact sensory function intact, Appropriate for age. MUSCULOSKELETAL: low back nontender, full range of motion. EXTREMITIES: Nontender, full range of motion. No bilateral lower extremity edema noted. SKIN: Color pink, dry, no rash, no lacerations, no abrasions, no contusions. LYMPHATICS: Deferred. Course Quality Measures none Orders Category Date Time Status EKG (ED ONLY) *Do not use* NOW Care 11/04/24 17:04 Completed EKG (ED Only) Stat Exams 11/04/24 17:04 Draft XR chest 2V Stat Exams 11/04/24 17:47 Completed B-Type Natriuretic Peptide Stat Lab 11/04/24 18:04 Completed CBC Stat Lab 11/04/24 18:04 Completed Comprehensive Metabolic Panel Stat Lab 11/04/24 18:04 Completed Drug Screen,Urine Stat Lab 11/04/24 17:55 Completed Magnesium Stat Lab 11/04/24 18:04 Completed Partial Thromboplastin Time Stat Lab 11/04/24 18:04 Completed Prothrombin Time with INR Stat Lab 11/04/24 18:04 Completed Troponin I Stat Lab 11/04/24 18:04 Completed Urinalysis Stat Lab 11/04/24 17:55 Completed Vital Signs Vital signs: Vital Signs Temperature 98.4 F 11/04/24 17:45 Pulse Rate 70 11/04/24 17:45 Respiratory Rate 20 11/04/24 17:45 Blood Pressure 99/67 11/04/24 17:45 Pulse Oximetry (%) 95 11/04/24 17:45 Oxygen Delivery Method Room Air 11/04/24 17:45 Discharge Plan Plan Patient Disposition: HOME (Self Care) Disposition Comment: Stable Prescriptions/Referrals Prescriptions/Med Rec: No Action albuterol sulfate [ProAir HFA] 90 mcg/actuation Hfa Aerosol Inhaler 2 puff INHALATION Q6H PRN (Reason: Wheezing) sitagliptin 25 mg Tablet 25 mg PO DAILY atorvastatin 80 mg Tablet 40 mg PO HS empagliflozin 10 mg Tablet 10 mg PO QDAY aspirin 81 mg Capsule 81 mg PO QDAY bumetanide 1 mg Tablet 1 mg PO TID Qty: 30 0RF Referrals: No Primary/Family,Physician [Primary Care Provider] - In 1 week Problem List Clinical Impression: CHF (congestive heart failure), CKD (chronic kidney disease) Patient/Caregiver Discharge Instructions Discharge Activity: activity as tolerated Education Materials: What Is Heart Failure, ED Chronic Kidney Disease (CKD) Additional Instructions: Thank you for the opportunity for serving you today. You are stable for discharged . You are advised to: Follow-up with your PCP in 1 to 2 days Follow-up with your spray mixer in [place] next week Return to ED for worsening of symptoms Print Language: Polish Stand Alone Forms: [facility] Award Info., Patient Portal Info Letter THERESA/SHER Supervising Physician TAMMI Supervising Physician: MD Alma Delia [facility] Patient Acuity Narrative: 74-year-old male patient with past medical history of HFrEF of 10 to 15% (04/2024), hypertension, hyperlipidemia, CKD, COPD secondary to [id number] smoking history, SEGUNDO, history of CVA, history of previous meth use, came in for evaluation regarding shortness of breath, gaining weight, and does not feel good. Patient denies any other complaints no medication was taken prior travel Patient's workup is significant for BNP of about 3280, patient's creatinine was noted to be 2.4. BUN of 45. Chest x-ray showed mild CHF. EKG showed paced rhythm, ventricular rate of 65 bpm, no ST segment elevation depression noted. Patient was noted to be having oxygen saturation 95% on room air, blood pressure is 99/67 and ambulatory with no pausing between I noticed him able to ambulate more than 40 feet without rest. Patient was advised to see spray mixer and billing department supervisor for worsening chronic kidney disease. Patient agrees with the plan. Patient stable for discharge home.
[2024-11-04 21:11] VITALS: BP 102/67; PULSE 67; RESP 18; TEMP 36.7; O2SAT 99
== END 2024-11-04 21:12 | disposition home or self-care (01) ==
PROVIDERS: Nurse Practitioner Primary Care; Emergency Provider Emergency Medicine
DX: I13.0 Hypertensive heart and chronic kidney disease with heart failure and stage 1 through stage 4 chronic kidney disease, or unspecified chronic kidney disease (principal); I50.20 Unspecified systolic (congestive) heart failure; N18.9 Chronic kidney disease, unspecified; Z87.891 Personal history of nicotine dependence
CPT/HCPCS: 36415; 71046; 80053; 80307; 81001; 83735; 83880; 84484; 85025; 85610; 85730; 93005; 99283